=== PATIENT | male | born 1950 | race Caucasian/White ===

== ENCOUNTER 2016-07-02 15:16 | Inpatient (IN) ==
[2016-07-02] MEDS ORDERED: 0.9 % SODIUM CHLORIDE 1,000 ML IV ONE (15:37)
--- NOTE | 2016-07-02 15:37 | Emergency Department Note ---
Wound/Laceration HPI - General Chief Complaint: Wound/Laceration Stated Complaint: Wound infection to ble Time Seen by Provider: 07/02/16 15:18 Source: patient Mode of arrival: ambulatory Limitations: no limitations - History of Present Illness HPI Narrative: This patient was sent over from wound care for infected leg wounds and concern for sepsis with hypotension. The only other complaint patient has some sores on his sacral area. - Related Data Home Medications Medication Instructions Recorded Confirmed Aspirin/Calcium Carbonate/Mag 162.5 mg PO DAILY 04/15/15 07/02/16 [Aspirin Buffered 325 mg Tab] Timolol 0.5% Ophth Drops [Timoptic 1 gtt OU DAILY 04/18/15 07/02/16 0.5% Ophth Drops] amiodarone 200 mg tablet 200 mg PO QDAY 04/23/15 07/02/16 furosemide 40 mg tablet 40 mg PO QDAY 04/23/15 07/02/16 metoprolol tartrate 25 mg tablet 75 mg PO BID tab 04/23/15 07/02/16 atorvastatin 10 mg tablet 10 mg PO QHS tab 06/11/15 07/02/16 lisinopril 5 mg tablet 2.5 mg PO BID 09/03/15 07/02/16 Previous Rx's Medication Instructions Recorded Accu-Chek 1 each FS ACHS #100 strip 04/18/15 allopurinol 100 mg tablet 200 mg PO QDAY #180 tab 06/11/15 levothyroxine 25 mcg tablet 25 mcg PO QDAY #90 tab 06/12/15 budesonide-formoterol HFA 160 2 inh INHALATION Q12H #10.2 g 09/03/15 mcg-4.5 mcg/actuation aerosol inhaler glipizide 5 mg tablet 5 mg PO BID #90 tab 09/03/15 Allergies Allergy/AdvReac Type Severity Reaction Status Date / Time Sulfa (Sulfonamide Allergy Intermediate UNKNOWN Verified 09/03/15 13:47 Antibiotics) [SULFA(SULFONAMIDE ANTIBIOTICS)] Review of Systems Constitutional: Denies: fever Eyes: Denies: eye pain ENT ED: Denies: ear pain Cardiovascular: Denies: chest pain Respiratory: Denies: cough Gastrointestinal: Denies: abdominal pain, nausea Genitourinary: Denies: urgency Musculoskeletal: Reports: back pain Integumentary: Reports: rash, lesions Neurological: Denies: headache Psychiatric: Denies: anxiety Past Medical History - Past Medical History Medical history: Reports: arthritis, atrial fibrillation, CHF, COPD, coronary artery disease, diabetes, glaucoma, hyperlipidemia, hypertension, renal disease , thyroid disease Surgical history ED: Reports: tonsillectomy Psychiatric history: Reports: PTSD - Social History Alcohol use: Reports: None Drug use: Reports: none Physical Exam - General Limitations: no limitations General appearance: alert - Head Head exam: atraumatic - Eye Eye exam: Present: normal appearance - ENT ENT exam: normal exam - Neck Neck exam: Present: normal inspection - Chest Chest inspection: Present: normal inspection - Respiratory Respiratory exam: Present: normal lung sounds bilaterally - Cardiovascular Cardiovascular exam: Present: regular rate, normal rhythm, normal heart sounds - Abdominal Exam Abdominal exam: Present: soft. Absent: distention, tenderness - Rectal Exam Rectal exam: Present: deferred - Neurological Exam Neurological exam: Present: alert - Psychiatric Psychiatric exam: Present: normal affect - Skin Skin exam: Present: warm, dry Course Vital Signs Temperature 96.2 F L 07/02/16 15:17 Pulse Rate 62 07/02/16 15:17 Respiratory Rate 20 07/02/16 15:17 Blood Pressure 87/24 07/02/16 15:17 Pulse Oximetry (%) 98 07/02/16 15:17 Temperature 96.2 F L 07/02/16 15:17 Pulse Rate 131 H 07/02/16 18:43 Respiratory Rate 20 07/02/16 15:17 Blood Pressure 104/67 07/02/16 18:43 Pulse Oximetry (%) 100 07/02/16 18:43 Wound/Laceration - Lab Data Result diagrams: 07/02/16 15:40 07/02/16 15:40 Lab Results 07/02/16 07/02/16 07/02/16 Range/Units 15:40 15:40 15:40 WBC 10.3 (4.5-11.0) K/mcL RBC 4.06 L (4.50-5.90) M/mcL Hgb 11.8 L (13.5-16.5) g/dL Hct 36.8 L (41.0-55.0) % MCV 90.7 (80.0-100.0) fL MCH 29.1 (26.0-34.0) pg MCHC 32.1 (31.0-36.0) g/dL RDW 18.7 H (11.5-14.5) % Plt Count 247 (140-440) K/mcL MPV 9.9 (7.4-10.4) fL Gran % 73.1 (38.0-78.0) % Lymph % (Auto) 13.8 L (15.5-49.0) % [place] % (Auto) 6.7 (1.0-9.0) % Eos % (Auto) 5.9 (0.0-7.0) % Baso % (Auto) 0.5 (0.0-2.0) % Gran # 7.5 (1.8-8.0) K/mcL Lymph # 1.4 L (1.5-4.8) K/mcL [place] # 0.7 (0.1-0.9) K/mcL Eos # 0.6 (0.0-0.7) K/mcL Baso # 0.1 (0.0-0.3) K/mcL VBG Lactic Acid 1.6 (0.5-2.2) mmol/L Sodium 134 (133-145) mmol/L Potassium 4.5 (3.3-5.1) mmol/L Chloride 95 L (96-108) mmol/L Carbon Dioxide 22 (22-30) mmol/L Anion Gap 17.0 H (8-16) BUN 71 H (8-23) mg/dl Creatinine 2.7 H (0.7-1.2) mg/dl GFR Calculation 24 Glucose 141 H (70-105) mg/dL Calcium 8.7 (8.6-10.4) mg/dl Total Bilirubin 0.3 (0.0-1.0) mg/dL AST 13 (0-37) U/l ALT 12 (0-40) U/l Alkaline Phosphatase 87 (39-117) U/L Total Protein 7.3 (5.9-8.4) gm/dL Albumin 3.4 (3.2-5.2) gm/dL Globulin 3.9 H (2.2-3.7) gm/dL Albumin/Globulin Ratio 0.9 L (1.0-2.3) Disposition Clinical Impression: Cellulitis Disposition: Xfer As Outpt/Obs ([facility]) Condition: Good Referrals: Bienvenido,Bandar L [Primary Care Provider] - Time of Disposition: 19:00
[2016-07-02] MEDS ORDERED: VANCOMYCIN 1,000 MG in 0.9 % SODIUM CHLORIDE 250 ML IV ONE (15:51)
[2016-07-02] MEDS ORDERED: PIPERACILLIN SODIUM/TAZOBACTAM 3.375 GM in DEXTROSE 5% IN WATER 50 ML IV SCH (16:00)
[2016-07-02] MEDS ORDERED: HYDROmorphone 2 MG/ML SYRINGE IV PRN ×2 (16:00→20:24)
[2016-07-02] MEDS ORDERED: ONDANSETRON 4 MG/2 ML VIAL IV ONE (16:01)
[2016-07-02 16:32] LABS: Basophils # (Auto) 0.1 K/mcL (0.0-0.3); Basophils % (Auto) 0.5 % (0.0-2.0); Eosinophils # (Auto) 0.6 K/mcL (0.0-0.7); Eosinophils % (Auto) 5.9 % (0.0-7.0); Granulocytes % (Auto) 73.1 % (38.0-78.0); Lymphocytes # (Auto) 1.4 K/mcL (1.5-4.8); Lymphocytes % (Auto) 13.8 % (15.5-49.0); Mean Cell Volume 90.7 fL (80.0-100.0); Mean Corpuscular HGB Conc 32.1 g/dL (31.0-36.0); Mean Corpuscular Hemoglobin 29.1 pg (26.0-34.0); Monocytes # (Auto) 0.7 K/mcL (0.1-0.9); Monocytes % (Auto) 6.7 % (1.0-9.0); Platelet Count 247 K/mcL (140-440); RBC 4.06 M/mcL (4.50-5.90); Red Cell Distribution Width 18.7 % (11.5-14.5)
[2016-07-02 17:00] LABS: ALT/SGPT 12 U/l (0-40); Albumin 3.4 gm/dL (3.2-5.2); Albumin/Globulin Ratio 0.9 (1.0-2.3); Alkaline Phosphatase 87 U/L (39-117); Blood Urea Nitrogen 71 mg/dl (8-23)
[2016-07-02] MEDS: 0.9 % SODIUM CHLORIDE 1,000 ML IV SCH ×2 (20:02→20:05)
[2016-07-02] MEDS ORDERED: 0.9 % SODIUM CHLORIDE 1,000 ML IV SCH (20:24)
[2016-07-02] MEDS ORDERED: traZODone HCL 50 MG TABLET PO PRN ×2 (20:24→22:03)
[2016-07-02] MEDS ORDERED: ACETAMINOPHEN 1,000 MG/100 ML BOTTLE IV PRN ×2 (20:24→22:03)
[2016-07-02] MEDS ORDERED: MAGNESIUM SULFATE 2 GM/50 ML BAG IV PRN ×2 (20:24→22:03)
[2016-07-02] MEDS ORDERED: DEXTROSE 50% 50 ML VIAL IV PRN (20:24)
[2016-07-02] MEDS ORDERED: ONDANSETRON 4 MG/2 ML VIAL IV PRN ×2 (20:24→22:03)
[2016-07-02] MEDS ORDERED: ACETAMINOPHEN 325 MG TABLET PO PRN ×2 (20:24→22:03)
[2016-07-02] MEDS ORDERED: guaiFENesin/CODEINE 10 ML UDC PO PRN ×2 (20:24→22:03)
[2016-07-02] MEDS ORDERED: VANCOMYCIN PER PHARMACY IV ONE ×2 (20:24→22:03)
[2016-07-02] MEDS ORDERED: METOPROLOL TARTRATE 25 MG TABLET PO SCH (21:00)
[2016-07-02] MEDS ORDERED: SENNOSIDES/DOCUSATE SODIUM 1 TAB TABLET PO SCH (21:00)
[2016-07-02] MEDS ORDERED: LISINOPRIL 5 MG TABLET PO SCH (21:00)
[2016-07-02] MEDS ORDERED: DOCUSATE SODIUM 100 MG CAPSULE PO SCH (21:00)
[2016-07-02] MEDS ORDERED: Budesonide/Formoterol Fumarate [Symbicort] 160/4.5 mcg Inhaler INH SCH (21:00)
[2016-07-02] MEDS ORDERED: INSULIN LISPRO 1 UNIT/0.01 ML UNIT SQ SCH (21:00)
[2016-07-02] MEDS ORDERED: ATORVASTATIN 20 MG TABLET PO SCH (21:00)
[2016-07-02] MEDS ORDERED: HEPARIN 5,000 UNIT/ML VIAL SQ SCH (21:00)
[2016-07-02] MEDS ORDERED: METOPROLOL TARTRATE 5 MG/5 ML VIAL IV ONE ×5 (21:20→23:38)
[2016-07-02] MEDS ORDERED: 0.9 % SODIUM CHLORIDE 10 ML SYRINGE IV SCH (22:00)
[2016-07-02 22:05] LABS: Basophils # (Auto) 0 K/mcL (0.0-0.3); Basophils % (Auto) 0.1 % (0.0-2.0); Eosinophils # (Auto) 0.6 K/mcL (0.0-0.7); Eosinophils % (Auto) 4.6 % (0.0-7.0); Granulocytes % (Auto) 77.5 % (38.0-78.0); Lymphocytes # (Auto) 1.1 K/mcL (1.5-4.8); Lymphocytes % (Auto) 9.2 % (15.5-49.0); Mean Cell Volume 90.8 fL (80.0-100.0); Mean Corpuscular HGB Conc 32.2 g/dL (31.0-36.0); Mean Corpuscular Hemoglobin 29.2 pg (26.0-34.0); Monocytes # (Auto) 1.1 K/mcL (0.1-0.9); Monocytes % (Auto) 8.6 % (1.0-9.0); Platelet Count 224 K/mcL (140-440); RBC 3.93 M/mcL (4.50-5.90); Red Cell Distribution Width 18.5 % (11.5-14.5)
[2016-07-02 22:13] LABS: Creatine Kinase MB 1.9 ng/ml (0-4.9)
[2016-07-02 22:17] LABS: Blood Urea Nitrogen 66 mg/dl (8-23); Creatine Kinase 35 IU/L (24-195)
[2016-07-02] MEDS ORDERED: METOPROLOL TARTRATE 25 MG TABLET PO ONE (23:20)
[2016-07-02] MEDS ORDERED: AMIODARONE HCL 200 MG TABLET ONE (23:48)
[2016-07-02] MEDS ORDERED: METOPROLOL TARTRATE 25 MG TABLET ONE (23:49)
[2016-07-03] MEDS ORDERED: PIPERACILLIN SODIUM/TAZOBACTAM 2.25 GM in DEXTROSE 5% IN WATER 50 ML IV SCH
--- NOTE | 2016-07-03 00:46 | History and Physical Report ---
DATE OF ADMISSION: 07/02/2016 DATE OF ADMISSION: 07/02/2016 REASON FOR ADMISSION: Weakness, hypotension, bilateral lower extremity cellulitis, redness, and referred to [facility] ER due to concerns from the wound care clinic. HISTORY OF CHIEF COMPLAINT: The patient is a 65-year-old with a known history of diabetes and extensive peripheral vascular disease, coronary artery disease status post CABG along with diabetic neuropathy and lower extremity wounds. The patient has been seen at the wound care clinic, and due to low blood pressures, fever and weakness, was referred to [facility] ER to rule out sepsis. Initial workup was significant for atrial fibrillation with intermittent rapid ventricular rate along with evidence of bilateral lower extremity cellulitis. The patient was started on antibiotic coverage after blood cultures were drawn. Hospitalist Service was consulted. At the time of examination, the patient is alert and able to provide most of the history. He is accompanied with daughter and son. Son endorses the patient being intermittently confused and gibberish over the last couple of weeks and has significant decline in overall status. The patient had a recent 4 vessel CABG and sees Dr. Flores for chronic kidney disease. The patient has been having difficulty urinating with poor urine output. He also has lack of appetite and has not eaten much and has not anything to drink over the last 36 hours. He feels significantly weak and dehydrated. Other than that, he denies diarrhea or dysuria. He endorses to bilateral lower extremity swelling, oozing and redness along with pain. He endorses intermittent shaking chills. REVIEW OF SYSTEMS: Ten-point review of system was performed and negative except for the ones discussed above. PAST MEDICAL HISTORY: 1. History of coronary artery disease with ischemic cardiomyopathy, EF 25 percent, status post 4-vessel CABG. 2. Diabetes mellitus type 2. 3. History of COPD. 4. Chronic kidney disease with a baseline creatinine of 1.9. Follows up with Dr. Flores. Current creatinine 2.7. 5. Atrial fibrillation, flutter. 6. Hypertension. 7. Hypothyroidism. 8. Hyperuricemia. PAST SURGICAL HISTORY: Recent CABG, 2016. SOCIAL HISTORY: The patient is a former smoker but quit in 2014, history of alcoholism, but quit, uses marijuana. His son and daughter are accompanying. His daughter Milly Durbin is the POA who can be reached at [phone]. PHYSICAL EXAMINATION: GENERAL: The patient is alert but in moderate distress, minimally short of breath. VITAL SIGNS: BMI 27. Height 6 feet 2 inches. Blood pressure 101/61, respiration rate 20, temperature 96.2, pulse 132, sats 95 percent on 3 liters of oxygen. HEENT: Pupils are sluggish and miotic, left pupillary asymmetry. No scleral icterus. Head is normocephalic. NECK: No lymphadenopathy. CHEST: S1 and S2. Tachycardia, irregular rhythm. Midline sternotomy incision. Diminished breath sounds at bases. ABDOMEN: Soft, nontender, sluggish bowel sounds. LOWER EXTREMITIES: Bilateral lower extremity excoriation along with redness, induration, erythema and oozing around the moreira; redness extends up to below the knee from mid foot, minimal lymphedema, with no cyanosis or clubbing. SKIN: Otherwise, no suspicious lesions. PSYCHIATRIC: Anxious. NEURO: Moving all 4 extremities. Occasional confusion. LABS AND IMAGING: White count 10.3, hemoglobin 11.8, platelets 247. Lactic acid 1.6. INR 1.6. Sodium 130, potassium 4.5, creatinine 2.7, and BUN 71. CRP 5.8, total protein 7.3. X-ray chest: Cardiomegaly, increased vascular prominence, left basilar infiltrate. ASSESSMENT AND PLAN: A 65-year-old admitted with sepsis along with mental status change and possible left lower lobe pneumonia along with atrial fibrillation with rapid ventricular response. 1. Sepsis by criteria. Start patient on crystalloids, antibiotic coverage. Evidence of end organ dysfunction including acute kidney injury/atrial fibrillation with rapid ventricular response. Cultures pending, broad antibiotic coverage and aggressive source evaluation. 2. Likely left lower lobe pneumonia. Start antibiotic coverage with Zosyn, vancomycin. Sputum cultures along with blood cultures, pulmonary toilet. 3. Atrial fibrillation with rapid ventricular response. Continue rate control with beta eugene/amiodarone. 4. Mental status change, rule out cerebrovascular accident with head CT. INR subtherapeutic. High risk of cardioembolic cerebrovascular accident. Continue aspirin. 5. Acute kidney injury, likely secondary to sepsis end organ effect. Continue monitoring renal function and consult nephrology. 6. Hypoxia secondary to likely pneumonia. Continue supplemental oxygen. ABGs. 7. Bilateral lower extremity cellulitis. Wound care consult. Continue antibiotic coverage along with aggressive wound care. 8. History of coronary artery disease. Continue prior home medications. 9. Hypothyroidism. Continue thyroxine. 10. History of gout, continue allopurinol. 11. Diabetes mellitus type 2. Continue prandial insulin/glipizide. 12. Hypertension/coronary artery disease. Continue LATONYA inhibitor/beta eugene. PLAN FOR TODAY: 1. Admit as inpatient. 2. Nephrology and Wound Care consult. 3. Sepsis management per guidelines. 4. Broad antibiotic coverage. 5. Rate control measures. If inadequate response to beta eugene use calcium channel eugene. 6. Consider transfer to tertiary center in light of high complexity admit and need for speciality backup if patient fails to improve. Overall, a high-complexity admit with [place] score 17, mandating high risk mortality in light of multiple comorbidities. The patient will be admitted to intensive care unit. TIME SPENT: Over 95 minutes, including 55 minutes history and physical and 40 minutes critical care time spent on rate control measures, CVA workup, discussions with care provider and care coordination. AA:shelley Job ID: [id number] Doc ID: [id number] Ariel HAIDER
[2016-07-03] MEDS: HYDROmorphone 2 MG/ML SYRINGE IV PRN ×5 (00:50→20:51)
[2016-07-03] MEDS ORDERED: PIPERACILLIN SODIUM/TAZOBACTAM 2.25 GM VIAL IV ONE ×2 (01:40→05:59)
[2016-07-03] MEDS: PIPERACILLIN SODIUM/TAZOBACTAM 2.25 GM in DEXTROSE 5% IN WATER 50 ML IV SCH ×4 (01:40→18:06)
[2016-07-03] MEDS: 0.9 % SODIUM CHLORIDE 1,000 ML IV SCH ×2 (01:45→18:10)
[2016-07-03] MEDS ORDERED: fentaNYL 100 MCG/2 ML VIAL IV ONE ×2 (02:13→02:32)
[2016-07-03 05:58] LABS: Mean Cell Volume 89.8 fL (80.0-100.0); Mean Corpuscular HGB Conc 32.4 g/dL (31.0-36.0); Mean Corpuscular Hemoglobin 29.1 pg (26.0-34.0); Platelet Count 192 K/mcL (140-440); RBC 3.41 M/mcL (4.50-5.90); Red Cell Distribution Width 18.4 % (11.5-14.5)
[2016-07-03] MEDS: 0.9 % SODIUM CHLORIDE 10 ML SYRINGE IV SCH ×3 (06:01→21:02)
--- NOTE | 2016-07-03 06:11 | XRay Report ---
CLINICAL INFORMATION: Tachycardia. Code stroke. TECHNIQUE: AP portable semiupright chest x-ray COMPARISON: Previous examination dated 04/14/2015, 07/11/2008 FINDINGS: Previous median sternotomy. No focal pulmonary parenchymal infiltrate or mass. Heart size and vascularity are within normal limits. No pulmonary edema. No acute or focal abnormality. IMPRESSION: No acute abnormality. Interpreted and Authenticated by: Pramod Lucio 07/03/16
--- NOTE | 2016-07-03 06:13 | Cat Scan Report ---
CLINICAL INFORMATION: Stroke symptoms COMPARISON: None. TECHNIQUE: Axial noncontrast-enhanced images through the brain. FINDINGS: No acute intracranial hemorrhage. No intra-axial hematoma. No focal intra-axial attenuation abnormality. No localized mass effect. There is cerebral atrophy with enlarged ventricles and superficial subarachnoid spaces for age. Brainstem and cerebellum are negative. No extra-axial, intracranial abnormality. No subdural hematoma. No subarachnoid hemorrhage. Basilar cisterns are normal. No calvarial lesions. Skull base is negative. There are findings consistent with acute right maxillary sinusitis. Examination was initially interpreted by [facility] IMPRESSION: 1. Cerebral atrophy. 2. No acute intracranial hemorrhage. No acute abnormality. 3. Air-fluid level in right maxillary sinus. Interpreted and Authenticated by: Pramod Lucio 07/03/16
[2016-07-03 06:19] LABS: Vancomycin,Random 9.1 ug/ml
[2016-07-03 06:35] LABS: ALT/SGPT 8 U/l (0-40); Albumin 2.6 gm/dL (3.2-5.2); Albumin/Globulin Ratio 0.8 (1.0-2.3); Alkaline Phosphatase 63 U/L (39-117); Bilirubin,Direct < 0.2 mg/dL (0.0-0.3); Blood Urea Nitrogen 67 mg/dl (8-23); Gamma Glutamyl Transpeptidase 15 U/L (8-61); Magnesium 2.1 mg/dL (1.6-2.5); Phosphorous 4.8 mg/dL (2.7-4.5); Uric Acid 9.7 mg/dL (2.5-8.0)
[2016-07-03] MEDS: glipiZIDE 5 MG TABLET PO SCH ×2 (07:23→18:06)
[2016-07-03] MEDS: PANTOPRAZOLE 40 MG TABLET PO SCH (07:24)
[2016-07-03] MEDS: LEVOTHYROXINE 25 MCG TABLET PO SCH (07:24)
[2016-07-03] MEDS ORDERED: LEVOTHYROXINE 25 MCG TABLET PO SCH (07:30)
[2016-07-03] MEDS ORDERED: glipiZIDE 5 MG TABLET PO SCH (07:30)
[2016-07-03] MEDS ORDERED: PANTOPRAZOLE 40 MG TABLET PO SCH (07:30)
[2016-07-03] MEDS: INSULIN LISPRO 1 UNIT/0.01 ML UNIT SQ SCH ×3 (07:53→20:43)
[2016-07-03] MEDS: FUROSEMIDE 40 MG TABLET PO SCH (07:55)
[2016-07-03] MEDS: ALLOPURINOL 100 MG TABLET PO SCH (07:55)
[2016-07-03] MEDS: ASPIRIN 81 MG TAB.CHEW PO SCH (07:55)
[2016-07-03] MEDS: METOPROLOL TARTRATE 25 MG TABLET PO SCH ×2 (07:56→21:01)
[2016-07-03] MEDS: FOLIC ACID 1 MG TABLET PO SCH (07:56)
[2016-07-03] MEDS: DOCUSATE SODIUM 100 MG CAPSULE PO SCH ×2 (07:57→20:46)
[2016-07-03] MEDS: AMIODARONE HCL 200 MG TABLET PO SCH (07:57)
[2016-07-03] MEDS: HEPARIN 5,000 UNIT/ML VIAL SQ SCH ×2 (07:57→20:46)
[2016-07-03] MEDS ORDERED: AMIODARONE HCL 200 MG TABLET PO SCH (08:00)
[2016-07-03] MEDS: MULTIVIT,THER IRON,CA,FA & MIN 1 TABLET PO SCH (08:01)
[2016-07-03 08:31] LABS: Anisocytosis 1+ (NONE SEEN); Band Neutrophils % 3 % (0-10); Eosinophils % (Manual) 3 % (0-7); Lymphocytes % 2 % (15-49); Monocytes % (Manual) 7 % (1-9); Platelet Estimate NORMAL (NORMAL); RBC Morphology ABNORM (NORMAL); Segmented Neutrophils % 85 % (38-78)
[2016-07-03] MEDS ORDERED: THIAMINE 100 MG in 0.9 % SODIUM CHLORIDE 50 ML IV SCH (09:00)
[2016-07-03] MEDS ORDERED: ALLOPURINOL 100 MG TABLET PO SCH (09:00)
[2016-07-03] MEDS ORDERED: LISINOPRIL 5 MG TABLET PO SCH (09:00)
[2016-07-03] MEDS ORDERED: TIMOLOL 0.5% OPHTH DROPS BOTTLE 5ML OU SCH (09:00)
[2016-07-03] MEDS ORDERED: FOLIC ACID 1 MG TABLET PO SCH (09:00)
[2016-07-03] MEDS ORDERED: ASPIRIN 81 MG TAB.CHEW PO SCH (09:00)
[2016-07-03] MEDS ORDERED: MULTIVIT,THER IRON,CA,FA & MIN 1 TABLET PO SCH (09:00)
[2016-07-03] MEDS ORDERED: FUROSEMIDE 40 MG TABLET PO SCH (09:00)
[2016-07-03] MEDS ORDERED: NOREPINEPHRINE BITARTRATE 16 MG in 0.9 % SODIUM CHLORIDE 234 ML IV SCH (09:15)
[2016-07-03] MEDS ORDERED: VASOPRESSIN 20 UNIT in DEXTROSE 5% IN WATER 99 ML IV SCH (09:15)
[2016-07-03] MEDS: 0.9 % SODIUM CHLORIDE 250 ML IV SCH ×4 (10:07→21:45)
[2016-07-03] MEDS: Budesonide/Formoterol Fumarate [Symbicort] 160/4.5 mcg Inhaler INH SCH ×2 (10:08→21:22)
[2016-07-03] MEDS: THIAMINE 100 MG in 0.9 % SODIUM CHLORIDE 50 ML IV SCH (10:08)
[2016-07-03] MEDS: TIMOLOL 0.5% OPHTH DROPS BOTTLE 5ML OU SCH (10:09)
--- NOTE | 2016-07-03 10:40 | Internal Med Progress Note ---
Medical - PN: Subj Patient information: Note initiated : 07/03/16 at 10:28 am Patient: Guy Hernandez a 65 y/o M admitted on 07/02/16 for Wound Infection/ Sepsis, Cellulitis. Chief Complaint: [] Interval history: 07/02- patient admitted with A. fib RVR, severe sepsis acute organ dysfunction and hypotension from lower extremity cellulitis. patient carries a history of diabetic hypertensive/nephrosclerosis with stage III kidney disease and creatinine of 2.7 on presentation. he was referred from wound care clinic for possible wound debridement. Patient carries a history of ischemic cardiomyopathy with EF 25% and recent 4 vessel CABG. patient admitted to ICU after he had a brief episode of neurological changes with increasing confusion and dysarthric speech on medical floor. Negative stat head CT. 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 Patient carries a history of atrial fib flutter. INR was subtherapeutic at 1.6. High risk cardioembolic CVA. Family made aware of the entire situation including possibility of stroke. attempts to transfer to tertiary Center failed due to lack of available beds at [facility]. Patient not a candidate for TPA in light of Coumadin/aspirin and unclear time of onset of symptoms as per son patient has had similar symptoms within intermittent confusion over the last couple of weeks. Wound care, nephrology consult ordered. patient admitted to ICU for close neuro checks/A. fib RVR and severe sepsis management. ABG pH 7.35/41/163 on 8 L oxygen. x-ray chest /stat head CTno acute abnormality. Over 75 minutes critical care time spent in stabilization and care coordination during discussions with physicians. 2/2- patient alert and responding to verbal commands. continues to be critically ill. ventricular rate controlled on amiodarone/metoprolol, blood pressures around 80s. Hypoxic requiring 4 L oxygen however negative chest imaging for infectious process. V/Q mismatch based on ABGs. Given tachycardia hypoxia PE high in differential. full dose anticoagulation on hold due to risk of hemorrhagic conversion and resume if no evidence of acute stroke. worsening leukocytosis at 14,000. potassium at 5.7. Creatinine 2.6. - Constitutional Vitals: Vital Signs Temp Pulse Resp BP Pulse Ox 98.6 F 108 H 20 88/56 92 07/03/16 08:00 07/03/16 08:00 07/03/16 08:00 07/03/16 08:00 07/03/16 08:00 Period Temp Pulse Resp BP Sys/Zee Pulse Ox Last 24 Hr 98.6 F-102.5 F 93-146 15-24 76-145/50-92 89-100 Intake and Output 07/02/16 07/03/16 07/03/16 21:59 05:59 13:59 Intake Total 520 / 520 Output Total 381 / 381 450 / 450 Balance 139 / 139 -450 / -450 Weight 214 lb 214 lb Intake & Output: Intake & Output 07/02/16 07/03/16 07/03/16 21:59 05:59 13:59 Intake Total 520 / 520 Output Total 381 / 381 450 / 450 Balance 139 / 139 -450 / -450 Weight 214 lb 214 lb Intake: IV 100 / 100 Oral 420 / 420 Output: Urine Catheter Amount 380 / 380 450 / 450 # of times incontinent of 1 / 1 urine Other: # Voids 1 General appearance: cooperative, no acute distress Exam: no unilateral deficits A. fib with intermittent RVR Hypotensive Poor urine output anxious Nondistended abdomen Medical - PN: Obj Da - Labs CBC & Chem 7: 07/03/16 04:00 07/03/16 04:00 Labs: Abnormal Lab Results 07/03/16 07/03/16 07/02/16 04:00 04:00 21:10 WBC 14.0 H RBC 3.41 L Hgb 9.9 L Hct 30.6 L RDW 18.4 H Lymph % (Auto) Gran # Lymph # [place] # Seg Neutrophils % 85 H Lymphocytes % 2 L RBC Morphology Abnorm A Anisocytosis 1+ A PT INR Potassium 5.7 H 5.5 H Carbon Dioxide 20 L 21 L BUN 67 H 66 H Creatinine 2.6 H 2.5 H Glucose 183 H 115 H Uric Acid 9.7 H Calcium 7.7 L 8.5 L Phosphorus 4.8 H Total Protein 5.7 L Albumin 2.6 L Albumin/Globulin Ratio 0.8 L 07/02/16 07/02/16 21:10 21:10 WBC 12.5 H RBC 3.93 L Hgb 11.5 L Hct 35.7 L RDW 18.5 H Lymph % (Auto) 9.2 L Gran # 9.7 H Lymph # 1.1 L [place] # 1.1 H Seg Neutrophils % Lymphocytes % RBC Morphology Anisocytosis PT 19.1 H INR 1.6 H Potassium Carbon Dioxide BUN Creatinine Glucose Uric Acid Calcium Phosphorus Total Protein Albumin Albumin/Globulin Ratio Meds: Medications Acetaminophen (Tylenol) 650 mg PO Q4-6HP PRN PRN Reason: PAIN/FEVER > 101 Allopurinol (Zyloprim) 200 mg PO QDAY [facility] Last Admin: 07/03/16 07:55 Dose: 200 mg Amiodarone HCl (Cordarone) 200 mg PO QAMCC [facility] Last Admin: 07/03/16 07:57 Dose: 200 mg Aspirin (Aspirin) 162 mg PO DAILY [facility] Last Admin: 07/03/16 07:55 Dose: 162 mg Atorvastatin Calcium (Lipitor) 10 mg PO HS [facility] Dextrose (Dextrose 50%) 0 ml IV UD PRN PRN Reason: Hypoglycemia Diagnostic Test (Pha) (Accu-Chek) 1 each FS ACHS [facility] Last Admin: 07/03/16 07:53 Dose: 1 each Docusate Sodium (Colace) 100 mg PO BID [facility] Last Admin: 07/03/16 07:57 Dose: 100 mg Folic Acid (Folic Acid) 1 mg PO DAILY [facility] Last Admin: 07/03/16 07:56 Dose: 1 mg Furosemide (Lasix) 40 mg PO QDAY [facility] Last Admin: 07/03/16 07:55 Dose: 40 mg Glipizide (Glucotrol) 5 mg PO BIDAC [facility] Last Admin: 07/03/16 07:23 Dose: 5 mg Guaifenesin/Codeine Phosphate (Robitussin Ac) 10 ml PO Q4HP PRN PRN Reason: Cough Heparin Sodium (Porcine) (Heparin) 5,000 unit SQ Q12 [facility] Last Admin: 07/03/16 07:57 Dose: 5,000 unit Hydromorphone HCl (Dilaudid) 0 mg IV Q4HP PRN PRN Reason: Pain Last Admin: 07/03/16 07:27 Dose: 0.5 mg Magnesium Sulfate (Magnesium Sulfate) 2 gm in 50 mls @ 50 mls/hr IV UD PRN PRN Reason: MG = or < 1.7 Sodium Chloride (Sodium Chloride 0.9%) 1,000 mls @ 50 mls/hr IV .Q20H [facility] Stop: 07/05/16 08:23 Last Admin: 02/01/17 20:05 Dose: 50 mls/hr Acetaminophen (Ofirmev) 1,000 mg in 100 mls @ 200 mls/hr IV Q6HP PRN PRN Reason: PAIN/FEVER > 101 Last Infusion: 07/03/16 01:16 Dose: Infused Piperacillin Sod/Tazobactam (Sod 2.25 gm/ Dextrose) 50 mls @ 100 mls/hr IV Q6H [facility] Last Admin: 07/03/16 06:00 Dose: Not Given Thiamine HCl 100 mg/ Sodium (Chloride) 51 mls @ 50 mls/hr IV DAILY [facility] Stop: 07/05/16 10:02 Last Admin: 07/03/16 10:08 Dose: 50 mls/hr Sodium Chloride (Sodium Chloride 0.9%) 250 mls @ 20 mls/hr IV .[id number] [facility] Last Admin: 07/03/16 10:07 Dose: 20 mls/hr Norepinephrine Bitartrate 16 (mg/ Sodium Chloride) 250 mls @ 9.37 mls/hr IV Q24H ALISSA; 10 MCG/MIN PRN Reason: Protocol Last Admin: 07/03/16 10:07 Dose: 4 mcg/min, 3.75 mls/hr Sodium Chloride (Sodium Chloride 0.9%) 250 mls @ 20 mls/hr IV .[id number] [facility] Last Admin: 07/03/16 10:09 Dose: 20 mls/hr Vancomycin HCl 1,000 mg/ (Sodium Chloride) 250 mls @ 250 mls/hr IV ONCE ONE Stop: 07/03/16 11:59 Insulin Human Lispro (Humalog) 0 unit SQ ACHS [facility] PRN Reason: Protocol Last Admin: 07/03/16 07:53 Dose: 3 unit Iron Carb/Multivit/Railroad Wheels And Axle Inspector/Folic Acid (Multivitamin W/Minerals) 1 tab PO DAILY [facility] Last Admin: 07/03/16 08:01 Dose: 1 tab Levothyroxine Sodium (Synthroid) 25 mcg PO QAMAC [facility] Last Admin: 07/03/16 07:24 Dose: 25 mcg Lisinopril (Zestril) 2.5 mg PO BID [facility] Last Admin: 07/03/16 07:54 Dose: 2.5 mg Metoprolol Tartrate (Lopressor) 75 mg PO BID [facility] Last Admin: 07/03/16 07:56 Dose: Not Given Ondansetron HCl (Zofran) 4 mg IV Q4-6HP PRN PRN Reason: Nausea And Vomiting Pantoprazole Sodium (Protonix) 40 mg PO QAMAC [facility] Last Admin: 07/03/16 07:24 Dose: 40 mg Budesonide/Formoterol Fumarate [Symbicort] 160/4.5 Mcg Inhaler 2 dose INH Q12H [facility] Last Admin: 07/03/16 10:08 Dose: Not Given Senna/Docusate Sodium (Senna Plus Tablet) 1 tab PO HS [facility] Sodium Chloride (Saline Flush) 10 ml IV Q8 [facility] Last Admin: 07/03/16 06:01 Dose: Not Given Timolol Maleate (Timoptic 0.5% Ophth Drops) 1 gtt OU DAILY [facility] Last Admin: 07/03/16 10:09 Dose: Not Given Trazodone HCl (Desyrel) 50 mg PO HSP PRN PRN Reason: Insomnia Last Admin: 07/02/16 23:39 Dose: 50 mg Medical - PN: A/P - Time Spent With Patient Total time spent is greater than 50% in coordination of care (as documented) at patient's floor/unit and/or counseling patient: Greater than 35 minutes (critical care time 75 minutes) (1) Septic shock Status: Acute Assessment and plan: * Septic shock with multiorgan dysfunction. A. fib RVR/ONUR- likely source [place] cellulitis. Broad antibiotic coverage. Cultures pending. Crystalloids and vasopressors to keep map at goal. Critically ill. [place] score over 2084 high-risk mortality. * A. fib RVR on amiodarone/metoprolol-continue rate control measures * lower extremity cellulitis-on Zosyn/vancomycin. Wound care consulted * New onset mental status changes rule out CVA in light of sub-therapeutic INR and high risk cardiac embolic CVA secondary to A. fib flutter. Avoid full dose and decortication until MRI negative * Hypoxia with tachycardia -very high risk PE based on [place] score. we'll start full dose and accommodation if MRI negative to avoid hemorrhagic conversion with early anticoagulation. * acute and chronic kidney disease-nephrology consulted * Hyperkalemia-nephrology on board * History of DM type II-prandial insulin/glipizide * ischemia ischemic cardiomyopathy EF 25% status post 4 vessel CABG continue metoprolol/lisinopril/amiodarone/ * history of gout on allopurinol * hypothyroidism on thyroxine * Full CODE STATUS Plan * Await MRI brain * septic shock management per guidelines * Nephrology/wound consult * start full dose anticoagulation if no evidence of acute CVA * Pre-existing medical condition management as above * High risk mortality based on [place] II score critical care time over 75 minutes spent on review of blood gas/drips pressure management/discussion with are providers and on care coordination Current Visit: Yes Medical - PN: Qual - VTE Deep Vein Thrombosis/Pulmonary Embolism Present on Admission: No
[2016-07-03] MEDS ORDERED: VANCOMYCIN 1,000 MG in 0.9 % SODIUM CHLORIDE 250 ML IV ONE (11:00)
[2016-07-03 12:30] LABS: Appearance,Urine CLEAR; Bilirubin,Urine NEG (NEG); Color,Urine YELLOW; Glucose,Urine (UA) 50 mg/dL (NEG); Leukocyte Esterase,Urine NEG /uL (NEG); Nitrate,Urine NEG (NEG); Protein,Urine NEG (NEG); Specific Gravity,Urine 1.012 (1.000-1.035); Urine Blood NEG mg/dL (<0.03); Urobilinogen,Urine NEG (NEG)
[2016-07-03 12:43] LABS: Strep Pneumoniae Antigen - UR NEGATIVE (NEGATIVE)
[2016-07-03] MEDS: MUPIROCIN CRM 2% 15 GM TUBE TOPICAL SCH ×2 (13:57→20:44)
[2016-07-03] MEDS ORDERED: WARFARIN 2.5 MG TABLET PO ONE (14:00)
[2016-07-03 14:05] LABS: Blood Urea Nitrogen 66 mg/dl (8-23)
--- NOTE | 2016-07-03 15:01 | Nephrology Consult Note ---
[id number] Service Date, if different from initiated Date: [] Patient: Guy Hernandez 65 y/o M admitted on 07/02/16 for Wound Infection/ Sepsis, Cellulitis. Chief Complaint: [] Consult date: 07/03/16 acute renal failure, hyperkalemia Requesting physician: Ariel Frias - Chief Complaint hypotension - History of Present Illness Patient is a 65 y/o white male with PMH of HTN, DM type 2, CAD, CHF, CKD and other multiple medical issues who was sent to the ED yesterday for evaluation of hypotension Patient could not provide clear history He states that he was discharged from [facility] a few weeks ago, he has been struggling with edema and LE wounds and was following with wound care for the same, he was seen by Dr Rojo yesterday and was found ot be hypotensive, Afib with RVR and was sent to the ED, patient later was found to have confusion and dysarthria and transferred to ICU overnight Head CT was negative for CVA, MRI brain is pending The patient was alert and able to provide some information He admits to non compliance with diet since discharge, also has been taking NSAIDS every day for pain c/o worsening edema denies SOB, CP c/o poor urinary output while at home, this has improved today denies fever denies GI symptoms Review of Systems All systems PM: reviewed and no additional remarkable complaints except as stated (as in HPI) Past History Past medical history: HTN, DM type 2 CAD CHF CKD COPD Afib hypothyroidism h/o hyperkalemia Past surgical history: h/o colonoscopy states had CABG done last year Past family history: not pertinent Past social history: states recently discharged from has h/o alcohol abuse Medications and Allergies Home Medications Medication Instructions Recorded Confirmed Type Aspirin/Calcium Carbonate/Mag 162.5 mg PO DAILY 04/15/15 07/02/16 History [Aspirin Buffered 325 mg Tab] Timolol 0.5% Ophth Drops [Timoptic 1 gtt OU DAILY 04/18/15 07/02/16 History 0.5% Ophth Drops] amiodarone 200 mg tablet 200 mg PO QDAY 04/23/15 07/02/16 History furosemide 40 mg tablet 40 mg PO QDAY 04/23/15 07/02/16 History metoprolol tartrate 25 mg tablet 75 mg PO BID tab 04/23/15 07/02/16 History atorvastatin 10 mg tablet 10 mg PO QHS tab 06/11/15 07/02/16 History lisinopril 5 mg tablet 2.5 mg PO BID 09/03/15 07/02/16 History Allergies Allergy/AdvReac Type Severity Reaction Status Date / Time Sulfa (Sulfonamide Allergy Intermediate UNKNOWN Verified 09/03/15 13:47 Antibiotics) [SULFA(SULFONAMIDE ANTIBIOTICS)] Exam - Vital Signs Vital signs: Temp Pulse Resp BP Pulse Ox 99.2 F 118 H 16 95/64 94 07/03/16 14:00 07/03/16 14:00 07/03/16 14:00 07/03/16 14:00 07/03/16 14:00 - General Appearance General appearance: appears started age, chronically ill EENT: mucous membranes moist Neck: JVD Respiratory: clear Cardiology: no rub, edema, irregular rhythm Gastrointestinal: no tenderness, no guarding Integumentary: warm and dry Neurologic: no asterixis, alert and oriented x3 Musculoskeletal: no erythema, no cyanosis Psychiatric: mood/affect appropriate Results - Lab Results 07/03/16 04:00 07/03/16 10:59 Most recent lab results Calcium 8.0 mg/dl (8.6-10.4) L 07/03/16 10:59 Phosphorus 4.8 mg/dL (2.7-4.5) H 07/03/16 04:00 Magnesium 2.1 mg/dL (1.6-2.5) 07/03/16 04:00 Assessment and Plan (1) Acute on chronic renal failure S.Creatinine 2.7-2.5, bun in 60's s.creatinine last august was 1.7-1.8, no labs since so unclear if renal function had declined in the interim period recent hypotension, sepsis, NSAID use likely contributing will obtain urinary studies will hold ACEI given persistent hyperkalemia please keep MAP to more than 65 please dose meds to egfr avoid nephrotoxic medications keep I/O, monitor vitals Hyperkalemia: from renal failure, use of ACEI lisinopril held will give a dose of kayexalate today on lasix and improved urine output so this will help diet changed to renal diet will ct to monitor Edema from CHF: on lasix 40 oral, would continue the same dose at present given sepsis would no increase the dose no pul edema Anemia: etiology multifactorial with infection, CKD contributing Will follow along Thank you for giving me an opportunity to participate in Mr Hernandez's medical care, appreciate it Status: Acute
--- NOTE | 2016-07-03 17:46 | General Surgery Consult Note ---
History of Present Illness Patient information: Note initiated : 07/03/16 at 5:36 pm Service Date, if different from initiated Date: [] Patient: Guy Hernandez 65 y/o M admitted on 07/02/16 for Wound Infection/ Sepsis, Cellulitis. Chief Complaint: [] Reason for consult: wound care Requesting physician: Ariel Frias History of present illness: 07/03/2016 I saw this patient in the morning along with the nursing staff and subsequently a along with Dr. Doan hospitalist physician. Patient is a 65-year-old male. He was sent from the wound care to the emergency room to be evaluated and managed for his acute change in mental status and deterioration of wounds all of both lower extremities. This was a significant development and interval change from his last evaluation. Patient is a middle-aged with long-standing history of posttraumatic stress disorder, to some extent self-neglect of his wounds. It has become progressively difficult to take care of him at home for further management. reportedly, patient was feeling extremely cold for the last 2 days. He was in bathtub for few hours yesterday. When he presented to the wound care center he had cold cyanotic feet and toes with grossly infected wounds of both legs with foul greenish yellow drainage. This was sepsis syndrome with underlying systemic involvement of other organs as well. Since admission, he has been appropriately treated under the dilation of hospitalist physician Dr. Doan . Evaluated by Dr. Flores director employee communications. Appreciate help and consultation of these physicians. Yesterday, I discussed his situation with the nurse practitioner Bandar Zarate at the [facility] in [facility]. reportedly, patient had declined care at the [facility] in the past. But at this time patient has reconsidered his situation and is agreeable to be admitted to the [facility] for further management and supportive care, physical therapy and wound management. Review of Systems ROS unobtainable: other (As per HPI) Past History Past medical history: hypertension type 2 diabetes coronary artery disease congestive heart failure and posttraumatic stress disorder.. Additionally he had cardiac arrhythmias when he was admitted yesterday. Past surgical history: open heart surgery in past. Past family history: patient lives by himself. He has his children living nearby him. Medications and Allergies Home Medications Medication Instructions Recorded Confirmed Type Aspirin/Calcium Carbonate/Mag 162.5 mg PO DAILY 04/15/15 07/02/16 History [Aspirin Buffered 325 mg Tab] Timolol 0.5% Ophth Drops [Timoptic 1 gtt OU DAILY 04/18/15 07/02/16 History 0.5% Ophth Drops] amiodarone 200 mg tablet 200 mg PO QDAY 04/23/15 07/02/16 History furosemide 40 mg tablet 40 mg PO QDAY 04/23/15 07/02/16 History metoprolol tartrate 25 mg tablet 75 mg PO BID tab 04/23/15 07/02/16 History atorvastatin 10 mg tablet 10 mg PO QHS tab 06/11/15 07/02/16 History lisinopril 5 mg tablet 2.5 mg PO BID 09/03/15 07/02/16 History Allergies Allergy/AdvReac Type Severity Reaction Status Date / Time Sulfa (Sulfonamide Allergy Intermediate UNKNOWN Verified 09/03/15 13:47 Antibiotics) [SULFA(SULFONAMIDE ANTIBIOTICS)] Exam Temp Pulse Resp BP Pulse Ox 99.5 F 112 H 14 105/69 100 07/03/16 16:00 07/03/16 16:00 07/03/16 16:00 07/03/16 16:00 07/03/16 16:00 - General physical appearance well developed, well nourished, moderate distress, moderate pain, chronically ill - Eyes PERRL, normal ocular movement - ENT normal pinna, normal nares, normal mucosa, no congestion, poor long term - Head Head exam IM: Present: atraumatic, normal inspection, normocephalic - Neck no masses, no bruits, trachea midline, no lymphadectomy, no venous distension - Cardiovascular Cardiovascular exam IM: Present: irregular rhythm - Respiratory normal expansion, normal respiratory effort absent breath sounds: bilateral (decreased breath sounds at bases) - Abdomen Abdomen: Present: soft, non tender, bowel sounds - Genitourinary Present: normal penis with no external lesions, other (Antony catheter draining clear urine) - Integumentary Present: other (grossly infected skin and subcutaneous region involving anterior aspect of both legs over the moreira area and dorsal aspect ) - Neurologic Present: normal coordination, other (stiffness of bolower extremis and signifiant deconditig from lack of physical therapy and activity) - Musculoskeletal Present: other (eessentially bedridden patient with stiffness of both lower extremities.) - Psychiatric Present: oriented to time, oriented to person, oriented to place, speech is normal, memory intact, other (depressed posttraumatic stress disorder. He is a [place] .) Results - Labs 07/03/16 04:00 07/03/16 10:59 Abnormal lab results 07/02/16 07/02/16 07/02/16 Range/Units 21:10 21:10 21:10 WBC 12.5 H (4.5-11.0) K/mcL RBC 3.93 L (4.50-5.90) M/mcL Hgb 11.5 L (13.5-16.5) g/dL Hct 35.7 L (41.0-55.0) % RDW 18.5 H (11.5-14.5) % Lymph % (Auto) 9.2 L (15.5-49.0) % Gran # 9.7 H (1.8-8.0) K/mcL Lymph # 1.1 L (1.5-4.8) K/mcL [place] # 1.1 H (0.1-0.9) K/mcL Seg Neutrophils % (38-78) % Lymphocytes % (15-49) % RBC Morphology (NORMAL) Anisocytosis (NONE SEEN) PT 19.1 H (11.9-14.5) sec INR 1.6 H (0.9-1.1) Potassium 5.5 H (3.3-5.1) mmol/L Carbon Dioxide 21 L (22-30) mmol/L Anion Gap (8-16) BUN 66 H (8-23) mg/dl Creatinine 2.5 H (0.7-1.2) mg/dl Glucose 115 H (70-105) mg/dL Uric Acid (2.5-8.0) mg/dL Calcium 8.5 L (8.6-10.4) mg/dl Phosphorus (2.7-4.5) mg/dL Total Protein (5.9-8.4) gm/dL Albumin (3.2-5.2) gm/dL Albumin/Globulin Ratio (1.0-2.3) Urine Glucose (UA) (NEG) mg/dL U [place] Prot/Creat Ratio mg:mg 07/03/16 07/03/16 07/03/16 Range/Units 04:00 04:00 10:59 WBC 14.0 H (4.5-11.0) K/mcL RBC 3.41 L (4.50-5.90) M/mcL Hgb 9.9 L (13.5-16.5) g/dL Hct 30.6 L (41.0-55.0) % RDW 18.4 H (11.5-14.5) % Lymph % (Auto) (15.5-49.0) % Gran # (1.8-8.0) K/mcL Lymph # (1.5-4.8) K/mcL [place] # (0.1-0.9) K/mcL Seg Neutrophils % 85 H (38-78) % Lymphocytes % 2 L (15-49) % RBC Morphology Abnorm A (NORMAL) Anisocytosis 1+ A (NONE SEEN) PT 21.2 H (11.9-14.5) sec INR 1.8 H (0.9-1.1) Potassium 5.7 H (3.3-5.1) mmol/L Carbon Dioxide 20 L (22-30) mmol/L Anion Gap (8-16) BUN 67 H (8-23) mg/dl Creatinine 2.6 H (0.7-1.2) mg/dl Glucose 183 H (70-105) mg/dL Uric Acid 9.7 H (2.5-8.0) mg/dL Calcium 7.7 L (8.6-10.4) mg/dl Phosphorus 4.8 H (2.7-4.5) mg/dL Total Protein 5.7 L (5.9-8.4) gm/dL Albumin 2.6 L (3.2-5.2) gm/dL Albumin/Globulin Ratio 0.8 L (1.0-2.3) Urine Glucose (UA) (NEG) mg/dL U [place] Prot/Creat Ratio mg:mg 07/03/16 07/03/16 07/03/16 Range/Units 10:59 11:37 11:37 WBC (4.5-11.0) K/mcL RBC (4.50-5.90) M/mcL Hgb (13.5-16.5) g/dL Hct (41.0-55.0) % RDW (11.5-14.5) % Lymph % (Auto) (15.5-49.0) % Gran # (1.8-8.0) K/mcL Lymph # (1.5-4.8) K/mcL [place] # (0.1-0.9) K/mcL Seg Neutrophils % (38-78) % Lymphocytes % (15-49) % RBC Morphology (NORMAL) Anisocytosis (NONE SEEN) PT (11.9-14.5) sec INR (0.9-1.1) Potassium 5.7 H (3.3-5.1) mmol/L Carbon Dioxide 18 L (22-30) mmol/L Anion Gap 18.0 H (8-16) BUN 66 H (8-23) mg/dl Creatinine 2.5 H (0.7-1.2) mg/dl Glucose 138 H (70-105) mg/dL Uric Acid (2.5-8.0) mg/dL Calcium 8.0 L (8.6-10.4) mg/dl Phosphorus (2.7-4.5) mg/dL Total Protein (5.9-8.4) gm/dL Albumin (3.2-5.2) gm/dL Albumin/Globulin Ratio (1.0-2.3) Urine Glucose (UA) 50 A (NEG) mg/dL U [place] Prot/Creat Ratio 0.27 H mg:mg Diabetes panel 07/02/16 07/03/16 07/03/16 Range/Units 21:10 04:00 10:59 Sodium 135 136 138 (133-145) mmol/L Potassium 5.5 H 5.7 H 5.7 H (3.3-5.1) mmol/L Chloride 98 101 102 (96-108) mmol/L Carbon Dioxide 21 L 20 L 18 L (22-30) mmol/L BUN 66 H 67 H 66 H (8-23) mg/dl Creatinine 2.5 H 2.6 H 2.5 H (0.7-1.2) mg/dl Glucose 115 H 183 H 138 H (70-105) mg/dL Calcium 8.5 L 7.7 L 8.0 L (8.6-10.4) mg/dl AST 11 (0-37) U/l ALT 8 (0-40) U/l Alkaline Phosphatase 63 (39-117) U/L Total Protein 5.7 L (5.9-8.4) gm/dL Albumin 2.6 L (3.2-5.2) gm/dL Triglycerides 59 (<150) mg/dl Calcium panel 07/02/16 07/03/16 07/03/16 Range/Units 21:10 04:00 10:59 Calcium 8.5 L 7.7 L 8.0 L (8.6-10.4) mg/dl Phosphorus 4.8 H (2.7-4.5) mg/dL Albumin 2.6 L (3.2-5.2) gm/dL Pituitary panel 07/02/16 07/03/16 07/03/16 Range/Units 21:10 04:00 10:59 Sodium 135 136 138 (133-145) mmol/L Potassium 5.5 H 5.7 H 5.7 H (3.3-5.1) mmol/L Chloride 98 101 102 (96-108) mmol/L Carbon Dioxide 21 L 20 L 18 L (22-30) mmol/L BUN 66 H 67 H 66 H (8-23) mg/dl Creatinine 2.5 H 2.6 H 2.5 H (0.7-1.2) mg/dl Glucose 115 H 183 H 138 H (70-105) mg/dL Calcium 8.5 L 7.7 L 8.0 L (8.6-10.4) mg/dl Adrenal panel 07/02/16 07/03/16 07/03/16 Range/Units 21:10 04:00 10:59 Sodium 135 136 138 (133-145) mmol/L Potassium 5.5 H 5.7 H 5.7 H (3.3-5.1) mmol/L Chloride 98 101 102 (96-108) mmol/L Carbon Dioxide 21 L 20 L 18 L (22-30) mmol/L BUN 66 H 67 H 66 H (8-23) mg/dl Creatinine 2.5 H 2.6 H 2.5 H (0.7-1.2) mg/dl Glucose 115 H 183 H 138 H (70-105) mg/dL Calcium 8.5 L 7.7 L 8.0 L (8.6-10.4) mg/dl Total Bilirubin 0.4 (0.0-1.0) mg/dL AST 11 (0-37) U/l ALT 8 (0-40) U/l Alkaline Phosphatase 63 (39-117) U/L Total Protein 5.7 L (5.9-8.4) gm/dL Albumin 2.6 L (3.2-5.2) gm/dL All other labs normal. Assessment and Plan (1) Cellulitis I agree with current ongoing medical management and broad-spectrum intravenous antibiotics. see detailed wound care instructions as an current orders. We will be following this patient in the hospital. recommend that casework specialist and case management social [facility] Bridger Zarate RN for transfer after stabilization of his condition. Status: Acute Priority: High Comment: complicated skin and skin structure infection of both legs anterior surface from the knee up to the ankles and dorsal surface Ankle brachial indices were done in the past 0.6 and 0.7 respectively right and left lower extremities. At this time, patient has a low flow syndrome and hypotension. He is on vasopressors and gradually improving. Qualifiers: Site of cellulitis: extremity Site of cellulitis of extremity: lower extremity Laterality: unspecified laterality Qualified Code(s): L03.119 - Cellulitis of unspecified part of limb
[2016-07-03] MEDS: ATORVASTATIN 20 MG TABLET PO SCH (20:47)
[2016-07-03] MEDS: SENNOSIDES/DOCUSATE SODIUM 1 TAB TABLET PO SCH (20:47)
[2016-07-04] MEDS: PIPERACILLIN SODIUM/TAZOBACTAM 2.25 GM in DEXTROSE 5% IN WATER 50 ML IV SCH ×5 (00:03→22:58)
[2016-07-04] MEDS: HYDROmorphone 2 MG/ML SYRINGE IV PRN ×5 (00:04→20:35)
[2016-07-04] MEDS: METOPROLOL TARTRATE 25 MG TABLET PO SCH ×3 (06:37→20:33)
[2016-07-04] MEDS: AMIODARONE HCL 200 MG TABLET PO SCH (06:37)
[2016-07-04 06:40] LABS: Mean Cell Volume 90.1 fL (80.0-100.0); Mean Corpuscular HGB Conc 31.6 g/dL (31.0-36.0); Mean Corpuscular Hemoglobin 28.5 pg (26.0-34.0); Platelet Count 189 K/mcL (140-440); RBC 3.83 M/mcL (4.50-5.90); Red Cell Distribution Width 17.9 % (11.5-14.5)
[2016-07-04 07:13] LABS: ALT/SGPT 9 U/l (0-40); Albumin 2.9 gm/dL (3.2-5.2); Albumin/Globulin Ratio 0.8 (1.0-2.3); Alkaline Phosphatase 65 U/L (39-117); Bilirubin,Direct < 0.2 mg/dL (0.0-0.3); Blood Urea Nitrogen 52 mg/dl (8-23); Gamma Glutamyl Transpeptidase 14 U/L (8-61); Magnesium 2.2 mg/dL (1.6-2.5); Phosphorous 4.1 mg/dL (2.7-4.5); Uric Acid 8.8 mg/dL (2.5-8.0)
[2016-07-04] MEDS: 0.9 % SODIUM CHLORIDE 10 ML SYRINGE IV SCH ×3 (07:33→22:55)
[2016-07-04] MEDS: INSULIN LISPRO 1 UNIT/0.01 ML UNIT SQ SCH ×4 (07:33→20:35)
[2016-07-04 07:34] LABS: Anisocytosis 1+ (NONE SEEN); Eosinophils % (Manual) 1 % (0-7); Lymphocytes % 12 % (15-49); Monocytes % (Manual) 9 % (1-9); Platelet Estimate NORMAL (NORMAL); RBC Morphology ABNORM (NORMAL); Segmented Neutrophils % 78 % (38-78)
[2016-07-04] MEDS: LEVOTHYROXINE 25 MCG TABLET PO SCH (07:42)
[2016-07-04] MEDS: glipiZIDE 5 MG TABLET PO SCH ×2 (07:43→17:41)
[2016-07-04] MEDS: PANTOPRAZOLE 40 MG TABLET PO SCH (07:43)
[2016-07-04] MEDS ORDERED: NOREPINEPHRINE BITARTRATE 16 MG in 0.9 % SODIUM CHLORIDE 234 ML IV PRN (08:04)
[2016-07-04] MEDS ORDERED: DIGOXIN 500 MCG/2 ML AMPUL IV ONE (09:08)
--- NOTE | 2016-07-04 10:44 | Internal Med Progress Note ---
Medical - PN: Subj Patient information: Note initiated : 07/04/16 at 10:38 am Service Date, if different from initiated Date: [] Patient: Guy Hernandez 65 y/o M admitted on 07/02/16 for Wound Infection/ Sepsis, Cellulitis. Chief Complaint: [] Interval history: 07/02- patient admitted with A. fib RVR, severe sepsis acute organ dysfunction and hypotension from lower extremity cellulitis. patient carries a history of diabetic hypertensive/nephrosclerosis with stage III kidney disease and creatinine of 2.7 on presentation. he was referred from wound care clinic for possible wound debridement. Patient carries a history of ischemic cardiomyopathy with EF 25% and recent 4 vessel CABG. patient admitted to ICU after he had a brief episode of neurological changes with increasing confusion and dysarthric speech on medical floor. Negative stat head CT. 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 Patient carries a history of atrial fib flutter. INR was subtherapeutic at 1.6. High risk cardioembolic CVA. Family made aware of the entire situation including possibility of stroke. attempts to transfer to tertiary Center failed due to lack of available beds at [facility]. Patient not a candidate for TPA in light of Coumadin/aspirin and unclear time of onset of symptoms as per son patient has had similar symptoms within intermittent confusion over the last couple of weeks. Wound care, nephrology consult ordered. patient admitted to ICU for close neuro checks/A. fib RVR and severe sepsis management. ABG pH 7.35/41/163 on 8 L oxygen. x-ray chest /stat head CTno acute abnormality. Over 75 minutes critical care time spent in stabilization and care coordination during discussions with physicians. 2/2- patient alert and responding to verbal commands. continues to be critically ill. ventricular rate controlled on amiodarone/metoprolol, blood pressures around 80s. Hypoxic requiring 4 L oxygen however negative chest imaging for infectious process. V/Q mismatch based on ABGs. Given tachycardia hypoxia PE high in differential. full dose anticoagulation on hold due to risk of hemorrhagic conversion and resume if no evidence of acute stroke. worsening leukocytosis at 14,000. potassium at 5.7. Creatinine 2.6. 2/3- continues to be intermittently confused. A. fib with RVR. patient on amiodarone/metoprolol with inadequate response. Digoxin load. continue vasopressors to keep map at goal. Improving renal function. Improving sepsis with downtrending leukocytosis from 14,000-11. Febrile at 101. Family at bedside. Improving urine output. Wound care ongoing-managed by Dr. Rojo. cultures negative so far. INR subtherapeutic at 1.7. MRI could not be done due to sternal wires and stents. repeat head CT in 24 hours. If no evidence of acute CVA Start full dose anticoagulation until INR therapeutic. At this time heparin drip would not be initiated in light of high risk hemorrhagic conversion if there is acute CVA. - Constitutional Vitals: Vital Signs Temp Pulse Resp BP Pulse Ox 100.6 F H 130 H 20 97/67 100 07/04/16 08:00 07/04/16 08:00 07/04/16 08:00 07/04/16 08:00 07/04/16 08:00 Period Temp Pulse Resp BP Sys/Zee Pulse Ox Last 24 Hr 98.9 F-100.7 F 97-136 12-25 82-115/57-83 90-100 Intake and Output 07/03/16 07/04/16 07/04/16 21:59 05:59 13:59 Intake Total 1505 / 1505 109 / 109 Output Total 2800 / 2800 800 / 800 385 / 385 Balance -1295 / -1295 -691 / -691 -385 / -385 Weight 213 lb 11.2 oz Intake & Output: Intake & Output 07/03/16 07/04/16 07/04/16 21:59 05:59 13:59 Intake Total 1505 / 1505 109 / 109 Output Total 2800 / 2800 800 / 800 385 / 385 Balance -1295 / -1295 -691 / -691 -385 / -385 Weight 213 lb 11.2 oz Intake: IV 1145 / 1145 109 / 109 Sodium Chloride 0.9% 1, 1000 / 1000 000 ml @ 50 mls/hr IV . Q20H ALISSA Rx#:[id number] Sodium Chloride 0.9% 250 95 / 95 ml @ 20 mls/hr IV . [id number] ALISSA Rx#:[id number] Levophed 16 mg In Sodium 59 / 59 Chloride 0.9% 234 ml @ 10 MCG/MIN 9.37 mls/hr IV Q24H ALISSA Rx#:[id number] Dextrose 5% in Water 50 50 / 50 50 / 50 ml @ 100 mls/hr IV Q6H ALISSA with Zosyn 2.25 gm Rx #:[id number] Oral 360 / 360 Output: Urine Catheter Amount 2800 / 2800 800 / 800 385 / 385 Exam: patient is restless and jittery Intermittently confused A. fib with RVR rate around 140s Good urine output Hypoxic on 5 L oxygen nxious Medical - PN: Obj Da - Labs CBC & Chem 7: 07/04/16 05:15 07/04/16 05:15 Labs: Abnormal Lab Results 07/04/16 07/04/16 07/04/16 05:15 05:15 04:00 WBC 11.3 H RBC 3.83 L Hgb 10.9 L Hct 34.5 L RDW 17.9 H Lymph % (Auto) Gran # Lymph # [place] # Seg Neutrophils % Lymphocytes % 12 L RBC Morphology Abnorm A Anisocytosis 1+ A PT 20.1 H INR 1.7 H Potassium 5.4 H Carbon Dioxide Anion Gap BUN 52 H Creatinine 2.2 H Glucose Uric Acid 8.8 H Calcium Phosphorus Total Protein Albumin 2.9 L Albumin/Globulin Ratio 0.8 L Urine Glucose (UA) U [place] Prot/Creat Ratio 07/03/16 07/03/16 07/03/16 11:37 11:37 10:59 WBC RBC Hgb Hct RDW Lymph % (Auto) Gran # Lymph # [place] # Seg Neutrophils % Lymphocytes % RBC Morphology Anisocytosis PT INR Potassium 5.7 H Carbon Dioxide 18 L Anion Gap 18.0 H BUN 66 H Creatinine 2.5 H Glucose 138 H Uric Acid Calcium 8.0 L Phosphorus Total Protein Albumin Albumin/Globulin Ratio Urine Glucose (UA) 50 A U [place] Prot/Creat Ratio 0.27 H 07/03/16 07/03/16 07/03/16 10:59 04:00 04:00 WBC 14.0 H RBC 3.41 L Hgb 9.9 L Hct 30.6 L RDW 18.4 H Lymph % (Auto) Gran # Lymph # [place] # Seg Neutrophils % 85 H Lymphocytes % 2 L RBC Morphology Abnorm A Anisocytosis 1+ A PT 21.2 H INR 1.8 H Potassium 5.7 H Carbon Dioxide 20 L Anion Gap BUN 67 H Creatinine 2.6 H Glucose 183 H Uric Acid 9.7 H Calcium 7.7 L Phosphorus 4.8 H Total Protein 5.7 L Albumin 2.6 L Albumin/Globulin Ratio 0.8 L Urine Glucose (UA) U [place] Prot/Creat Ratio 07/02/16 07/02/16 07/02/16 21:10 21:10 21:10 WBC 12.5 H RBC 3.93 L Hgb 11.5 L Hct 35.7 L RDW 18.5 H Lymph % (Auto) 9.2 L Gran # 9.7 H Lymph # 1.1 L [place] # 1.1 H Seg Neutrophils % Lymphocytes % RBC Morphology Anisocytosis PT 19.1 H INR 1.6 H Potassium 5.5 H Carbon Dioxide 21 L Anion Gap BUN 66 H Creatinine 2.5 H Glucose 115 H Uric Acid Calcium 8.5 L Phosphorus Total Protein Albumin Albumin/Globulin Ratio Urine Glucose (UA) U [place] Prot/Creat Ratio Meds: Medications Acetaminophen (Tylenol) 650 mg PO Q4-6HP PRN PRN Reason: PAIN/FEVER > 101 Allopurinol (Zyloprim) 200 mg PO QDAY [facility] Last Admin: 07/03/16 07:55 Dose: 200 mg [facility]) [facility] Last Admin: 07/04/16 06:37 Dose: 200 mg Aspirin (Aspirin) 162 mg PO DAILY [facility] Last Admin: 07/03/16 07:55 Dose: 162 mg Atorvastatin Calcium (Lipitor) 10 mg PO HS [facility] Last Admin: 07/03/16 20:47 Dose: 10 mg Dextrose (Dextrose 50%) 0 ml IV UD PRN PRN Reason: Hypoglycemia Diagnostic Test (Pha) (Accu-Chek) 1 each FS ACHS [facility] Last Admin: 07/04/16 07:32 Dose: 1 each Docusate Sodium (Colace) 100 mg PO BID [facility] Last Admin: 07/03/16 20:46 Dose: 100 mg Folic Acid (Folic Acid) 1 mg PO DAILY [facility] Last Admin: 07/03/16 07:56 Dose: 1 mg Furosemide (Lasix) 40 mg PO QDAY [facility] Last Admin: 07/03/16 07:55 Dose: 40 mg Glipizide (Glucotrol) 5 mg PO BIDAC [facility] Last Admin: 07/04/16 07:43 Dose: 5 mg Guaifenesin/Codeine Phosphate (Robitussin Ac) 10 ml PO Q4HP PRN PRN Reason: Cough Heparin Sodium (Porcine) (Heparin) 5,000 unit SQ Q12 [facility] Last Admin: 07/03/16 20:46 Dose: 5,000 unit Hydromorphone HCl (Dilaudid) 0 mg IV Q4HP PRN PRN Reason: Pain Last Admin: 07/04/16 07:23 Dose: 0.5 mg Magnesium Sulfate (Magnesium Sulfate) 2 gm in 50 mls @ 50 mls/hr IV UD PRN PRN Reason: MG = or < 1.7 Sodium Chloride (Sodium Chloride 0.9%) 1,000 mls @ 50 mls/hr IV .Q20H [facility] Stop: 07/05/16 08:23 Last Admin: 07/03/16 18:10 Dose: 50 mls/hr Acetaminophen (Ofirmev) 1,000 mg in 100 mls @ 200 mls/hr IV Q6HP PRN PRN Reason: PAIN/FEVER > 101 Last Infusion: 07/03/16 01:16 Dose: Infused Piperacillin Sod/Tazobactam (Sod 2.25 gm/ Dextrose) 50 mls @ 100 mls/hr IV Q6H [facility] Last Admin: 07/04/16 07:46 Dose: 100 mls/hr Thiamine HCl 100 mg/ Sodium (Chloride) 51 mls @ 50 mls/hr IV DAILY [facility] Stop: 07/05/16 10:02 Last Admin: 07/03/16 10:08 Dose: 50 mls/hr Sodium Chloride (Sodium Chloride 0.9%) 250 mls @ 20 mls/hr IV .[id number] [facility] Last Admin: 07/03/16 21:45 Dose: Not Given Sodium Chloride (Sodium Chloride 0.9%) 250 mls @ 20 mls/hr IV .[id number] [facility] Last Admin: 07/03/16 21:45 Dose: Not Given Norepinephrine Bitartrate 16 (mg/ Sodium Chloride) 250 mls @ 9.37 mls/hr IV Q24HP PRN; Protocol; 10 MCG/MIN PRN Reason: TITRATE TO KEEP MAP > 60 Insulin Human Lispro (Humalog) 0 unit SQ ACHS [facility] PRN Reason: Protocol Last Admin: 07/04/16 07:33 Dose: Not Given Iron Carb/Multivit/Trail/Folic Acid (Multivitamin W/Minerals) 1 tab PO DAILY [facility] Last Admin: 07/03/16 08:01 Dose: 1 tab Levothyroxine Sodium (Synthroid) 25 mcg PO QAMAC [facility] Last Admin: 07/04/16 07:42 Dose: 25 mcg Metoprolol Tartrate (Lopressor) 75 mg PO BID [facility] Last Admin: 07/04/16 06:37 Dose: 75 mg Mupirocin (Bactroban Crm 2%) 1 gm TOPICAL BID [facility] Last Admin: 07/03/16 20:44 Dose: Not Given Ondansetron HCl (Zofran) 4 mg IV Q4-6HP PRN PRN Reason: Nausea And Vomiting Pantoprazole Sodium (Protonix) 40 mg PO QAMAC [facility] Last Admin: 07/04/16 07:43 Dose: 40 mg Budesonide/Formoterol Fumarate [Symbicort] 160/4.5 Mcg Inhaler 2 dose INH Q12H [facility] Last Admin: 07/03/16 21:22 Dose: Not Given Senna/Docusate Sodium (Senna Plus Tablet) 1 tab PO HS [facility] Last Admin: 07/03/16 20:47 Dose: 1 tab Sodium Chloride (Saline Flush) 10 ml IV Q8 [facility] Last Admin: 07/04/16 07:33 Dose: 10 ml Timolol Maleate (Timoptic 0.5% Ophth Drops) 1 gtt OU DAILY [facility] Last Admin: 07/03/16 10:09 Dose: Not Given Trazodone HCl (Desyrel) 50 mg PO HSP PRN PRN Reason: Insomnia Last Admin: 07/02/16 23:39 Dose: 50 mg Medical - PN: A/P - Time Spent With Patient Total time spent is greater than 50% in coordination of care (as documented) at patient's floor/unit and/or counseling patient: Greater than 35 minutes (critical care time) (1) Septic shock Status: Acute Assessment and plan: * Septic shock with multiorgan dysfunction. secondary lower extremity cellulitis. Cultures negative so far. On pressors. continue antibiotic coverage and de-escalate based on cultures. Critically ill managed in ICU. [place] score over 20 * A. fib RVR on amiodarone/metoprolol-digoxin load.. continue rate control measures * lower extremity cellulitis-on Zosyn/vancomycin. Wound care consulted * New onset mental status changes rule out CVA in light of sub-therapeutic INR and high risk cardiac embolic CVA secondary to A. fib flutter. Avoid full dose and decortication until MRI negative * Hypoxia with tachycardia -very high risk PE based on Wells score. we'll start full dose and accommodation if MRI negative to avoid hemorrhagic conversion with early anticoagulation. * acute and chronic kidney disease-nephrology consulted * Hyperkalemia-nephrology on board * History of DM type II-prandial insulin/glipizide * ischemia ischemic cardiomyopathy EF 25% status post 4 vessel CABG continue metoprolol/lisinopril/amiodarone/ * history of gout on allopurinol * hypothyroidism on thyroxine * Full CODE STATUS Plan * digoxin load * pressors and antibiotics/crystalloids * repeat head CT in 24 hours for CVA evaluation * V/Q scan today * Start full dose anticoagulation until INR therapeutic if no evidence of acute CVA on head CT in 24 hours(high-risk PE in light of negative chest imaging) * Pre-existing medical condition management as above * High risk mortality based on [place] II score critical care time over 45 minutes spent on above Current Visit: Yes Medical - PN: Qual - VTE Deep Vein Thrombosis/Pulmonary Embolism Present on Admission: No
[2016-07-04] MEDS: DEXTROSE 50% 50 ML VIAL IV PRN (11:01)
[2016-07-04] MEDS ORDERED: 0.9 % SODIUM CHLORIDE 10 ML SYRINGE IV PRN (11:50)
--- NOTE | 2016-07-04 12:09 | XRay Report ---
CLINICAL INFORMATION: PICC line placement TECHNIQUE: AP portable semiupright chest x-ray COMPARISON: 07/02/2016 FINDINGS: Right-sided PICC line with its tip in the superior vena cava. Lungs remain clear. Heart size and vascularity are normal. IMPRESSION: Right-sided PICC line in the superior vena cava. Interpreted and Authenticated by: Pramod Lucio 07/04/16
[2016-07-04] MEDS: ALLOPURINOL 100 MG TABLET PO SCH (12:22)
[2016-07-04] MEDS: ASPIRIN 81 MG TAB.CHEW PO SCH (12:22)
[2016-07-04] MEDS: DOCUSATE SODIUM 100 MG CAPSULE PO SCH ×2 (12:22→20:37)
[2016-07-04] MEDS: FUROSEMIDE 40 MG TABLET PO SCH (12:22)
[2016-07-04] MEDS: HEPARIN 5,000 UNIT/ML VIAL SQ SCH ×2 (12:22→20:34)
[2016-07-04] MEDS: THIAMINE 100 MG in 0.9 % SODIUM CHLORIDE 50 ML IV SCH (12:23)
[2016-07-04] MEDS: MULTIVIT,THER IRON,CA,FA & MIN 1 TABLET PO SCH (12:23)
[2016-07-04] MEDS: MUPIROCIN CRM 2% 15 GM TUBE TOPICAL SCH ×2 (12:24→20:36)
[2016-07-04] MEDS: FOLIC ACID 1 MG TABLET PO SCH (12:24)
[2016-07-04] MEDS: Budesonide/Formoterol Fumarate [Symbicort] 160/4.5 mcg Inhaler INH SCH ×2 (12:25→20:37)
[2016-07-04] MEDS: TIMOLOL 0.5% OPHTH DROPS BOTTLE 5ML OU SCH (12:25)
[2016-07-04] MEDS: 0.9 % SODIUM CHLORIDE 250 ML IV SCH ×4 (12:53→21:43)
[2016-07-04] MEDS ORDERED: WARFARIN 3 MG TABLET PO ONE (14:00)
--- NOTE | 2016-07-04 14:22 | Nephrology Progress Note ---
Subjective Patient information: Note initiated : 07/04/16 at 2:20 pm Service Date, if different from initiated Date: [] Patient: Guy Hernandez 65 y/o M admitted on 07/02/16 for Wound Infection/ Sepsis, Cellulitis. Chief Complaint: [Pt confused when seen this am Principal diagnosis: Sepsis Interval history: confused intermittently still has fever, still HR Is not controlled off levophed this am good urinary output, renal function is improving Pertinent ROS: unable as pt was confused this am Objective - Vital Signs Vital signs: Vital Signs Temp Pulse Resp BP Pulse Ox 07/04/16 12:00 99.4 F 86 17 90/57 100 07/04/16 08:00 100.6 F H 130 H 20 97/67 100 07/04/16 07:00 100.7 F H 136 H 20 102/68 98 07/04/16 06:00 120 H 92/77 98 07/04/16 05:00 100.4 F H 132 H 25 H 108/83 07/04/16 04:00 100.2 F H 132 H 24 105/70 95 07/04/16 03:00 100.2 F H 132 H 25 H 104/73 96 07/04/16 02:00 100.3 F H 136 H 15 82/58 100 07/04/16 01:00 100.3 F H 136 H 14 95/63 98 07/04/16 00:00 100.1 F H 130 H 12 115/74 07/03/16 23:00 99.7 F H 122 H 15 104/61 98 07/03/16 22:00 133 H 17 85/59 98 07/03/16 21:00 118 H 16 96/66 97 07/03/16 20:58 98 07/03/16 20:00 100.1 F H 123 H 14 96/64 90 07/03/16 18:00 106 H 07/03/16 17:00 99.2 F 110 H 18 94/57 100 07/03/16 16:00 99.5 F 112 H 14 105/69 100 07/03/16 15:00 108 H 16 112/67 92 Intake and Output 07/04/16 07/04/16 07/04/16 05:59 13:59 21:59 Intake Total 109 / 109 290 / 290 Output Total 800 / 800 385 / 385 Balance -691 / -691 - Intake: IV 109 / 109 50 / 50 Levophed 16 mg In Sodium 59 / 59 Chloride 0.9% 234 ml @ 10 MCG/MIN 9.37 mls/hr IV Q24H ALISSA Rx#:[id number] Dextrose 5% in Water 50 50 / 50 50 / 50 ml @ 100 mls/hr IV Q6H ALISSA with Zosyn 2.25 gm Rx #:[id number] Oral 240 / 240 Output: Urine Catheter Amount 800 / 800 385 / 385 Intake & Output: Intake & Output 07/04/16 07/04/16 07/04/16 05:59 13:59 21:59 Intake Total 109 / 109 290 / 290 Output Total 800 / 800 385 / 385 Balance -691 / -691 - Intake: IV 109 / 109 50 / 50 Levophed 16 mg In Sodium 59 / 59 Chloride 0.9% 234 ml @ 10 MCG/MIN 9.37 mls/hr IV Q24H ALISSA Rx#:[id number] Dextrose 5% in Water 50 50 / 50 50 / 50 ml @ 100 mls/hr IV Q6H ALISSA with Zosyn 2.25 gm Rx #:[id number] Oral 240 / 240 Output: Urine Catheter Amount 800 / 800 385 / 385 - General Appearance General appearance: appears started age, chronically ill EENT: mucous membranes moist Neck: no JVD Respiratory: clear Cardiology: no rub, edema (LE wrapped in dressing, has bilateral LE wounds ), irregular rhythm Gastrointestinal: no tenderness, no guarding Neurologic: confused Musculoskeletal: no erythema, no cyanosis - Lab 07/04/16 05:15 07/04/16 05:15 Most recent lab results Calcium 8.6 mg/dl (8.6-10.4) 07/04/16 05:15 Phosphorus 4.1 mg/dL (2.7-4.5) 07/04/16 05:15 Magnesium 2.2 mg/dL (1.6-2.5) 07/04/16 05:15 Assessment and Plan (1) Acute on chronic renal failure s.creat is 2.2, from 2.7-2.5, improving K is down to 5.4 UA with proteinuria but no other abnormalities would continue to hold lisinopril would continue lasix at 40mg po daily please keep MAP of more than 65mmHg avoid nephrotoxic medications monitor renal function, I/O Will follow along Status: Acute
[2016-07-04] MEDS ORDERED: VANCOMYCIN 1,000 MG in 0.9 % SODIUM CHLORIDE 250 ML IV ONE (15:00)
--- NOTE | 2016-07-04 16:05 | General Surgery Progress Note ---
Subjective Patient reports: other (I saw this patient with nursing staff. His wounds were examined. Local wound care is ongoing. Continues to be confused intermittently. Off vasopressors. Renal functions and urine output is improving.) Narrative: Note initiated : 07/04/16 at 4:03 pm Service Date, if different from initiated Date: [] Patient: Guy Hernandez 65 y/o M admitted on 07/02/16 for Wound Infection/ Sepsis, Cellulitis. Chief Complaint: [] Objective Temp Pulse Resp BP Pulse Ox 99.1 F 87 20 107/75 100 07/04/16 15:00 07/04/16 15:00 07/04/16 15:00 07/04/16 15:00 07/04/16 15:00 see detailed notes of internal medicine and nephrology. No acute changes in wounds of both legs and left foot. - Additional Data Intake & Output - Last 24 hours: Intake & Output 07/02/16 07/03/16 07/04/16 07/05/16 05:59 05:59 05:59 05:59 Intake Total 520 / 1820 2635 / 2635 290 / 290 Output Total 381 / 381 4050 / 4050 385 / 385 Balance 139 / 1439 -1415 / -1415 -95 / -95 Weight 214 lb 213 lb 11.2 oz - Labs 07/04/16 05:15 07/04/16 05:15 Diabetes panel 07/04/16 Range/Units 05:15 Sodium 137 (133-145) mmol/L Potassium 5.4 H (3.3-5.1) mmol/L Chloride 99 (96-108) mmol/L Carbon Dioxide 24 (22-30) mmol/L BUN 52 H (8-23) mg/dl Creatinine 2.2 H (0.7-1.2) mg/dl Glucose 96 (70-105) mg/dL Calcium 8.6 (8.6-10.4) mg/dl AST 11 (0-37) U/l ALT 9 (0-40) U/l Alkaline Phosphatase 65 (39-117) U/L Total Protein 6.6 (5.9-8.4) gm/dL Albumin 2.9 L (3.2-5.2) gm/dL Triglycerides 71 (<150) mg/dl Calcium panel 07/04/16 Range/Units 05:15 Calcium 8.6 (8.6-10.4) mg/dl Phosphorus 4.1 (2.7-4.5) mg/dL Albumin 2.9 L (3.2-5.2) gm/dL Pituitary panel 07/04/16 Range/Units 05:15 Sodium 137 (133-145) mmol/L Potassium 5.4 H (3.3-5.1) mmol/L Chloride 99 (96-108) mmol/L Carbon Dioxide 24 (22-30) mmol/L BUN 52 H (8-23) mg/dl Creatinine 2.2 H (0.7-1.2) mg/dl Glucose 96 (70-105) mg/dL Calcium 8.6 (8.6-10.4) mg/dl Adrenal panel 07/04/16 Range/Units 05:15 Sodium 137 (133-145) mmol/L Potassium 5.4 H (3.3-5.1) mmol/L Chloride 99 (96-108) mmol/L Carbon Dioxide 24 (22-30) mmol/L BUN 52 H (8-23) mg/dl Creatinine 2.2 H (0.7-1.2) mg/dl Glucose 96 (70-105) mg/dL Calcium 8.6 (8.6-10.4) mg/dl Total Bilirubin 0.3 (0.0-1.0) mg/dL AST 11 (0-37) U/l ALT 9 (0-40) U/l Alkaline Phosphatase 65 (39-117) U/L Total Protein 6.6 (5.9-8.4) gm/dL Albumin 2.9 L (3.2-5.2) gm/dL Medical - PN: A/P - Time Spent With Patient Total time spent is greater than 50% in coordination of care (as documented) at patient's floor/unit and/or counseling patient: patient is undergoing appropriate medical management and stabilization off his overall condition. Wound care is ongoing. Nothing more to add at this time. following patient. 15 - 24 minutes (1) Cellulitis Problem details: complicated skin and skin structure infection of both legs anterior surface from the knee up to the ankles and dorsal surface Ankle brachial indices were done in the past 0.6 and 0.7 respectively right and left lower extremities. At this time, patient has a low flow syndrome and hypotension. He is on vasopressors and gradually improving. Status: Acute Current Visit: Yes
[2016-07-04] MEDS: 0.9 % SODIUM CHLORIDE 1,000 ML IV SCH ×2 (16:32→20:47)
[2016-07-04] MEDS: ATORVASTATIN 20 MG TABLET PO SCH (20:33)
[2016-07-04] MEDS: SENNOSIDES/DOCUSATE SODIUM 1 TAB TABLET PO SCH (20:38)
[2016-07-05] MEDS: HYDROmorphone 2 MG/ML SYRINGE IV PRN ×5 (00:13→23:09)
[2016-07-05] MEDS: PIPERACILLIN SODIUM/TAZOBACTAM 2.25 GM in DEXTROSE 5% IN WATER 50 ML IV SCH ×4 (04:53→23:07)
[2016-07-05 08:07] LABS: Mean Cell Volume 88.7 fL (80.0-100.0); Mean Corpuscular HGB Conc 32.6 g/dL (31.0-36.0); Mean Corpuscular Hemoglobin 28.9 pg (26.0-34.0); Platelet Count 195 K/mcL (140-440); RBC 3.56 M/mcL (4.50-5.90); Red Cell Distribution Width 17.2 % (11.5-14.5)
[2016-07-05] MEDS: DEXTROSE 50% 50 ML VIAL IV PRN (08:07)
[2016-07-05 08:08] LABS: Basophils # (Auto) 0.1 K/mcL (0.0-0.3); Basophils % (Auto) 0.6 % (0.0-2.0); Eosinophils # (Auto) 0.3 K/mcL (0.0-0.7); Eosinophils % (Auto) 2.3 % (0.0-7.0); Granulocytes % (Auto) 78.9 % (38.0-78.0); Lymphocytes # (Auto) 1.1 K/mcL (1.5-4.8); Monocytes # (Auto) 1.2 K/mcL (0.1-0.9); Monocytes % (Auto) 9.2 % (1.0-9.0)
[2016-07-05] MEDS: 0.9 % SODIUM CHLORIDE 10 ML SYRINGE IV SCH ×2 (08:10→14:05)
[2016-07-05] MEDS: PANTOPRAZOLE 40 MG TABLET PO SCH (08:10)
[2016-07-05] MEDS: AMIODARONE HCL 200 MG TABLET PO SCH (08:10)
[2016-07-05] MEDS: LEVOTHYROXINE 25 MCG TABLET PO SCH (08:10)
[2016-07-05] MEDS: glipiZIDE 5 MG TABLET PO SCH (08:10)
[2016-07-05 08:23] LABS: ALT/SGPT 9 U/l (0-40); Albumin 2.2 gm/dL (3.2-5.2); Albumin/Globulin Ratio 0.6 (1.0-2.3); Alkaline Phosphatase 55 U/L (39-117); Bilirubin,Direct < 0.2 mg/dL (0.0-0.3); Blood Urea Nitrogen 48 mg/dl (8-23); Gamma Glutamyl Transpeptidase 13 U/L (8-61); Phosphorous 4.2 mg/dL (2.7-4.5); Uric Acid 8.6 mg/dL (2.5-8.0)
--- NOTE | 2016-07-05 10:02 | Cat Scan Report ---
CLINICAL INFORMATION: Possible stroke. Assess interval change. COMPARISON: Previous examination dated 07/02/2016 TECHNIQUE: Axial noncontrast-enhanced images through the brain. FINDINGS: No acute intracranial hemorrhage. No intra-axial hematoma. No focal intra-axial attenuation abnormality or localized mass effect. No midline shift. There is cerebral atrophy with ventriculomegaly. This is unchanged. Brainstem and cerebellum are negative. No extra-axial, intracranial abnormality. No subdural or subarachnoid hemorrhage. Basilar cisterns are normal. Air-fluid level in the right maxillary sinus is unchanged IMPRESSION: 1. Ventriculomegaly and cerebral atrophy. 2. No acute abnormality. No interval change since 07/02/2016 Interpreted and Authenticated by: Pramod Lucio 07/05/16
[2016-07-05] MEDS ORDERED: 0.9 % SODIUM CHLORIDE 500 ML IV ONE (11:24)
[2016-07-05] MEDS ORDERED: VANCOMYCIN PER PHARMACY IV SCH (11:30)
--- NOTE | 2016-07-05 11:39 | General Surgery Progress Note ---
Subjective Narrative: Note initiated : 07/05/16 at 11:36 am Service Date, if different from initiated Date: [] Patient: Guy Hernandez 65 y/o M admitted on 07/02/16 for Wound Infection/ Sepsis, Cellulitis. Chief Complaint: []Wound care progress note. patient seen and progress reviewed with the nursing staff. He had low blood sugars this morning requiring supplemental replacement and fluid bolus. Leg wounds are stable and being dressed twice a day. Upon stabilization of his condition, he will likely be transferred to a rehabilitation facility Objective Temp Pulse Resp BP Pulse Ox 99.6 F 90 18 105/55 97 07/05/16 11:00 07/05/16 11:00 07/05/16 11:00 07/05/16 11:00 07/05/16 11:00 MAXIMUM [id number] no tachycardia. Hemodynamically stable. Lower extremity physical therapy ongoing and wound care dressings are being done on schedule. - Additional Data Intake & Output - Last 24 hours: Intake & Output 07/03/16 07/04/16 07/05/16 07/06/16 05:59 05:59 05:59 05:59 Intake Total 520 / 1820 2635 / 2635 2120 / 2120 100 / 100 Output Total 381 / 381 4050 / 4050 3830 / 3830 565 / 565 Balance 139 / 1439 -1415 / -1415 -1710 / -1710 -465 / -465 Weight 214 lb 213 lb 11.2 oz 204 lb 4.8 oz - Labs 07/05/16 07:05 07/05/16 07:05 Diabetes panel 07/05/16 07/05/16 Range/Units 03:40 07:05 Sodium Not Reportable 138 Potassium Not Reportable 4.4 Chloride Not Reportable 101 Carbon Dioxide Not Reportable 23 BUN Not Reportable 48 H Creatinine Not Reportable 2.0 H Glucose TNP 46 L Calcium Not Reportable 8.5 L AST Not Reportable 21 ALT Not Reportable 9 Alkaline Phosphatase Not Reportable 55 Total Protein Not Reportable 6.0 Albumin Not Reportable 2.2 L Triglycerides Not Reportable 69 Calcium panel 07/05/16 07/05/16 Range/Units 03:40 07:05 Calcium Not Reportable 8.5 L Phosphorus Not Reportable 4.2 Albumin Not Reportable 2.2 L Pituitary panel 07/05/16 07/05/16 Range/Units 03:40 07:05 Sodium Not Reportable 138 Potassium Not Reportable 4.4 Chloride Not Reportable 101 Carbon Dioxide Not Reportable 23 BUN Not Reportable 48 H Creatinine Not Reportable 2.0 H Glucose TNP 46 L Calcium Not Reportable 8.5 L Adrenal panel 07/05/16 07/05/16 Range/Units 03:40 07:05 Sodium Not Reportable 138 Potassium Not Reportable 4.4 Chloride Not Reportable 101 Carbon Dioxide Not Reportable 23 BUN Not Reportable 48 H Creatinine Not Reportable 2.0 H Glucose TNP 46 L Calcium Not Reportable 8.5 L Total Bilirubin Not Reportable 0.3 AST Not Reportable 21 ALT Not Reportable 9 Alkaline Phosphatase Not Reportable 55 Total Protein Not Reportable 6.0 Albumin Not Reportable 2.2 L Medical - PN: A/P - Time Spent With Patient Total time spent is greater than 50% in coordination of care (as documented) at patient's floor/unit and/or counseling patient: No acute changes from wound care point. Continue current wound care management. less than 15 minutes (1) Cellulitis Problem details: complicated skin and skin structure infection of both legs anterior surface from the knee up to the ankles and dorsal surface Ankle brachial indices were done in the past 0.6 and 0.7 respectively right and left lower extremities. At this time, patient has a low flow syndrome and hypotension. He is on vasopressors and gradually improving. Status: Acute Current Visit: Yes
[2016-07-05] MEDS: INSULIN LISPRO 1 UNIT/0.01 ML UNIT SQ SCH ×4 (12:43→20:37)
[2016-07-05] MEDS: ASPIRIN 81 MG TAB.CHEW PO SCH (12:47)
[2016-07-05] MEDS: MUPIROCIN CRM 2% 15 GM TUBE TOPICAL SCH ×2 (12:48→22:13)
[2016-07-05] MEDS: DOCUSATE SODIUM 100 MG CAPSULE PO SCH ×2 (12:48→20:40)
[2016-07-05] MEDS: FOLIC ACID 1 MG TABLET PO SCH (12:51)
[2016-07-05] MEDS: METOPROLOL TARTRATE 25 MG TABLET PO SCH ×2 (12:52→20:39)
[2016-07-05] MEDS: HEPARIN 5,000 UNIT/ML VIAL SQ SCH (12:52)
[2016-07-05] MEDS: THIAMINE 100 MG in 0.9 % SODIUM CHLORIDE 50 ML IV SCH (12:53)
[2016-07-05] MEDS: MULTIVIT,THER IRON,CA,FA & MIN 1 TABLET PO SCH (12:53)
[2016-07-05] MEDS: Budesonide/Formoterol Fumarate [Symbicort] 160/4.5 mcg Inhaler INH SCH ×2 (12:53→22:14)
[2016-07-05] MEDS: TIMOLOL 0.5% OPHTH DROPS BOTTLE 5ML OU SCH (12:54)
[2016-07-05] MEDS: ALLOPURINOL 100 MG TABLET PO SCH (12:54)
[2016-07-05] MEDS: 0.9 % SODIUM CHLORIDE 250 ML IV SCH ×2 (13:07→13:10)
--- NOTE | 2016-07-05 13:25 | Internal Med Progress Note ---
Medical - PN: Subj Patient information: Note initiated : 07/05/16 at 1:22 pm Service Date, if different from initiated Date: [] Patient: Guy Hernandez 65 y/o M admitted on 07/02/16 for Wound Infection/ Sepsis, Cellulitis. Chief Complaint: [] Interval history: Patient seen examined, overnight events noted. The patient has been admitted for sepsis due to lower extremity cellutlitis, So far cultures have been negative. the patient was hypoxic on presentation, with high AA Gradient, and plan was to get a VQ scan. The patient unfortunately did not get a VQ scan, he is saturating 96-99 percent on room air, with HR in 90's. He is on coumadin with INR of 2.0 today. At this time, I do not see much utility of getting a VQ scan , given that the patient needs to be on anticoagulation for life, is not hypoxic any more. The treatment plan would not change. Will consider repeat imaging if indicated. The patient wbc count is going up again, he remains febrile. he continues to be on vancomycin and zosyn, which is concerning He is being followed by wound care who advised antibiotic ointment and bid dressing changes. I reviewed his lower extremity wounds ad the patient has significant cellultis of both legs, soem swelling in both feet, no skip lesions. There was some concern for AMS/ and CVA, CT head this AM was negative. Pertinent ROS: Denies headache, dizziness Denies chest pain, palpitations Denies cough or shortness of breath Denies abdominal pain, nausea or vomiting. Significant pain in the lower extremities. - Constitutional Vitals: Vital Signs Temp Pulse Resp BP Pulse Ox 100.0 F H 90 12 113/64 95 07/05/16 12:00 07/05/16 11:00 07/05/16 12:00 07/05/16 12:00 07/05/16 12:00 Period Temp Pulse Resp BP Sys/Zee Pulse Ox Last 24 Hr 98.2 F-100.4 F 78-111 10-20 84-125/46-89 90-100 Intake and Output 07/04/16 07/05/16 07/05/16 21:59 05:59 13:59 Intake Total 1730 / 1730 50 / 50 100 / 100 Output Total 2185 / 2185 760 / 760 565 / 565 Balance -455 / -455 -710 / -710 -465 / -465 Weight 204 lb 4.8 oz Intake & Output: Intake & Output 07/04/16 07/05/16 07/05/16 21:59 05:59 13:59 Intake Total 1730 / 1730 50 / 50 100 / 100 Output Total 2185 / 2185 760 / 760 565 / 565 Balance -455 / -455 -710 / -710 -465 / -465 Weight 204 lb 4.8 oz Intake: IV 1050 / 1050 50 / 50 50 / 50 Sodium Chloride 0.9% 1, 1000 / 1000 000 ml @ 50 mls/hr IV . Q20H ALISSA Rx#:[id number] Dextrose 5% in Water 50 50 / 50 50 / 50 50 / 50 ml @ 100 mls/hr IV Q6H ALISSA with Zosyn 2.25 gm Rx #:[id number] Oral 680 / 680 50 / 50 Output: Urine Catheter Amount 2185 / 2185 760 / 760 565 / 565 Other: Meal Dinner Breakfast Percent of Meal Consumed 50% 25% Feeding Ability Assist with Tray Set Up # Bowel Movements 1 Exam: Constitutional; Afebrile, cooperative, alert, not in distress. Eyes- No icterus, Pupils equal, reactive, No periorbital swelling Ears- Ext ear normal, hearing normal to conversation. Neck- Midline trachea, supple Respiratory system: Air Entry equal on both sides, No crackles or wheezing, no rhonchi. CVS- Rate regular, rhythm irregularily irregular, S1,S2 heard, no gallop, no rub. Abdomen- Soft nontender abdomen, no organomegaly, no tenderness, no guarding or rigidity, [employer]- AOO, moving all extremities, no focal deficit noted. Extremities, greta lower extremity cellutlitis, left worse than right, skin on the left leg has been denuded. Medical - PN: Obj Da - Labs CBC & Chem 7: 07/05/16 07:05 07/05/16 07:05 Labs: Abnormal Lab Results 07/05/16 07/05/16 07/05/16 07:05 07:05 07:05 WBC 12.7 H RBC 3.56 L Hgb 10.3 L Hct 31.6 L RDW 17.2 H Gran % 78.9 H Lymph % (Auto) 9.0 L [place] % (Auto) 9.2 H Gran # 10.0 H Lymph # 1.1 L [place] # 1.2 H Seg Neutrophils % Lymphocytes % RBC Morphology Anisocytosis PT 23.3 H INR 2.0 H Potassium Carbon Dioxide Anion Gap BUN 48 H Creatinine 2.0 H Glucose 46 L Uric Acid 8.6 H Calcium 8.5 L Phosphorus Total Protein Albumin 2.2 L Globulin 3.8 H Albumin/Globulin Ratio 0.6 L Urine Glucose (UA) U [place] Prot/Creat Ratio 07/04/16 07/04/16 07/04/16 05:15 05:15 04:00 WBC 11.3 H RBC 3.83 L Hgb 10.9 L Hct 34.5 L RDW 17.9 H Gran % Lymph % (Auto) [place] % (Auto) Gran # Lymph # [place] # Seg Neutrophils % Lymphocytes % 12 L RBC Morphology Abnorm A Anisocytosis 1+ A PT 20.1 H INR 1.7 H Potassium 5.4 H Carbon Dioxide Anion Gap BUN 52 H Creatinine 2.2 H Glucose Uric Acid 8.8 H Calcium Phosphorus Total Protein Albumin 2.9 L Globulin Albumin/Globulin Ratio 0.8 L Urine Glucose (UA) U [place] Prot/Creat Ratio 07/03/16 07/03/16 07/03/16 11:37 11:37 10:59 WBC RBC Hgb Hct RDW Gran % Lymph % (Auto) [place] % (Auto) Gran # Lymph # [place] # Seg Neutrophils % Lymphocytes % RBC Morphology Anisocytosis PT INR Potassium 5.7 H Carbon Dioxide 18 L Anion Gap 18.0 H BUN 66 H Creatinine 2.5 H Glucose 138 H Uric Acid Calcium 8.0 L Phosphorus Total Protein Albumin Globulin Albumin/Globulin Ratio Urine Glucose (UA) 50 A U [place] Prot/Creat Ratio 0.27 H 07/03/16 07/03/16 07/03/16 10:59 04:00 04:00 WBC 14.0 H RBC 3.41 L Hgb 9.9 L Hct 30.6 L RDW 18.4 H Gran % Lymph % (Auto) [place] % (Auto) Gran # Lymph # [place] # Seg Neutrophils % 85 H Lymphocytes % 2 L RBC Morphology Abnorm A Anisocytosis 1+ A PT 21.2 H INR 1.8 H Potassium 5.7 H Carbon Dioxide 20 L Anion Gap BUN 67 H Creatinine 2.6 H Glucose 183 H Uric Acid 9.7 H Calcium 7.7 L Phosphorus 4.8 H Total Protein 5.7 L Albumin 2.6 L Globulin Albumin/Globulin Ratio 0.8 L Urine Glucose (UA) U [place] Prot/Creat Ratio 07/02/16 07/02/16 07/02/16 21:10 21:10 21:10 WBC 12.5 H RBC 3.93 L Hgb 11.5 L Hct 35.7 L RDW 18.5 H Gran % Lymph % (Auto) 9.2 L [place] % (Auto) Gran # 9.7 H Lymph # 1.1 L [place] # 1.1 H Seg Neutrophils % Lymphocytes % RBC Morphology Anisocytosis PT 19.1 H INR 1.6 H Potassium 5.5 H Carbon Dioxide 21 L Anion Gap BUN 66 H Creatinine 2.5 H Glucose 115 H Uric Acid Calcium 8.5 L Phosphorus Total Protein Albumin Globulin Albumin/Globulin Ratio Urine Glucose (UA) U [place] Prot/Creat Ratio Meds: Medications Acetaminophen (Tylenol) 650 mg PO Q4-6HP PRN PRN Reason: PAIN/FEVER > 101 Allopurinol (Zyloprim) 200 mg PO QDAY [facility] Last Admin: 07/05/16 12:54 Dose: 200 mg [facility] Admin: 07/05/16 08:10 Dose: 200 mg Aspirin (Aspirin) 162 mg PO DAILY [facility] Last Admin: 07/05/16 12:47 Dose: 162 mg Atorvastatin Calcium (Lipitor) 10 mg PO HS [facility] Last Admin: 07/04/16 20:33 Dose: 10 mg Dextrose (Dextrose 50%) 0 ml IV UD PRN PRN Reason: Hypoglycemia Last Admin: 07/05/16 08:07 Dose: 50 ml Diagnostic Test (Pha) (Accu-Chek) 1 each FS ACHS [facility] Last Admin: 07/05/16 08:09 Dose: 1 each Docusate Sodium (Colace) 100 mg PO BID [facility] Last Admin: 07/05/16 12:48 Dose: 100 mg Folic Acid (Folic Acid) 1 mg PO DAILY [facility] Last Admin: 07/05/16 12:51 Dose: 1 mg Guaifenesin/Codeine Phosphate (Robitussin Ac) 10 ml PO Q4HP PRN PRN Reason: Cough Heparin Sodium (Porcine) (Heparin) 5,000 unit SQ Q12 [facility] Last Admin: 07/05/16 12:52 Dose: 5,000 unit Heparin Sodium (Porcine) (Heparin Flush) 2 ml IV Q12 [facility] Last Admin: 07/05/16 12:53 Dose: 2 ml Hydromorphone HCl (Dilaudid) 0 mg IV Q4HP PRN PRN Reason: Pain Last Admin: 07/05/16 09:25 Dose: 0.5 mg Magnesium Sulfate (Magnesium Sulfate) 2 gm in 50 mls @ 50 mls/hr IV UD PRN PRN Reason: MG = or < 1.7 Acetaminophen (Ofirmev) 1,000 mg in 100 mls @ 200 mls/hr IV Q6HP PRN PRN Reason: PAIN/FEVER > 101 Last Infusion: 07/03/16 01:16 Dose: Infused Piperacillin Sod/Tazobactam (Sod 2.25 gm/ Dextrose) 50 mls @ 100 mls/hr IV Q6H [facility] Last Admin: 07/05/16 12:30 Dose: 100 mls/hr Sodium Chloride (Sodium Chloride 0.9%) 250 mls @ 20 mls/hr IV .[id number] [facility] Last Admin: 07/05/16 13:07 Dose: 20 mls/hr Sodium Chloride (Sodium Chloride 0.9%) 250 mls @ 20 mls/hr IV .[id number] [facility] Last Admin: 07/05/16 13:10 Dose: Not Given Norepinephrine Bitartrate 16 (mg/ Sodium Chloride) 250 mls @ 9.37 mls/hr IV Q24HP PRN; Protocol; 10 MCG/MIN PRN Reason: TITRATE TO KEEP MAP > 60 Clindamycin Phosphate 600 mg/ (Dextrose) 54 mls @ 100 mls/hr IV Q8H [facility] Insulin Human Lispro (Humalog) 0 unit SQ ACHS ALISSA PRN Reason: Protocol Last Admin: 07/05/16 12:47 Dose: Not Given Iron Carb/Multivit/Accountant Tax/Folic Acid (Multivitamin W/Minerals) 1 tab PO DAILY [facility] Last Admin: 07/05/16 12:53 Dose: 1 tab Levothyroxine Sodium (Synthroid) 25 mcg PO QAMAC [facility] Last Admin: 07/05/16 08:10 Dose: 25 mcg Metoprolol Tartrate (Lopressor) 75 mg PO BID [facility] Last Admin: 07/05/16 12:52 Dose: 75 mg Mupirocin (Bactroban Crm 2%) 1 gm TOPICAL BID [facility] Last Admin: 07/05/16 12:48 Dose: 1 gm Ondansetron HCl (Zofran) 4 mg IV Q4-6HP PRN PRN Reason: Nausea And Vomiting Pantoprazole Sodium (Protonix) 40 mg PO QAMAC [facility] Last Admin: 07/05/16 08:10 Dose: 40 mg Budesonide/Formoterol Fumarate [Symbicort] 160/4.5 Mcg Inhaler 2 dose INH Q12H [facility] Last Admin: 07/05/16 12:53 Dose: Not Given Senna/Docusate Sodium (Senna Plus Tablet) 1 tab PO HS [facility] Last Admin: 07/04/16 20:38 Dose: Not Given Sodium Chloride (Saline Flush) 10 ml IV Q8 [facility] Last Admin: 07/05/16 08:10 Dose: 10 ml Sodium Chloride (Saline Flush) 10 ml IV UD PRN PRN Reason: FLUSH Timolol Maleate (Timoptic 0.5% Ophth Drops) 1 gtt OU DAILY [facility] Last Admin: 07/05/16 12:54 Dose: Not Given Trazodone HCl (Desyrel) 50 mg PO HSP PRN PRN Reason: Insomnia Last Admin: 07/02/16 23:39 Dose: 50 mg Vancomycin HCl (Vancomycin Per Pharmacy) 1 order IV UD [facility] Warfarin Sodium (Coumadin) 2.5 mg PO ONCE@1400 ONE Stop: 07/05/16 14:01 Medical - PN: A/P - Time Spent With Patient Total time spent is greater than 50% in coordination of care (as documented) at patient's floor/unit and/or counseling patient: (1) Acute on chronic renal failure Status: Acute Current Visit: Yes (2) Cellulitis Problem details: complicated skin and skin structure infection of both legs anterior surface from the knee up to the ankles and dorsal surface Ankle brachial indices were done in the past 0.6 and 0.7 respectively right and left lower extremities. At this time, patient has a low flow syndrome and hypotension. He is on vasopressors and gradually improving. Status: Acute Current Visit: Yes (3) Congestive heart failure Problem details: acute on chr heart failure, improved now, to be evaluated by Dr Chavez, LVEF 25, etiology? EToh, fpc Afib, vs ischemic, await stress terra results done at [facility]. Status: Acute Current Visit: No (4) Systolic CHF with reduced left ventricular function, NYHA class 3 Status: Acute Current Visit: No (5) Atrial fibrillation and flutter Problem details: on metoprolol and amiodarone, HR stable today. patient has high CHADSvasc score, but has declined use of anticoagulation medications. He fully understands the risk of this decisions. Status: Chronic Current Visit: No (6) CKD (chronic kidney disease), stage III Problem details: most recent s.creat is 1.7 which equals to egfr of 41ml/min per MDRD s.creat during the hospital stay was 1.7-1.9 UA shows overt proteinuria DM type 2, cardiomyopathy, CHF are risk factor for renal disease labs discussed with the pt and her daughter explained CKD, progressive nature of the disease advised to avoid NSAIDS, volume depletion Advised to try and keep DM under optimal control will follow with work up as listed below in 4 weeks Status: Chronic Current Visit: No (7) Diabetes mellitus Status: Chronic Current Visit: No (8) Hypothyroidism Status: Chronic Current Visit: No - Narrative A/P Narrative: The patient has sepsis from lower extremity cellutlitis The cellutlitis does not seem to be responding well to vancomycin and zosy, rising wbc counts and fever. Will get X ray of the lower extremitites to r/o any gas in the sub cutaneous tissue, does not appear to be so clinically. I will also repeat blood cultures in light of fever as well as add IV clindamycin to his regime. Will continue with vancomycin and zosyn. CHF/ AFib on amiodrrone, coumadin with therapeutic INR. continue seame. HR stable at this time. cva? I am not sure about CVA as the cause of ams, CT head is negative, none the less pt is anticoagulated at this time. pt creat is improving with creat of 2.0. continue to monitor follow wound care reccs for management of severe cellutitis/ as well as decub ulcers on the lower extermities. Medical - PN: Qual - VTE Deep Vein Thrombosis/Pulmonary Embolism Present on Admission: No
--- NOTE | 2016-07-05 13:58 | XRay Report ---
CLINICAL INFORMATION: Cellulitis TECHNIQUE: AP and lateral right foot COMPARISON: None. FINDINGS: Heterogeneous appearance consistent with osteopenia. No soft tissue gas both. No radiopaque foreign body. No right foot fracture. No definite cortical destruction or periosteal new bone formation. No evidence for osteomyelitis. IMPRESSION: 1. Probable osteopenia. 2. No acute or focal abnormality. Interpreted and Authenticated by: Pramod Lucio 07/05/16
[2016-07-05] MEDS ORDERED: WARFARIN 2.5 MG TABLET PO ONE (14:00)
--- NOTE | 2016-07-05 14:01 | XRay Report ---
CLINICAL INFORMATION: Cellulitis TECHNIQUE: AP and lateral left foot COMPARISON: 11/15/2012 FINDINGS: Changes consistent with osteopenia. No acute fracture. There is a probable small erosion involving the proximal and medial aspects of left 1st proximal phalanx. This may be secondary to gout. No soft tissue calcification. No soft tissue gas bubbles. No radiopaque foreign body. No fracture. No acute cortical destruction or periosteal new bone formation. No evidence for osteomyelitis IMPRESSION: 1. Heterogeneous bone density consistent with osteopenia 2. No acute or focal abnormality. Interpreted and Authenticated by: Pramod Lucio 07/05/16
--- NOTE | 2016-07-05 14:02 | XRay Report ---
CLINICAL INFORMATION: Cellulitis TECHNIQUE: AP and lateral right tibia and fibula COMPARISON: None. FINDINGS: Heterogeneous appearance is consistent with osteopenia. No fracture. No lytic lesion. No evidence for osteomyelitis. No soft tissue gas or radiopaque foreign body IMPRESSION: No focal abnormality Interpreted and Authenticated by: Pramod Lucio 07/05/16
--- NOTE | 2016-07-05 14:04 | XRay Report ---
CLINICAL INFORMATION: Cellulitis TECHNIQUE: AP and lateral left tibia and fibula COMPARISON: None. FINDINGS: Heterogeneous appearance consistent with osteopenia. No fracture. No cortical destruction. No evidence for osteomyelitis. No soft tissue gas or radiopaque foreign body. There are vascular clips in the left lower extremity IMPRESSION: 1. Probable osteopenia 2. No acute abnormality. Interpreted and Authenticated by: Pramod Lucio 07/05/16
[2016-07-05] MEDS: CLINDAMYCIN 600 MG in DEXTROSE 5% IN WATER 50 ML IV SCH ×2 (14:05→20:40)
[2016-07-05] MEDS: FUROSEMIDE 40 MG TABLET PO SCH (15:20)
[2016-07-05 15:30] LABS: Vancomycin,Random 14.3 ug/ml
[2016-07-05] MEDS ORDERED: 0.9 % SODIUM CHLORIDE 1,000 ML IV SCH (15:45)
[2016-07-05] MEDS: ATORVASTATIN 20 MG TABLET PO SCH (20:39)
[2016-07-05] MEDS: SENNOSIDES/DOCUSATE SODIUM 1 TAB TABLET PO SCH (20:40)
[2016-07-06] MEDS ORDERED: DEXTROSE 5%-1/2NS 1,000 ML IV SCH (00:15)
[2016-07-06] MEDS: 0.9 % SODIUM CHLORIDE 10 ML SYRINGE IV SCH ×4 (04:16→22:39)
[2016-07-06] MEDS: CLINDAMYCIN 600 MG in DEXTROSE 5% IN WATER 50 ML IV SCH ×3 (05:04→22:34)
[2016-07-06] MEDS: PIPERACILLIN SODIUM/TAZOBACTAM 2.25 GM in DEXTROSE 5% IN WATER 50 ML IV SCH ×3 (05:04→18:04)
[2016-07-06 06:44] LABS: Mean Cell Volume 90.3 fL (80.0-100.0); Mean Corpuscular HGB Conc 32.6 g/dL (31.0-36.0); Mean Corpuscular Hemoglobin 29.5 pg (26.0-34.0); Platelet Count 188 K/mcL (140-440); RBC 3.15 M/mcL (4.50-5.90); Red Cell Distribution Width 17.2 % (11.5-14.5)
[2016-07-06] MEDS: INSULIN LISPRO 1 UNIT/0.01 ML UNIT SQ SCH ×5 (07:22→22:33)
[2016-07-06 07:24] LABS: ALT/SGPT 10 U/l (0-40); Albumin 2.3 gm/dL (3.2-5.2); Albumin/Globulin Ratio 0.6 (1.0-2.3); Alkaline Phosphatase 57 U/L (39-117); Bilirubin,Direct < 0.2 mg/dL (0.0-0.3); Blood Urea Nitrogen 38 mg/dl (8-23); Gamma Glutamyl Transpeptidase 13 U/L (8-61); Magnesium 2.1 mg/dL (1.6-2.5); Phosphorous 3.8 mg/dL (2.7-4.5); Uric Acid 8.2 mg/dL (2.5-8.0)
[2016-07-06] MEDS: PANTOPRAZOLE 40 MG TABLET PO SCH (07:25)
[2016-07-06] MEDS: LEVOTHYROXINE 25 MCG TABLET PO SCH (07:25)
[2016-07-06] MEDS: AMIODARONE HCL 200 MG TABLET PO SCH (07:25)
[2016-07-06 07:57] LABS: Anisocytosis 1+ (NONE SEEN); Band Neutrophils % 1 % (0-10); Eosinophils % (Manual) 7 % (0-7); Lymphocytes % 8 % (15-49); Monocytes % (Manual) 3 % (1-9); Platelet Estimate NORMAL (NORMAL); RBC Morphology ABNORM (NORMAL); Segmented Neutrophils % 81 % (38-78)
[2016-07-06] MEDS: HYDROmorphone 2 MG/ML SYRINGE IV PRN ×4 (08:55→20:30)
[2016-07-06] MEDS: ASPIRIN 81 MG TAB.CHEW PO SCH (08:57)
[2016-07-06] MEDS: ALLOPURINOL 100 MG TABLET PO SCH (08:57)
[2016-07-06] MEDS: DOCUSATE SODIUM 100 MG CAPSULE PO SCH ×2 (08:57→22:32)
[2016-07-06] MEDS: METOPROLOL TARTRATE 25 MG TABLET PO SCH ×2 (08:57→22:32)
[2016-07-06] MEDS: MULTIVIT,THER IRON,CA,FA & MIN 1 TABLET PO SCH (08:57)
[2016-07-06] MEDS: FOLIC ACID 1 MG TABLET PO SCH (08:57)
[2016-07-06] MEDS: TIMOLOL 0.5% OPHTH DROPS BOTTLE 5ML OU SCH (08:58)
[2016-07-06] MEDS: Budesonide/Formoterol Fumarate [Symbicort] 160/4.5 mcg Inhaler INH SCH ×2 (08:58→22:22)
[2016-07-06] MEDS ORDERED: VANCOMYCIN 1,000 MG in 0.9 % SODIUM CHLORIDE 250 ML IV ONE (09:00)
--- NOTE | 2016-07-06 12:41 | General Surgery Progress Note ---
Subjective Patient reports: feels better, pain is less, tolerating a regular diet, bowel movement, other (Alert and coversational BUT admits to being confused. I saw him today with his daughter and RN in ICU.) Narrative: Note initiated : 07/06/16 at 12:37 pm Service Date, if different from initiated Date: [] Patient: Guy Hernandez 65 y/o M admitted on 07/02/16 for Wound Infection/ Sepsis, Cellulitis. Chief Complaint: [] Objective Temp Pulse Resp BP Pulse Ox 99.3 F 99 H 20 124/72 95 07/06/16 12:00 07/06/16 11:00 07/06/16 12:00 07/06/16 12:00 07/06/16 12:00 Low grade temperature. tachycardia improved NSR. O2 Sats 94 On O2 NC. Chest CTA , Soft abdomen. Om going wound care , dressings BID. Will check wounds tomorrow. Labs WBC now normal; K 4.2 / Cr 1.6 Alb 2.3 - Additional Data Intake & Output - Last 24 hours: Intake & Output 07/04/16 07/05/16 07/06/16 07/07/16 05:59 05:59 05:59 05:59 Intake Total 2885 / 2885 2122 / 2122 2928 / 2928 644 / 644 Output Total 4050 / 4050 3830 / 3830 1730 / 1730 445 / 445 Balance -1165 / -1165 -1708 / -1708 1198 / 1198 199 / 199 Weight 213 lb 11.2 oz 204 lb 4.8 oz 198 lb 3.2 oz - Labs 07/06/16 04:00 07/06/16 04:00 Diabetes panel 07/06/16 Range/Units 04:00 Sodium 144 (133-145) mmol/L Potassium 4.2 (3.3-5.1) mmol/L Chloride 107 (96-108) mmol/L Carbon Dioxide 25 (22-30) mmol/L BUN 38 H (8-23) mg/dl Creatinine 1.6 H (0.7-1.2) mg/dl Glucose 76 (70-105) mg/dL Calcium 8.3 L (8.6-10.4) mg/dl AST 21 (0-37) U/l ALT 10 (0-40) U/l Alkaline Phosphatase 57 (39-117) U/L Total Protein 6.0 (5.9-8.4) gm/dL Albumin 2.3 L (3.2-5.2) gm/dL Triglycerides 62 (<150) mg/dl Calcium panel 07/06/16 Range/Units 04:00 Calcium 8.3 L (8.6-10.4) mg/dl Phosphorus 3.8 (2.7-4.5) mg/dL Albumin 2.3 L (3.2-5.2) gm/dL Pituitary panel 07/06/16 Range/Units 04:00 Sodium 144 (133-145) mmol/L Potassium 4.2 (3.3-5.1) mmol/L Chloride 107 (96-108) mmol/L Carbon Dioxide 25 (22-30) mmol/L BUN 38 H (8-23) mg/dl Creatinine 1.6 H (0.7-1.2) mg/dl Glucose 76 (70-105) mg/dL Calcium 8.3 L (8.6-10.4) mg/dl Adrenal panel 07/06/16 Range/Units 04:00 Sodium 144 (133-145) mmol/L Potassium 4.2 (3.3-5.1) mmol/L Chloride 107 (96-108) mmol/L Carbon Dioxide 25 (22-30) mmol/L BUN 38 H (8-23) mg/dl Creatinine 1.6 H (0.7-1.2) mg/dl Glucose 76 (70-105) mg/dL Calcium 8.3 L (8.6-10.4) mg/dl Total Bilirubin 0.2 (0.0-1.0) mg/dL AST 21 (0-37) U/l ALT 10 (0-40) U/l Alkaline Phosphatase 57 (39-117) U/L Total Protein 6.0 (5.9-8.4) gm/dL Albumin 2.3 L (3.2-5.2) gm/dL Medical - PN: A/P - Time Spent With Patient Total time spent is greater than 50% in coordination of care (as documented) at patient's floor/unit and/or counseling patient: (1) Cellulitis Problem details: complicated skin and skin structure infection of both legs anterior surface from the knee up to the ankles and dorsal surface Ankle brachial indices were done in the past 0.6 and 0.7 respectively right and left lower extremities. At this time, patient has a low flow syndrome and hypotension. He is on vasopressors and gradually improving. Status: Acute Current Visit: Yes
[2016-07-06] MEDS: MUPIROCIN CRM 2% 15 GM TUBE TOPICAL SCH ×2 (13:12→21:27)
--- NOTE | 2016-07-06 18:24 | Internal Med Progress Note ---
Medical - PN: Subj Patient information: Note initiated : 07/06/16 at 6:23 pm Service Date, if different from initiated Date: [] Patient: Guy Hernandez 65 y/o M admitted on 07/02/16 for Wound Infection/ Sepsis, Cellulitis. Chief Complaint: [] Interval history: The patient seen examined this AM, no acute overnight issues, Still has some pain in the legs, but over all doing ok no fever labs reviewed wbc trending down, INR is stable at 3.0, [facility]6 Pertinent ROS: Denies headache, dizziness Denies chest pain, palpitations Denies cough or shortness of breath Denies abdominal pain, nausea or vomiting. - Constitutional Vitals: Vital Signs Temp Pulse Resp BP Pulse Ox 99.3 F 93 H 18 136/71 100 07/06/16 16:00 07/06/16 18:00 07/06/16 18:00 07/06/16 18:00 07/06/16 17:00 Period Temp Pulse Resp BP Sys/Zee Pulse Ox Last 24 Hr 98.8 F-99.7 F 81-109 10-20 89-154/54-95 91-100 Intake and Output 07/06/16 07/06/16 07/06/16 05:59 13:59 21:59 Intake Total 391 / 391 934 / 934 294 / 294 Output Total 335 / 335 545 / 545 170 / 170 Balance 56 / 56 389 / 389 124 / 124 Intake & Output: Intake & Output 07/06/16 07/06/16 07/06/16 05:59 13:59 21:59 Intake Total 391 / 391 934 / 934 294 / 294 Output Total 335 / 335 545 / 545 170 / 170 Balance 56 / 56 389 / 389 124 / 124 Intake: IV 391 / 391 154 / 154 54 / 54 Sodium Chloride 0.9% 1, 341 / 341 000 ml @ 50 mls/hr IV . Q20H ALISSA Rx#:[id number] Dextrose 5% in Water 50 54 / 54 54 / 54 ml @ 100 mls/hr IV Q8H ALISSA with Cleocin 600 mg Rx#:[id number] Dextrose 5% in Water 50 50 / 50 100 / 100 ml @ 100 mls/hr IV Q6H ALISSA with Zosyn 2.25 gm Rx #:[id number] Oral 780 / 780 240 / 240 Output: Urine Catheter Amount 335 / 335 495 / 495 170 / 170 Void Amount 50 / 50 Other: Meal Nourishment/Supplement Percent of Meal Consumed 25% Exam: Constitutional; Afebrile, cooperative, alert, not in distress. Eyes- No icterus, Pupils equal, reactive, No periorbital swelling Ears- Ext ear normal, hearing normal to conversation. Neck- Midline trachea, supple Respiratory system: Air Entry equal on both sides, No crackles or wheezing, no rhonchi. CVS- Rate rhythm irregular, S1,S2 heard, no gallop, no rub. 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 Medical - PN: Obj Da - Labs CBC & Chem 7: 07/06/16 04:00 07/06/16 04:00 Labs: Abnormal Lab Results 07/06/16 07/06/16 07/06/16 04:00 04:00 04:00 WBC RBC 3.15 L Hgb 9.3 L Hct 28.5 L RDW 17.2 H Gran % Lymph % (Auto) [place] % (Auto) Gran # Lymph # [place] # Seg Neutrophils % 81 H Lymphocytes % 8 L RBC Morphology Abnorm A Polychromasia 1+ A Anisocytosis 1+ A PT 32.6 H INR 3.0 H Potassium BUN 38 H Creatinine 1.6 H Glucose Uric Acid 8.2 H Calcium 8.3 L Albumin 2.3 L Globulin Albumin/Globulin Ratio 0.6 L 07/05/16 07/05/16 07/05/16 07:05 07:05 07:05 WBC 12.7 H RBC 3.56 L Hgb 10.3 L Hct 31.6 L RDW 17.2 H Gran % 78.9 H Lymph % (Auto) 9.0 L [place] % (Auto) 9.2 H Gran # 10.0 H Lymph # 1.1 L [place] # 1.2 H Seg Neutrophils % Lymphocytes % RBC Morphology Polychromasia Anisocytosis PT 23.3 H INR 2.0 H Potassium BUN 48 H Creatinine 2.0 H Glucose 46 L Uric Acid 8.6 H Calcium 8.5 L Albumin 2.2 L Globulin 3.8 H Albumin/Globulin Ratio 0.6 L 07/04/16 07/04/16 07/04/16 05:15 05:15 04:00 WBC 11.3 H RBC 3.83 L Hgb 10.9 L Hct 34.5 L RDW 17.9 H Gran % Lymph % (Auto) [place] % (Auto) Gran # Lymph # [place] # Seg Neutrophils % Lymphocytes % 12 L RBC Morphology Abnorm A Polychromasia Anisocytosis 1+ A PT 20.1 H INR 1.7 H Potassium 5.4 H BUN 52 H Creatinine 2.2 H Glucose Uric Acid 8.8 H Calcium Albumin 2.9 L Globulin Albumin/Globulin Ratio 0.8 L Meds: Medications Acetaminophen (Tylenol) 650 mg PO Q4-6HP PRN PRN Reason: PAIN/FEVER > 101 Allopurinol (Zyloprim) 200 mg PO QDAY [facility] Last Admin: 07/06/16 08:57 Dose: 200 mg Amiodarone HCl (Cordarone) 200 mg PO [facility] Last Admin: 07/06/16 07:25 Dose: 200 mg Aspirin (Aspirin) 162 mg PO DAILY [facility] Last Admin: 07/06/16 08:57 Dose: 162 mg Atorvastatin Calcium (Lipitor) 10 mg PO HS [facility] Last Admin: 07/05/16 20:39 Dose: 10 mg Dextrose (Dextrose 50%) 0 ml IV UD PRN PRN Reason: Hypoglycemia Last Admin: 07/05/16 08:07 Dose: 50 ml Diagnostic Test (Pha) (Accu-Chek) 1 each FS ACHS [facility] Last Admin: 07/06/16 17:17 Dose: 1 each Docusate Sodium (Colace) 100 mg PO BID [facility] Last Admin: 07/06/16 08:57 Dose: 100 mg Folic Acid (Folic Acid) 1 mg PO DAILY [facility] Last Admin: 07/06/16 08:57 Dose: 1 mg Guaifenesin/Codeine Phosphate (Robitussin Ac) 10 ml PO Q4HP PRN PRN Reason: Cough Heparin Sodium (Porcine) (Heparin Flush) 2 ml IV Q12 [facility] Last Admin: 07/06/16 08:58 Dose: 2 ml Hydromorphone HCl (Dilaudid) 0 mg IV Q4HP PRN PRN Reason: Pain Last Admin: 07/06/16 14:54 Dose: 0.5 mg Magnesium Sulfate (Magnesium Sulfate) 2 gm in 50 mls @ 50 mls/hr IV UD PRN PRN Reason: MG = or < 1.7 Acetaminophen (Ofirmev) 1,000 mg in 100 mls @ 200 mls/hr IV Q6HP PRN PRN Reason: PAIN/FEVER > 101 Last Infusion: 07/03/16 01:16 Dose: Infused Piperacillin Sod/Tazobactam (Sod 2.25 gm/ Dextrose) 50 mls @ 100 mls/hr IV Q6H [facility] Last Admin: 07/06/16 18:04 Dose: 100 mls/hr Clindamycin Phosphate 600 mg/ (Dextrose) 54 mls @ 100 mls/hr IV Q8H [facility] Last Infusion: 07/06/16 18:05 Dose: Infused Dextrose/Sodium Chloride (Dextrose 5%-1/2ns Iv Solution) 1,000 mls @ 50 mls/hr IV .Q20H [facility] Last Admin: 07/06/16 00:20 Dose: 50 mls/hr Insulin Human Lispro (Humalog) 0 unit SQ ACHS [facility] PRN Reason: Protocol Last Admin: 07/06/16 17:21 Dose: 4 unit Iron Carb/Multivit/[place]/Folic Acid (Multivitamin W/Minerals) 1 tab PO DAILY [facility] Last Admin: 07/06/16 08:57 Dose: 1 tab [facility]othy[facility]ine [facility] ([facility]throid) [facility] Last Admin: 07/06/16 07:25 Dose: 25 mcg Metoprolol Tartrate (Lopressor) 75 mg PO BID [facility] Last Admin: 07/06/16 08:57 Dose: 75 mg Mupirocin (Bactroban Crm 2%) 1 gm TOPICAL BID [facility] Last Admin: 07/06/16 13:12 Dose: Not Given Ondansetron HCl (Zofran) 4 mg IV Q4-6HP PRN PRN Reason: Nausea And Vomiting Pantoprazole Sodium (Protonix) 40 mg PO QAMAC [facility] Last Admin: 07/06/16 07:25 Dose: 40 mg Budesonide/Formoterol Fumarate [Symbicort] 160/4.5 Mcg Inhaler 2 dose INH Q12H [facility] Last Admin: 07/06/16 08:58 Dose: Not Given Senna/Docusate Sodium (Senna Plus Tablet) 1 tab PO HS [facility] Last Admin: 07/05/16 20:40 Dose: 1 tab Sodium Chloride (Saline Flush) 10 ml IV Q8 [facility] Last Admin: 07/06/16 14:13 Dose: 10 ml Sodium Chloride (Saline Flush) 10 ml IV UD PRN PRN Reason: FLUSH Timolol Maleate (Timoptic 0.5% Ophth Drops) 1 gtt OU DAILY [facility] Last Admin: 07/06/16 08:58 Dose: Not Given Trazodone HCl (Desyrel) 50 mg PO HSP PRN PRN Reason: Insomnia Last Admin: 07/02/16 23:39 Dose: 50 mg Vancomycin HCl (Vancomycin Per Pharmacy) 1 order IV UD [facility] Medical - PN: A/P - Time Spent With Patient Total time spent is greater than 50% in coordination of care (as documented) at patient's floor/unit and/or counseling patient: (1) Acute on chronic renal failure Status: Acute Current Visit: Yes (2) Cellulitis Problem details: complicated skin and skin structure infection of both legs anterior surface from the knee up to the ankles and dorsal surface Ankle brachial indices were done in the past 0.6 and 0.7 respectively right and left lower extremities. At this time, patient has a low flow syndrome and hypotension. He is on vasopressors and gradually improving. Status: Acute Current Visit: Yes (3) Congestive heart failure Problem details: acute on chr heart failure, improved now, to be evaluated by Dr Chavez, LVEF 25, etiology? EToh, senior care Afib, vs ischemic, await stress terra results done at [facility]. Status: Acute Current Visit: No (4) Systolic CHF with reduced left ventricular function, NYHA class 3 Status: Acute Current Visit: No (5) Atrial fibrillation and flutter Problem details: on metoprolol and amiodarone, HR stable today. patient has high CHADSvasc score, but has declined use of anticoagulation medications. He fully understands the risk of this decisions. Status: Chronic Current Visit: No (6) CKD (chronic kidney disease), stage III Problem details: most recent s.creat is 1.7 which equals to egfr of 41ml/min per MDRD s.creat during the hospital stay was 1.7-1.9 UA shows overt proteinuria DM type 2, cardiomyopathy, CHF are risk factor for renal disease labs discussed with the pt and her daughter explained CKD, progressive nature of the disease advised to avoid NSAIDS, volume depletion Advised to try and keep DM under optimal control will follow with work up as listed below in 4 weeks Status: Chronic Current Visit: No (7) Diabetes mellitus Status: Chronic Current Visit: No (8) Hypothyroidism Status: Chronic Current Visit: No - Narrative A/P Narrative: Cellutitis/ -continue IV antibiotics, IV vanco, zosyn and clindamycin, sepsis resilved, Wound care as per Dr Nobles, needs twice daily dressings Kidney function improving, patient at baseline renal function. Cardiomyopathy/ CHF stable, not in fluid overload, no increased oxygen needs DVT hep sq diet Cardiac, DM patient had some low glucose values and poor oral intake, therefore was started on D5, will reassess his intakei n AM and adjust fluids Dispo- consider discharge to [facility] facility if remains stable. for wound care and IV antibiotics. afib HR stable. Medical - PN: Qual - VTE Deep Vein Thrombosis/Pulmonary Embolism Present on Admission: No
[2016-07-06] MEDS: SENNOSIDES/DOCUSATE SODIUM 1 TAB TABLET PO SCH (22:32)
[2016-07-06] MEDS: ATORVASTATIN 20 MG TABLET PO SCH (22:32)
[2016-07-07] MEDS: PIPERACILLIN SODIUM/TAZOBACTAM 2.25 GM in DEXTROSE 5% IN WATER 50 ML IV SCH ×5 (00:52→23:56)
[2016-07-07] MEDS: HYDROmorphone 2 MG/ML SYRINGE IV PRN ×6 (00:53→21:21)
[2016-07-07] MEDS: CLINDAMYCIN 600 MG in DEXTROSE 5% IN WATER 50 ML IV SCH ×3 (04:48→21:36)
[2016-07-07] MEDS: 0.9 % SODIUM CHLORIDE 10 ML SYRINGE IV SCH ×3 (04:48→21:41)
[2016-07-07 05:52] LABS: Mean Cell Volume 88.5 fL (80.0-100.0); Mean Corpuscular HGB Conc 33.5 g/dL (31.0-36.0); Mean Corpuscular Hemoglobin 29.6 pg (26.0-34.0); Platelet Count 195 K/mcL (140-440); RBC 3.28 M/mcL (4.50-5.90); Red Cell Distribution Width 16.8 % (11.5-14.5)
[2016-07-07 06:31] LABS: ALT/SGPT 10 U/l (0-40); Albumin 2.2 gm/dL (3.2-5.2); Albumin/Globulin Ratio 0.6 (1.0-2.3); Alkaline Phosphatase 63 U/L (39-117); Bilirubin,Direct < 0.2 mg/dL (0.0-0.3); Blood Urea Nitrogen 33 mg/dl (8-23); Gamma Glutamyl Transpeptidase 15 U/L (8-61); Magnesium 2.2 mg/dL (1.6-2.5); Phosphorous 3.4 mg/dL (2.7-4.5); Uric Acid 6.7 mg/dL (2.5-8.0)
[2016-07-07] MEDS: PANTOPRAZOLE 40 MG TABLET PO SCH (07:12)
[2016-07-07] MEDS: LEVOTHYROXINE 25 MCG TABLET PO SCH (07:12)
[2016-07-07] MEDS: INSULIN LISPRO 1 UNIT/0.01 ML UNIT SQ SCH ×4 (07:12→22:10)
[2016-07-07 08:32] LABS: Anisocytosis 1+ (NONE SEEN); Band Neutrophils % 4 % (0-10); Eosinophils % (Manual) 4 % (0-7); Lymphocytes % 8 % (15-49); Monocytes % (Manual) 6 % (1-9); Ovalocytes FEW (NONE SEEN); Platelet Estimate NORMAL (NORMAL); RBC Morphology ABNORMAL (NORMAL); Segmented Neutrophils % 78 % (38-78)
[2016-07-07] MEDS ORDERED: FUROSEMIDE 40 MG TABLET PO SCH (09:00)
[2016-07-07] MEDS: AMIODARONE HCL 200 MG TABLET PO SCH (09:48)
[2016-07-07] MEDS: ASPIRIN 81 MG TAB.CHEW PO SCH (09:49)
[2016-07-07] MEDS: MUPIROCIN CRM 2% 15 GM TUBE TOPICAL SCH (09:51)
[2016-07-07] MEDS: DOCUSATE SODIUM 100 MG CAPSULE PO SCH ×2 (09:52→21:34)
[2016-07-07] MEDS: FOLIC ACID 1 MG TABLET PO SCH (09:52)
[2016-07-07] MEDS: METOPROLOL TARTRATE 25 MG TABLET PO SCH ×2 (09:52→21:35)
[2016-07-07] MEDS: Budesonide/Formoterol Fumarate [Symbicort] 160/4.5 mcg Inhaler INH SCH ×2 (09:53→21:42)
[2016-07-07] MEDS: MULTIVIT,THER IRON,CA,FA & MIN 1 TABLET PO SCH (09:53)
[2016-07-07] MEDS: TIMOLOL 0.5% OPHTH DROPS BOTTLE 5ML OU SCH (09:53)
[2016-07-07] MEDS: ALLOPURINOL 100 MG TABLET PO SCH (09:53)
[2016-07-07] MEDS ORDERED: VANCOMYCIN 1,000 MG in 0.9 % SODIUM CHLORIDE 250 ML IV SCH (10:00)
[2016-07-07] MEDS ORDERED: DEXTROSE 50% 50 ML VIAL IV PRN (10:57)
[2016-07-07] MEDS ORDERED: guaiFENesin/CODEINE 10 ML UDC PO PRN (10:57)
[2016-07-07] MEDS ORDERED: traZODone HCL 50 MG TABLET PO PRN (10:57)
[2016-07-07] MEDS ORDERED: MAGNESIUM SULFATE 2 GM/50 ML BAG IV PRN (10:57)
[2016-07-07] MEDS ORDERED: ACETAMINOPHEN 325 MG TABLET PO PRN (10:57)
[2016-07-07] MEDS ORDERED: ACETAMINOPHEN 1,000 MG/100 ML BOTTLE IV PRN (10:57)
[2016-07-07] MEDS ORDERED: VANCOMYCIN PER PHARMACY IV SCH (10:57)
[2016-07-07] MEDS ORDERED: 0.9 % SODIUM CHLORIDE 10 ML SYRINGE IV PRN (10:57)
[2016-07-07] MEDS ORDERED: ONDANSETRON 4 MG/2 ML VIAL IV PRN (10:57)
--- NOTE | 2016-07-07 16:40 | Internal Med Progress Note ---
Medical - PN: Subj Patient information: Note initiated : 07/07/16 at 4:38 pm Service Date, if different from initiated Date: [] Patient: Guy Hernandez 65 y/o M admitted on 07/02/16 for Wound Infection/ Sepsis, Cellulitis. Chief Complaint: [] Interval history: The patient seen examined today, daughter by bedside, eating breakfast and was in a good mood The patient denies any acute complaints, no acute overnight issues, tolerating po diet well, hence IV fluids discontinued. The patient labs reviewed, wbc normal, Creat is at 1.3, finger stick glucose ok Microbiology is negative discussed with the patient discharge plans, _[facility] him, needs bid dressing. Pertinent ROS: Denies headache, dizziness Denies chest pain, palpitations Denies cough or shortness of breath Denies abdominal pain, nausea or vomiting. - Constitutional Vitals: Vital Signs Temp Pulse Resp BP Pulse Ox 97.7 F 102 H 20 116/67 94 07/07/16 11:35 07/07/16 09:00 07/07/16 11:35 07/07/16 11:35 07/07/16 11:35 Period Temp Pulse Resp BP Sys/Zee Pulse Ox Last 24 Hr 97.7 F-99.8 F 75-102 10-20 115-153/58-83 91-100 Intake and Output 07/07/16 07/07/16 07/07/16 05:59 13:59 21:59 Intake Total 104 / 104 1754 / 1754 Output Total 525 / 525 410 / 410 Balance -421 / -421 1344 / 1344 Weight 208 lb 12.8 oz Patient Weight 07/08/16 05:59 Weight 208 lb 12.8 oz Intake & Output: Intake & Output 07/07/16 07/07/16 07/07/16 05:59 13:59 21:59 Intake Total 104 / 104 1754 / 1754 Output Total 525 / 525 410 / 410 Balance -421 / -421 1344 / 1344 Weight 208 lb 12.8 oz Intake: IV 104 / 104 1354 / 1354 Dextrose 5% in Water 50 54 / 54 54 / 54 ml @ 100 mls/hr IV Q8H ALISSA with Cleocin 600 mg Rx#:[id number] Dextrose 5% in Water 50 50 / 50 50 / 50 ml @ 100 mls/hr IV Q6H ALISSA with Zosyn 2.25 gm Rx #:[id number] Oral 400 / 400 Output: Urine Catheter Amount 525 / 525 260 / 260 Void Amount 150 / 150 Other: Meal Breakfast Percent of Meal Consumed 25% Exam: Constitutional; Afebrile, cooperative, alert, not in distress. Eyes- No icterus, Pupils equal, reactive, No periorbital swelling Ears- Ext ear normal, hearing normal to conversation. Neck- Midline trachea, supple Respiratory system: Air Entry equal on both sides, No crackles or wheezing, no rhonchi. CVS- Rate rhythm irregular, S1,S2 heard, no gallop, no rub. 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 Medical - PN: Obj Da - Labs CBC & Chem 7: 07/07/16 04:05 07/07/16 04:05 Labs: Abnormal Lab Results 07/07/16 07/07/16 07/07/16 04:05 04:05 04:05 WBC RBC 3.28 L Hgb 9.7 L Hct 29.0 L RDW 16.8 H Gran % Lymph % (Auto) [place] % (Auto) Gran # Lymph # [place] # Seg Neutrophils % Lymphocytes % 8 L RBC Morphology Polychromasia Anisocytosis 1+ A Ovalocytes Few A PT 35.3 H INR 3.4 H BUN 33 H Creatinine 1.3 H Glucose 151 H Uric Acid Calcium 8.3 L Albumin 2.2 L Globulin Albumin/Globulin Ratio 0.6 L 07/06/16 07/06/16 07/06/16 04:00 04:00 04:00 WBC RBC 3.15 L Hgb 9.3 L Hct 28.5 L RDW 17.2 H Gran % Lymph % (Auto) [place] % (Auto) Gran # Lymph # [place] # Seg Neutrophils % 81 H Lymphocytes % 8 L RBC Morphology Abnorm A Polychromasia 1+ A Anisocytosis 1+ A Ovalocytes PT 32.6 H INR 3.0 H BUN 38 H Creatinine 1.6 H Glucose Uric Acid 8.2 H Calcium 8.3 L Albumin 2.3 L Globulin Albumin/Globulin Ratio 0.6 L 07/05/16 07/05/16 07/05/16 07:05 07:05 07:05 WBC 12.7 H RBC 3.56 L Hgb 10.3 L Hct 31.6 L RDW 17.2 H Gran % 78.9 H Lymph % (Auto) 9.0 L [place] % (Auto) 9.2 H Gran # 10.0 H Lymph # 1.1 L [place] # 1.2 H Seg Neutrophils % Lymphocytes % RBC Morphology Polychromasia Anisocytosis Ovalocytes PT 23.3 H INR 2.0 H BUN 48 H Creatinine 2.0 H Glucose 46 L Uric Acid 8.6 H Calcium 8.5 L Albumin 2.2 L Globulin 3.8 H Albumin/Globulin Ratio 0.6 L Meds: Medications Acetaminophen (Tylenol) 650 mg PO Q4-6HP PRN PRN Reason: PAIN/FEVER > 101 Allopurinol (Zyloprim) 200 mg PO QDAY [facility] Amiodarone HCl (Cordarone) 200 mg PO QAC [facility] Aspirin (Aspirin) 162 mg PO DAILY [facility] Atorvastatin Calcium (Lipitor) 10 mg PO HS [facility] Dextrose (Dextrose 50%) 0 ml IV UD PRN PRN Reason: Hypoglycemia Diagnostic Test (Pha) (Accu-Chek) 1 each FS ACHS [facility] Last Admin: 07/07/16 11:38 Dose: 1 each Docusate Sodium (Colace) 100 mg PO BID [facility] Folic Acid (Folic Acid) 1 mg PO DAILY [facility] Furosemide (Lasix) 40 mg PO DAILY [facility] Guaifenesin/Codeine Phosphate (Robitussin Ac) 10 ml PO Q4HP PRN PRN Reason: Cough Heparin Sodium (Porcine) (Heparin Flush) 2 ml IV Q12 [facility] Hydromorphone HCl (Dilaudid) 0 mg IV Q4HP PRN PRN Reason: Pain Clindamycin Phosphate 600 mg/ (Dextrose) 54 mls @ 100 mls/hr IV Q8H [facility] Magnesium Sulfate (Magnesium Sulfate) 2 gm in 50 mls @ 50 mls/hr IV UD PRN PRN Reason: MG = or < 1.7 Acetaminophen (Ofirmev) 1,000 mg in 100 mls @ 200 mls/hr IV Q6HP PRN PRN Reason: PAIN/FEVER > 101 Piperacillin Sod/Tazobactam (Sod 2.25 gm/ Dextrose) 50 mls @ 100 mls/hr IV Q6H [facility] Last Admin: 07/07/16 11:39 Dose: 100 mls/hr Vancomycin HCl 1,000 mg/ (Sodium Chloride) 250 mls @ 250 mls/hr IV Q24H [facility] Last Admin: 07/07/16 11:38 Dose: 250 mls/hr Insulin Human Lispro (Humalog) 0 unit SQ ACHS [facility] PRN Reason: Protocol Last Admin: 07/07/16 11:39 Dose: 2 unit Iron Carb/Multivit/[place]/Folic Acid (Multivitamin W/Minerals) 1 tab PO DAILY [facility] Levothyroxine Sodium (Synthroid) 25 mcg PO QAMAC [facility] Metoprolol Tartrate (Lopressor) 75 mg PO BID [facility] Mupirocin (Bactroban Crm 2%) 1 gm TOPICAL BID [facility] Ondansetron HCl (Zofran) 4 mg IV Q4-6HP PRN PRN Reason: Nausea And Vomiting Pantoprazole Sodium (Protonix) 40 mg PO QAMAC [facility] Budesonide/Formoterol Fumarate [Symbicort] 160/4.5 Mcg Inhaler 2 dose INH Q12H [facility] Senna/Docusate Sodium (Senna Plus Tablet) 1 tab PO HS [facility] Sodium Chloride (Saline Flush) 10 ml IV UD PRN PRN Reason: FLUSH Sodium Chloride (Saline Flush) 10 ml IV Q8 [facility] Timolol Maleate (Timoptic 0.5% Ophth Drops) 1 gtt OU DAILY [facility] Trazodone HCl (Desyrel) 50 mg PO HSP PRN PRN Reason: Insomnia Vancomycin HCl (Vancomycin Per Pharmacy) 1 order IV UD [facility] Medical - PN: A/P - Time Spent With Patient Total time spent is greater than 50% in coordination of care (as documented) at patient's floor/unit and/or counseling patient: (1) Acute on chronic renal failure Status: Acute Current Visit: Yes (2) Cellulitis Status: Acute Current Visit: Yes (3) Systolic CHF with reduced left ventricular function, NYHA class 3 Status: Acute Current Visit: No (4) Atrial fibrillation and flutter Status: Chronic Current Visit: No (5) Diabetes mellitus Status: Chronic Current Visit: No - Narrative A/P Narrative: patient doing better Xfer to med surg status d/c rendon continue IV antibiotics vanco and zosy and clindamycin for cellulitis, will atleast treat for additional 12 days. Coumadin as per pharmacy, INR 3.4 today, for afib CHF stable, not in fluid overload DM glucose levels acceptable, continue to monitor Dispo- Await answers from [facility] vs [place] to see if he can be accepted, cannot go home due to safety concern. Creat is improving. Medical - PN: Qual - VTE Deep Vein Thrombosis/Pulmonary Embolism Present on Admission: No
--- NOTE | 2016-07-07 17:54 | General Surgery Progress Note ---
Subjective Patient reports: other (Patient seen this morning and reassesed again . Now out of ICU to Med Surg. Spoke with patient's daughter. ) Narrative: Note initiated : 07/07/16 at 5:51 pm Service Date, if different from initiated Date: [] Patient: Guy Hernandez 65 y/o M admitted on 07/02/16 for Wound Infection/ Sepsis, Cellulitis. Chief Complaint: [] Objective Temp Pulse Resp BP Pulse Ox 97.7 F 102 H 20 116/67 94 07/07/16 11:35 07/07/16 09:00 07/07/16 11:35 07/07/16 11:35 07/07/16 11:35 AVSS. No acute changes in MIAH. TOlerated Physical therapy today. Creatinine in trending down, Antony catheter wilmar discontinued. - Additional Data Intake & Output - Last 24 hours: Intake & Output 07/05/16 07/06/16 07/07/16 07/08/16 05:59 05:59 05:59 05:59 Intake Total 2122 / 2122 2928 / 2928 1382 / 1382 1804 / 1804 Output Total 3830 / 3830 1730 / 1730 1540 / 1540 410 / 410 Balance -1708 / -1708 1198 / 1198 -158 / -158 1394 / 1394 Weight 204 lb 4.8 oz 198 lb 3.2 oz 208 lb 12.8 oz 208 lb 12.8 oz - Labs 07/07/16 04:05 07/07/16 04:05 Diabetes panel 07/07/16 Range/Units 04:05 Sodium 138 (133-145) mmol/L Potassium 4.1 (3.3-5.1) mmol/L Chloride 103 (96-108) mmol/L Carbon Dioxide 22 (22-30) mmol/L BUN 33 H (8-23) mg/dl Creatinine 1.3 H (0.7-1.2) mg/dl Glucose 151 H (70-105) mg/dL Calcium 8.3 L (8.6-10.4) mg/dl AST 18 (0-37) U/l ALT 10 (0-40) U/l Alkaline Phosphatase 63 (39-117) U/L Total Protein 5.9 (5.9-8.4) gm/dL Albumin 2.2 L (3.2-5.2) gm/dL Triglycerides 53 (<150) mg/dl Calcium panel 07/07/16 Range/Units 04:05 Calcium 8.3 L (8.6-10.4) mg/dl Phosphorus 3.4 (2.7-4.5) mg/dL Albumin 2.2 L (3.2-5.2) gm/dL Pituitary panel 07/07/16 Range/Units 04:05 Sodium 138 (133-145) mmol/L Potassium 4.1 (3.3-5.1) mmol/L Chloride 103 (96-108) mmol/L Carbon Dioxide 22 (22-30) mmol/L BUN 33 H (8-23) mg/dl Creatinine 1.3 H (0.7-1.2) mg/dl Glucose 151 H (70-105) mg/dL Calcium 8.3 L (8.6-10.4) mg/dl Adrenal panel 07/07/16 Range/Units 04:05 Sodium 138 (133-145) mmol/L Potassium 4.1 (3.3-5.1) mmol/L Chloride 103 (96-108) mmol/L Carbon Dioxide 22 (22-30) mmol/L BUN 33 H (8-23) mg/dl Creatinine 1.3 H (0.7-1.2) mg/dl Glucose 151 H (70-105) mg/dL Calcium 8.3 L (8.6-10.4) mg/dl Total Bilirubin 0.2 (0.0-1.0) mg/dL AST 18 (0-37) U/l ALT 10 (0-40) U/l Alkaline Phosphatase 63 (39-117) U/L Total Protein 5.9 (5.9-8.4) gm/dL Albumin 2.2 L (3.2-5.2) gm/dL Medical - PN: A/P - Time Spent With Patient Total time spent is greater than 50% in coordination of care (as documented) at patient's floor/unit and/or counseling patient: 15 - 24 minutes (Stable and improving from wound care point of view. MAY use BACITRACIN insted of Bactroban, IF Bacroban is NOT available.) (1) Cellulitis Status: Acute Current Visit: Yes
[2016-07-07] MEDS ORDERED: ATORVASTATIN 20 MG TABLET PO SCH (21:00)
[2016-07-07] MEDS ORDERED: SENNOSIDES/DOCUSATE SODIUM 1 TAB TABLET PO SCH (21:00)
[2016-07-07] MEDS ORDERED: MUPIROCIN CRM 2% 15 GM TUBE TOPICAL SCH (21:00)
[2016-07-08] MEDS: HYDROmorphone 2 MG/ML SYRINGE IV PRN ×3 (01:43→12:16)
[2016-07-08] MEDS: PIPERACILLIN SODIUM/TAZOBACTAM 2.25 GM in DEXTROSE 5% IN WATER 50 ML IV SCH (05:43)
[2016-07-08] MEDS: CLINDAMYCIN 600 MG in DEXTROSE 5% IN WATER 50 ML IV SCH (07:02)
[2016-07-08 07:29] LABS: Basophils # (Auto) 0 K/mcL (0.0-0.3); Basophils % (Auto) 0.4 % (0.0-2.0); Eosinophils # (Auto) 0.4 K/mcL (0.0-0.7); Eosinophils % (Auto) 3.4 % (0.0-7.0); Granulocytes % (Auto) 78.5 % (38.0-78.0); Lymphocytes # (Auto) 1.2 K/mcL (1.5-4.8); Mean Cell Volume 90.4 fL (80.0-100.0); Mean Corpuscular HGB Conc 32.1 g/dL (31.0-36.0); Monocytes # (Auto) 0.8 K/mcL (0.1-0.9); Monocytes % (Auto) 6.7 % (1.0-9.0); Platelet Count 210 K/mcL (140-440); RBC 3.53 M/mcL (4.50-5.90); Red Cell Distribution Width 17.5 % (11.5-14.5)
[2016-07-08] MEDS ORDERED: LEVOTHYROXINE 25 MCG TABLET PO SCH (07:30)
[2016-07-08] MEDS ORDERED: PANTOPRAZOLE 40 MG TABLET PO SCH (07:30)
[2016-07-08] MEDS ORDERED: AMIODARONE HCL 200 MG TABLET PO SCH (08:00)
[2016-07-08 08:14] LABS: ALT/SGPT 13 U/l (0-40); Albumin 2.6 gm/dL (3.2-5.2); Albumin/Globulin Ratio 0.9 (1.0-2.3); Alkaline Phosphatase 67 U/L (39-117); Bilirubin,Direct < 0.2 mg/dL (0.0-0.3); Blood Urea Nitrogen 27 mg/dl (8-23); Gamma Glutamyl Transpeptidase 16 U/L (8-61); Magnesium 1.9 mg/dL (1.6-2.5); Phosphorous 3.6 mg/dL (2.7-4.5); Uric Acid 6.7 mg/dL (2.5-8.0)
[2016-07-08] MEDS: INSULIN LISPRO 1 UNIT/0.01 ML UNIT SQ SCH (08:18)
[2016-07-08] MEDS: DOCUSATE SODIUM 100 MG CAPSULE PO SCH (08:23)
[2016-07-08] MEDS: METOPROLOL TARTRATE 25 MG TABLET PO SCH (08:24)
[2016-07-08] MEDS: Budesonide/Formoterol Fumarate [Symbicort] 160/4.5 mcg Inhaler INH SCH (08:26)
[2016-07-08] MEDS ORDERED: ASPIRIN 81 MG TAB.CHEW PO SCH (09:00)
[2016-07-08] MEDS ORDERED: MULTIVIT,THER IRON,CA,FA & MIN 1 TABLET PO SCH (09:00)
[2016-07-08] MEDS ORDERED: TIMOLOL 0.5% OPHTH DROPS BOTTLE 5ML OU SCH (09:00)
[2016-07-08] MEDS ORDERED: FOLIC ACID 1 MG TABLET PO SCH (09:00)
[2016-07-08] MEDS ORDERED: ALLOPURINOL 100 MG TABLET PO SCH (09:00)
[2016-07-08] MEDS ORDERED: FUROSEMIDE 40 MG TABLET PO SCH (09:00)
--- NOTE | 2016-07-08 10:43 | Discharge Summary ---
Medical - DS: Prov Patient information: Note initiated : 07/08/16 at 10:36 am Service Date, if different from initiated Date: [] Patient: Guy Hernandez 65 y/o M admitted on 07/02/16 for Wound Infection/ Sepsis, Cellulitis. Chief Complaint: [] Date of admission: 07/02/16 20:05 Discharge date: 07/08/16 Primary care physician: [f_Reg Prim Care Provider] Admitting clinician: Ariel Frias Consults: 07/03/16 08:24 Consult to Physician [CONS] Routine Comment: Consulting Provider: Marilyn Flores Reason For Exam: Physician to Consult 07/03/16 12:03 Consult to Physician [CONS] Routine Comment: wound care Consulting Provider: Chong Rojo Reason For Exam: Physician to Consult Discharging clinician: Steve Fagan Medical - DS: Meds - Discharge Medications Prescriptions: Piperacillin Sodium/Tazobactam [Piperacil-Tazobact 2.25 gm Vl] 2.25 gm IV HS #1 vial Warfarin [Coumadin] 3 mg PO DAILY #1 tablet Active and Home Medications: Active Medications Acetaminophen (Tylenol) 650 mg PO Q4-6HP PRN PRN Reason: PAIN/FEVER > 101 Allopurinol (Zyloprim) 200 mg PO QDAY [facility] Last Admin: 07/08/16 08:24 Dose: 200 mg Amiodarone HCl (Cordarone) 200 mg PO [facility] Last Admin: 07/08/16 08:17 Dose: 200 mg Aspirin (Aspirin) 162 mg PO DAILY [facility] Last Admin: 07/08/16 08:23 Dose: 162 mg Atorvastatin Calcium (Lipitor) 10 mg PO [facility] Last Admin: 07/07/16 21:34 Dose: 10 mg Dextrose (Dextrose 50%) 0 ml IV UD PRN PRN Reason: Hypoglycemia Diagnostic Test (Pha) (Accu-Chek) 1 each FS ACHS [facility] Last Admin: 07/08/16 07:12 Dose: 1 each Docusate Sodium (Colace) 100 mg PO BID [facility] Last Admin: 07/08/16 08:23 Dose: 100 mg Folic Acid (Folic Acid) 1 mg PO DAILY [facility] Last Admin: 07/08/16 08:24 Dose: 1 mg Furosemide (Lasix) 40 mg PO DAILY [facility] Last Admin: 07/08/16 08:25 Dose: 40 mg Guaifenesin/Codeine Phosphate (Robitussin Ac) 10 ml PO Q4HP PRN PRN Reason: Cough Heparin Sodium (Porcine) (Heparin Flush) 2 ml IV Q12 [facility] Last Admin: 07/08/16 08:24 Dose: 2 ml Hydromorphone HCl (Dilaudid) 0 mg IV Q4HP PRN PRN Reason: Pain Last Admin: 07/08/16 09:43 Dose: 0.5 mg Clindamycin Phosphate 600 mg/ (Dextrose) 54 mls @ 100 mls/hr IV Q8H [facility] Last Admin: 07/08/16 07:02 Dose: 100 mls/hr Magnesium Sulfate (Magnesium Sulfate) 2 gm in 50 mls @ 50 mls/hr IV UD PRN PRN Reason: MG = or < 1.7 Acetaminophen (Ofirmev) 1,000 mg in 100 mls @ 200 mls/hr IV Q6HP PRN PRN Reason: PAIN/FEVER > 101 Piperacillin Sod/Tazobactam (Sod 2.25 gm/ Dextrose) 50 mls @ 100 mls/hr IV Q6H [facility] Last Admin: 07/08/16 05:43 Dose: 100 mls/hr Vancomycin HCl 1,000 mg/ (Sodium Chloride) 250 mls @ 250 mls/hr IV Q24H [facility] Last Admin: 07/07/16 11:38 Dose: 250 mls/hr Insulin Human Lispro (Humalog) 0 unit SQ ACHS [facility] PRN Reason: Protocol Last Admin: 07/08/16 08:18 Dose: 2 unit Iron Carb/Multivit/Coates/Folic Acid (Multivitamin W/Minerals) 1 tab PO DAILY [facility] Last Admin: 07/08/16 08:24 Dose: 1 tab Levothyroxine Sodium (Synthroid) 25 mcg PO QAMAC [facility] Last Admin: 07/08/16 08:17 Dose: 25 mcg Metoprolol Tartrate (Lopressor) 75 mg PO BID [facility] Last Admin: 07/08/16 08:24 Dose: 75 mg Mupirocin (Bactroban Crm 2%) 1 gm TOPICAL BID [facility] Last Admin: 07/07/16 21:41 Dose: Not Given Ondansetron HCl (Zofran) 4 mg IV Q4-6HP PRN PRN Reason: Nausea And Vomiting Pantoprazole Sodium (Protonix) 40 mg PO QAMAC [facility] Last Admin: 07/08/16 08:17 Dose: 40 mg Budesonide/Formoterol Fumarate [Symbicort] 160/4.5 Mcg Inhaler 2 dose INH Q12H [facility] Last Admin: 07/08/16 08:26 Dose: Not Given Senna/Docusate Sodium (Senna Plus Tablet) 1 tab PO HS [facility] Last Admin: 07/07/16 21:42 Dose: Not Given Sodium Chloride (Saline Flush) 10 ml IV UD PRN PRN Reason: FLUSH Sodium Chloride (Saline Flush) 10 ml IV Q8 [facility] Last Admin: 07/07/16 21:41 Dose: 10 ml Timolol Maleate (Timoptic 0.5% Ophth Drops) 1 gtt OU DAILY [facility] Last Admin: 07/08/16 08:26 Dose: Not Given Trazodone HCl (Desyrel) 50 mg PO HSP PRN PRN Reason: Insomnia Vancomycin HCl (Vancomycin Per Pharmacy) 1 order IV UD [facility] Warfarin Sodium (Coumadin) 1 mg PO ONCE@1400 ONE Stop: 07/08/16 14:01 Medical - DS: Hosp Hospital course: Mr. Hernandez is a 65 year old male who has a complext medical history presented to the hospital with sepsis, low bp, altered mental stauts, acute on chr renal failure. The patent was recently in [facility] facility and was discharged few weeks ago, after going home it seems that he developed lower extremity swelling and redness, fever, ams. Cellulitits/ Sepsis- Treated with IV fluids and broad spectrum antibiotics Vancomycin and zosyn The patient initially responded to treatment however on d3- 4 noticed some elevated temp, and wbc, Clindamycin was added in light of concern for sterp. Microbiology is negative for any growth. Patient was seen by wound care clinic in light of the significant cellulitis, which has denuded the skin on the left lower leg. Wound care advised bacityracin ointment and bid dressing. X ray of both the legs did not show any significant bony involvement. No gas under the tissues. The patient will likely need ongoing wound care and IV antibiotics. Given his complex needs he will be transferred to [facility] for LTAC care. Patient will need atleast 2 weeks of IV antibiotics, more if needed based on how the wound heals. ONUR on CKD- patient has ckd, due to dm, htn, his baseline creat is 1.3-1.7- on presentation his creat had jumped up to2.7, nephrology consulted, conservative management advised. Patient renal function improved during hospital stay, On discharge the patient creat is 1.2 AMS- Concern for CVA during presentation, CT neg, no e/o stroke, patient was not on anticoagulation intially but later agreed coumadin. On comadin at present with therapeutic INR. CHF/ CAD- Rossy has h/o CABG recently. Last echo shwos levf of 25% in july last year, I am not aware if there has been improvement after CABG, he is on candie , bb, asa, patient is clinically euvolumeic, will resume lasix 40g on discharge DM- On oral medications which can be resumed at the LTAC facility. afib/ Flutter- On amiodarone, Metoprolol for rate control, is intermittenlty in flutter. but rate controlled, anticoagulated with coumadin with therapeutic INR. The rest of the patients medical conditions are stable patient had his rendon removed yesterday, and is able to use urinal but finds it very difficult to use, will place a condom catheter to help patient urinate better. Discharge diagnosis: cellutlitis/ sepsis - Time Spent with Patient Total time spent providing and/or coordinating discharge services: Greater than 30 minutes Medical - DS: Exam - Constitutional Vitals: Vital Signs Temp Pulse Resp BP BP Pulse Ox 07/08/16 08:00 98.1 F 86 18 158/72 97 07/08/16 03:29 98.1 F 79 12 161/78 98 07/07/16 23:58 98.5 F 74 12 162/85 96 07/07/16 20:00 94 07/07/16 19:47 93 07/07/16 19:11 98.0 F 105 H 12 156/80 94 07/07/16 16:00 98.8 F 94 H 18 140/85 93 07/07/16 11:35 97.7 F 20 116/67 94 Intake and Output 07/07/16 07/08/16 07/08/16 21:59 05:59 13:59 Intake Total 804 / 804 704 / 704 Output Total 1401 / 1401 525 / 525 Balance -597 / -597 179 / 179 Intake: IV 104 / 104 104 / 104 Dextrose 5% in Water 50 54 / 54 54 / 54 ml @ 100 mls/hr IV Q8H ALISSA with Cleocin 600 mg Rx#:[id number] Dextrose 5% in Water 50 50 / 50 50 / 50 ml @ 100 mls/hr IV Q6H ALISSA with Zosyn 2.25 gm Rx #:[id number] Oral 700 / 700 600 / 600 Output: Void Amount 1400 / 1400 525 / 525 # of times incontinent of urine Other: Weight 213 lb 8 oz Additional comments: Constitutional; Afebrile, cooperative, alert, not in distress. Eyes- No icterus, No periorbital swelling Ears- Ext ear normal, hearing normal to conversation. Neck- Midline trachea, supple Respiratory system: Air Entry equal on both sides, No crackles or wheezing, no rhonchi. CVS- Rate rhythm irregular, S1,S2 heard, no gallop, no rub. 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 Medical - DS: Data Labs on day of discharge: Labs from last 24 hours 07/08/16 07/08/16 07/08/16 04:25 04:25 04:25 WBC 11.3 H RBC 3.53 L Hgb 10.2 L Hct 31.9 L MCV 90.4 MCH 29.0 MCHC 32.1 RDW 17.5 H Plt Count 210 MPV 9.1 Gran % 78.5 H Lymph % (Auto) 11.0 L [place] % (Auto) 6.7 Eos % (Auto) 3.4 Baso % (Auto) 0.4 Gran # 8.9 H Lymph # 1.2 L [place] # 0.8 Eos # 0.4 Baso # 0 PT 29.5 H INR 2.7 H Sodium 142 Potassium 3.8 Chloride 102 Carbon Dioxide 27 Anion Gap 13.0 BUN 27 H Creatinine 1.2 GFR Calculation 63 Glucose 144 H Uric Acid 6.7 Calcium 8.4 L Phosphorus 3.6 Magnesium 1.9 Total Bilirubin 0.3 Direct Bilirubin < 0.2 GGT 16 AST 20 ALT 13 Alkaline Phosphatase 67 Lactate Dehydrogenase 186 Total Protein 5.6 L Albumin 2.6 L Globulin 3.0 Albumin/Globulin Ratio 0.9 L Triglycerides 66 Preliminary micro results at discharge 07/05/16 11:50 Blood Culture - Preliminary Blood 07/05/16 11:55 Blood Culture - Preliminary Blood Medical - DS: A/P - Patient/Caregiver Discharge Instructions Activity: as per physical therapy, increase activity as tolerated Diet: Cardiac, Consistent Carbohydrate Additional Instructions: IV vancomycin/ Zosyn/ Clindamycin for another 12 days atleast, more if needed as per LTAC physician Manage INR/ Coumadin as per LTAC facility, presently INR is therapeutic. Wound care twice daily with bactroban. Prescriptions: Piperacillin Sodium/Tazobactam [Piperacil-Tazobact 2.25 gm Vl] 2.25 gm IV HS #1 vial Warfarin [Coumadin] 3 mg PO DAILY #1 tablet - Problem Maintenance (1) Acute on chronic renal failure Status: Acute (2) Cellulitis Status: Acute Qualifiers: Site of cellulitis: extremity Site of cellulitis of extremity: lower extremity Laterality: unspecified laterality Qualified Code(s): L03.119 - Cellulitis of unspecified part of limb (3) Systolic CHF with reduced left ventricular function, NYHA class 3 Status: Acute (4) Atrial fibrillation and flutter Status: Chronic (5) Diabetes mellitus Status: Chronic - Follow up Plan Disposition: [facility] Prognosis: Fair Rehab Potential: Fair I certify that the patient requires SNF services: Yes Overall status at discharge: patient is progressing back to baseline Medical - DS: Qual - VTE Deep Vein Thrombosis/Pulmonary Embolism Present on Admission: No
[2016-07-08] MEDS ORDERED: WARFARIN 1 MG TABLET PO ONE (14:00)
== END 2016-07-08 12:30 | DRG 871 ==
LOC: ED 15:16 → MEDSUR 20:00 → ICU 21:55
PROVIDERS: ADMIT Internal Medicine; ATTEND Internal Medicine

== ENCOUNTER 2016-10-10 15:22 | Inpatient (IN) ==
[2016-10-10] MEDS ORDERED: VANCOMYCIN 1,000 MG in 0.9 % SODIUM CHLORIDE 250 ML IV ONE (16:03)
[2016-10-10] MEDS ORDERED: PIPERACILLIN SODIUM/TAZOBACTAM 3.375 GM in DEXTROSE 5% IN WATER 50 ML IV SCH (16:15)
[2016-10-10 17:02] LABS: Basophils # (Auto) 0 K/mcL (0.0-0.3); Basophils % (Auto) 0.4 % (0.0-2.0); Eosinophils # (Auto) 0.1 K/mcL (0.0-0.7); Eosinophils % (Auto) 1.1 % (0.0-7.0); Granulocytes % (Auto) 76.6 % (38.0-78.0); Lymphocytes # (Auto) 1.6 K/mcL (1.5-4.8); Lymphocytes % (Auto) 13.7 % (15.5-49.0); Mean Cell Volume 86.8 fL (80.0-100.0); Mean Corpuscular HGB Conc 32.7 g/dL (31.0-36.0); Mean Corpuscular Hemoglobin 28.4 pg (26.0-34.0); Monocytes % (Auto) 8.2 % (1.0-12.0); Platelet Count 301 K/mcL (140-440); RBC 4.43 M/mcL (4.50-5.90); Red Cell Distribution Width 16.9 % (11.5-14.5)
[2016-10-10 17:21] LABS: ALT/SGPT 19 U/l (0-40); Albumin 2.9 gm/dL (3.2-5.2); Albumin/Globulin Ratio 0.7 (1.0-2.3); Alkaline Phosphatase 94 U/L (39-117); Blood Urea Nitrogen 62 mg/dl (8-23)
--- NOTE | 2016-10-10 17:40 | Emergency Department Note ---
Skin/Abscess/FB HPI - General Chief complaint: Skin/Abscess/Foreign Body Stated complaint: Wound care Time Seen by Provider: 10/10/16 15:27 Source: patient Mode of arrival: ambulatory - History of Present Illness HPI Narrative: Patient sent over from wound clinic. Known diabetic foot ulcers, no feared infected. Actively draining purulent material, left greater than right. No fevers, no Reiger's. General malaise. Recent left femoral artery stent placement, previous right. - Related Data Home Medications Medication Instructions Recorded Confirmed amiodarone 200 mg tablet 200 mg PO QDAY 04/23/15 10/10/16 atorvastatin 10 mg tablet 10 mg PO QHS tab 06/11/15 10/10/16 Allopurinol [Zyloprim] 200 mg PO DAILY 10/10/16 10/10/16 Ascorbic Acid [Vitamin C] 250 mg PO BID 10/10/16 10/10/16 Aspirin [Aspirin EC] 81 mg PO DAILY 10/10/16 10/10/16 Carvedilol [Coreg] 12.5 mg PO BIDCC 10/10/16 10/10/16 Cholecalciferol (Vitamin D3) 2,000 unit PO DAILY 10/10/16 10/10/16 [Vitamin D] Doxycycline Hyclate [Vibramycin] 100 mg PO BID 10/10/16 10/10/16 Finasteride [Proscar] 5 mg PO DAILY 10/10/16 10/10/16 Furosemide [Lasix] 20 mg PO BID 10/10/16 10/10/16 Gabapentin [Neurontin] 300 mg PO QID 10/10/16 10/10/16 HYDROmorphone HCL [Dilaudid] 2 mg PO Q6HP PRN 10/10/16 10/10/16 Insulin Glargine, Human [Lantus] 20 unit SQ DAILY 10/10/16 10/10/16 Magnesium Gluconate 30 mg PO DAILY 10/10/16 10/10/16 Melatonin 6 mg PO DAILY 10/10/16 10/10/16 Misoprostol 100 mcg PO TID 10/10/16 10/10/16 Polyethylene Glycol 3350 17 gm PO DAILY PRN 10/10/16 10/10/16 [Smoothlax] Ranitidine HCl [Acid Kraft [employer] Operator] 150 mg PO DAILY 10/10/16 10/10/16 Spironolactone [Aldactone] 25 mg PO DAILY 10/10/16 10/10/16 Tamsulosin [Flomax] 0.4 mg PO HS 10/10/16 10/10/16 Timolol 0.5% Ophth Drops [Timoptic 1 gtt OD DAILY 10/10/16 10/10/16 0.5% Ophth Drops] Previous Rx's Medication Instructions Recorded glipizide 5 mg tablet 5 mg PO BID #90 tab 09/03/15 Multivit,Ther Iron,Ca,FA & Min 1 tab PO DAILY tablet 07/08/16 [Multivitamin W/Minerals] Warfarin [Coumadin] 3 mg PO DAILY #1 tablet 07/08/16 traZODone HCL [Desyrel] 50 mg PO HSP PRN #0 tablet 07/08/16 Allergies Allergy/AdvReac Type Severity Reaction Status Date / Time Sulfa (Sulfonamide Allergy Intermediate UNKNOWN Verified 09/03/15 13:47 Antibiotics) [SULFA(SULFONAMIDE ANTIBIOTICS)] Review of Systems All systems ED: reviewed and negative except as stated. Past Medical History - Past Medical History Attestation: Yes: The following information was validated with the patient. Medical history: Reports: arthritis, atrial fibrillation, CHF, COPD, coronary artery disease, diabetes, glaucoma, hyperlipidemia, hypertension, renal disease , thyroid disease Surgical history ED: Reports: coronary bypass (CABG), tonsillectomy, other ( peripheral stents) Psychiatric history: Reports: PTSD Family history: Reports: non-contributory - Social History smoking status: Former smoker Alcohol use: Reports: None Drug use: Reports: none Physical Exam - General General appearance: in distress, other (appears older than stated age) - Head Head exam: atraumatic - Eye Eye exam: Present: normal appearance - ENT ENT exam: normal exam, mucous membranes moist - Neck Neck exam: Present: normal inspection. Absent: lymphadenopathy - Chest Chest inspection: Present: normal inspection - Respiratory Respiratory exam: Present: normal lung sounds bilaterally - Cardiovascular Cardiovascular exam: Present: regular rate, irregular rhythm. Absent: systolic murmur - Abdominal Exam Abdominal exam: Present: soft. Absent: tenderness - Extremities Exam Extremities exam: Present: other (pictures reviewed just taken, extensive circumferential active venous stasis dermatitis) - Back Exam Back exam: Present: normal inspection. Absent: CVA tenderness (R), CVA tenderness (L) - Neurological Exam Neurological exam: Present: alert, oriented X3 - Psychiatric Psychiatric exam: Present: normal affect - Skin Skin exam: Present: other (diabetic foot ulcers, left with a large area over the heel active purulent material and drainage, dressed; toes with thready Refill, no gangrene) Course Vital Signs Temperature 97.6 F 10/10/16 15:23 Pulse Rate 86 10/10/16 15:23 Respiratory Rate 22 10/10/16 15:23 Blood Pressure 135/72 10/10/16 15:23 Pulse Oximetry (%) 96 10/10/16 15:23 Temperature 97.6 F 10/10/16 15:23 Pulse Rate 108 H 10/10/16 17:28 Respiratory Rate 22 10/10/16 15:23 Blood Pressure 119/70 10/10/16 17:28 Pulse Oximetry (%) 97 10/10/16 17:28 Skin/Abscess/Foreign Body - Lab Data Lab results reviewed: Yes I reviewed the patient's lab results. Result diagrams: 10/10/16 16:10 10/10/16 16:10 Lab Results 10/10/16 10/10/16 10/10/16 Range/Units 16:10 16:10 16:10 WBC 12.1 H (4.5-11.0) K/mcL RBC 4.43 L (4.50-5.90) M/mcL Hgb 12.6 L (13.5-16.5) g/dL Hct 38.5 L (41.0-55.0) % MCV 86.8 (80.0-100.0) fL MCH 28.4 (26.0-34.0) pg MCHC 32.7 (31.0-36.0) g/dL RDW 16.9 H (11.5-14.5) % Plt Count 301 (140-440) K/mcL MPV 9.0 (7.4-10.4) fL Gran % 76.6 (38.0-78.0) % Lymph % (Auto) 13.7 L (15.5-49.0) % [place] % (Auto) 8.2 (1.0-12.0) % Eos % (Auto) 1.1 (0.0-7.0) % Baso % (Auto) 0.4 (0.0-2.0) % Gran # 9.2 H (1.8-8.0) K/mcL Lymph # 1.6 (1.5-4.8) K/mcL [place] # 1.0 H (0.1-0.9) K/mcL Eos # 0.1 (0.0-0.7) K/mcL Baso # 0 (0.0-0.3) K/mcL PT (11.9-14.5) sec INR (0.9-1.1) VBG Lactic Acid 2.3 H (0.5-2.2) mmol/L Sodium 134 (133-145) mmol/L Potassium 4.7 (3.3-5.1) mmol/L Chloride 90 L (96-108) mmol/L Carbon Dioxide 26 (22-30) mmol/L Anion Gap 18.0 H (8-16) BUN 62 H (8-23) mg/dl Creatinine 2.5 H (0.7-1.2) mg/dl GFR Calculation 26 Glucose 183 H (70-105) mg/dL Calcium 9.2 (8.6-10.4) mg/dl Total Bilirubin 0.5 (0.0-1.0) mg/dL AST 33 (0-37) U/l ALT 19 (0-40) U/l Alkaline Phosphatase 94 (39-117) U/L Total Protein 7.3 (5.9-8.4) gm/dL Albumin 2.9 L (3.2-5.2) gm/dL Globulin 4.4 H (2.2-3.7) gm/dL Albumin/Globulin Ratio 0.7 L (1.0-2.3) 10/10/ Range/Units 16:10 WBC (4.5-11.0) K/mcL RBC (4.50-5.90) M/mcL Hgb (13.5-16.5) g/dL Hct (41.0-55.0) % MCV (80.0-100.0) fL MCH (26.0-34.0) pg MCHC (31.0-36.0) g/dL RDW (11.5-14.5) % Plt Count (140-440) K/mcL MPV (7.4-10.4) fL Gran % (38.0-78.0) % Lymph % (Auto) (15.5-49.0) % [place] % (Auto) (1.0-12.0) % Eos % (Auto) (0.0-7.0) % Baso % (Auto) (0.0-2.0) % Gran # (1.8-8.0) K/mcL Lymph # (1.5-4.8) K/mcL [place] # (0.1-0.9) K/mcL Eos # (0.0-0.7) K/mcL Baso # (0.0-0.3) K/mcL PT 34.0 H (11.9-14.5) sec INR 3.2 H (0.9-1.1) VBG Lactic Acid (0.5-2.2) mmol/L Sodium (133-145) mmol/L Potassium (3.3-5.1) mmol/L Chloride (96-108) mmol/L Carbon Dioxide (22-30) mmol/L Anion Gap (8-16) BUN (8-23) mg/dl Creatinine (0.7-1.2) mg/dl GFR Calculation Glucose (70-105) mg/dL Calcium (8.6-10.4) mg/dl Total Bilirubin (0.0-1.0) mg/dL AST (0-37) U/l ALT (0-40) U/l Alkaline Phosphatase (39-117) U/L Total Protein (5.9-8.4) gm/dL Albumin (3.2-5.2) gm/dL Globulin (2.2-3.7) gm/dL Albumin/Globulin Ratio (1.0-2.3) Disposition Clinical Impression: Abscess of skin or subcutaneous tissue, Lactic acidosis Diabetic foot ulcer Qualifiers: Diabetic foot ulcer location: heel Diabetes mellitus type: type 2 Laterality: left Non-pressure ulcer stage: with fat layer exposed Qualified Code(s): E11.621 - Type 2 diabetes mellitus with foot ulcer; L97.422 - Non-pressure chronic ulcer of left heel and midfoot with fat layer exposed Summary: suspected Pseudomonas; wound cultures completed in wound clinic, blood cultures added Zosyn and vancomycin Admit to hospitalist service, wound care to consult Disposition: Home, Self-Care Referrals: Bandar Faria [Primary Care Provider] -
--- NOTE | 2016-10-10 18:47 | General Surgery Consult Note ---
History of Present Illness Patient information: Note initiated : 10/10/16 at 6:44 pm Service Date, if different from initiated Date: [] Patient: Guy Hernandez 65 y/o M admitted on for Wound care. Chief Complaint: [] Consult date: 10/10/16 Requesting physician: Ariel Frias History of present illness: Patient admitted from ER. Complicated skin and skin structure infection both feet and lower legs, LEFT > RIGHT Patient has FAILED out patient wound care treatment. [facility] will NOT admit patient due to acuity of his illness and need for comprehensive and coordinated medial and wound care for complicated skin and skin structure infection, renal insufficiency, complicated diabetes and back ground of PTSD with poor adherence to physical therapy, wound care and smoking cessation counseling. 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 Spoke at length with her. It is NOT possible for her and other children and grand children to care for patient in home setting. Patient in NEED of hospitalization to correct his underlying medical problems, optimize his care and possible surgical debridement. LATER will request management to WORK WITH and ASSIST patient and his family to find placement for him to recover and rehabilitate. Medications and Allergies Home Medications Medication Instructions Recorded Confirmed Type amiodarone 200 mg tablet 200 mg PO QDAY 04/23/15 10/10/16 History atorvastatin 10 mg tablet 10 mg PO QHS tab 06/11/15 10/10/16 History glipizide 5 mg tablet 5 mg PO BID #90 tab 09/03/15 10/10/16 Rx Multivit,Ther Iron,Ca,FA & Min 1 tab PO DAILY tablet 07/08/16 10/10/16 Rx [Multivitamin W/Minerals] Warfarin [Coumadin] 3 mg PO DAILY #1 tablet 07/08/16 10/10/16 Rx traZODone HCL [Desyrel] 50 mg PO HSP PRN #0 tablet 07/08/16 10/10/16 Rx Allopurinol [Zyloprim] 200 mg PO DAILY 10/10/16 10/10/16 History Ascorbic Acid [Vitamin C] 250 mg PO BID 10/10/16 10/10/16 History Aspirin [Aspirin EC] 81 mg PO DAILY 10/10/16 10/10/16 History Carvedilol [Coreg] 12.5 mg PO BIDCC 10/10/16 10/10/16 History Cholecalciferol (Vitamin D3) 2,000 unit PO DAILY 10/10/16 10/10/16 History [Vitamin D] Doxycycline Hyclate [Vibramycin] 100 mg PO BID 10/10/16 10/10/16 History Finasteride [Proscar] 5 mg PO DAILY 10/10/16 10/10/16 History Furosemide [Lasix] 20 mg PO BID 10/10/16 10/10/16 History Gabapentin [Neurontin] 300 mg PO QID 10/10/16 10/10/16 History HYDROmorphone HCL [Dilaudid] 2 mg PO Q6HP PRN 10/10/16 10/10/16 History Insulin Glargine, Human [Lantus] 20 unit SQ DAILY 10/10/16 10/10/16 History Magnesium Gluconate 30 mg PO DAILY 10/10/16 10/10/16 History Melatonin 6 mg PO DAILY 10/10/16 10/10/16 History Misoprostol 100 mcg PO TID 10/10/16 10/10/16 History Polyethylene Glycol 3350 17 gm PO DAILY PRN 10/10/16 10/10/16 History [Smoothlax] Ranitidine HCl [Acid Pilot Supervisor] 150 mg PO DAILY 10/10/16 10/10/16 History Spironolactone [Aldactone] 25 mg PO DAILY 10/10/16 10/10/16 History Tamsulosin [Flomax] 0.4 mg PO HS 10/10/16 10/10/16 History Timolol 0.5% Ophth Drops [Timoptic 1 gtt OD DAILY 10/10/16 10/10/16 History 0.5% Ophth Drops] Allergies Allergy/AdvReac Type Severity Reaction Status Date / Time Sulfa (Sulfonamide Allergy Intermediate UNKNOWN Verified 09/03/15 13:47 Antibiotics) [SULFA(SULFONAMIDE ANTIBIOTICS)] Exam Temp Pulse Resp BP Pulse Ox 97.6 F 100 H 13 119/73 100 10/10/16 15:23 10/10/16 18:00 10/10/16 18:00 10/10/16 18:00 10/10/16 18:00 - General physical appearance severe pain, chronically ill, other (unintentional weight loss ? amount and severe DECONDITIONING. ) - Eyes PERRL, normal ocular movement - ENT normal pinna, normal nares, normal mucosa, no congestion, other (Missing teeth / poor dentition) - Head Head exam IM: Present: atraumatic, normal inspection, normocephalic - Neck no masses, no bruits, trachea midline, no lymphadectomy, no venous distension - Cardiovascular Cardiovascular exam IM: Present: normal rate and rhythm - Respiratory normal expansion, normal respiratory effort, clear to auscultation - Abdomen Abdomen: Present: soft, non tender, bowel sounds - Genitourinary Present: normal penis with no external lesions - Integumentary Present: other (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 Foul odor, dense adherent necrotic skin patches and green, watery blood tinged oozing from skin surface. ) - Neurologic Present: normal coordination, normal sensation, other (Diabetic neuropathy both feet and lower legs. CONTINENT of urine and stools.) - Musculoskeletal Present: other (Maily whhel chair bound , but moves all extremities and WILL BENEFIT from Physical Therapy consult / treatment. ) - Psychiatric Present: oriented to time, oriented to person, oriented to place, speech is normal, memory intact, other (Underlying psycho social issues . Patient tells me that he completed school and ONE year of college before enlisting for [employer]. On further conversation and enquiry, he is NOW keen to get better and move on. ) Results - Labs 10/10/16 16:10 10/10/16 16:10 Abnormal lab results 10/10/16 10/10/16 10/10/16 Range/Units 16:10 16:10 16:10 WBC 12.1 H (4.5-11.0) K/mcL RBC 4.43 L (4.50-5.90) M/mcL Hgb 12.6 L (13.5-16.5) g/dL Hct 38.5 L (41.0-55.0) % RDW 16.9 H (11.5-14.5) % Lymph % (Auto) 13.7 L (15.5-49.0) % Gran # 9.2 H (1.8-8.0) K/mcL [place] # 1.0 H (0.1-0.9) K/mcL PT (11.9-14.5) sec INR (0.9-1.1) VBG Lactic Acid 2.3 H (0.5-2.2) mmol/L Chloride 90 L (96-108) mmol/L Anion Gap 18.0 H (8-16) BUN 62 H (8-23) mg/dl Creatinine 2.5 H (0.7-1.2) mg/dl Glucose 183 H (70-105) mg/dL Albumin 2.9 L (3.2-5.2) gm/dL Globulin 4.4 H (2.2-3.7) gm/dL Albumin/Globulin Ratio 0.7 L (1.0-2.3) 10/10/16 Range/Units 16:10 WBC (4.5-11.0) K/mcL RBC (4.50-5.90) M/mcL Hgb (13.5-16.5) g/dL Hct (41.0-55.0) % RDW (11.5-14.5) % Lymph % (Auto) (15.5-49.0) % Gran # (1.8-8.0) K/mcL [place] # (0.1-0.9) K/mcL PT 34.0 H (11.9-14.5) sec INR 3.2 H (0.9-1.1) VBG Lactic Acid (0.5-2.2) mmol/L Chloride (96-108) mmol/L Anion Gap (8-16) BUN (8-23) mg/dl Creatinine (0.7-1.2) mg/dl Glucose (70-105) mg/dL Albumin (3.2-5.2) gm/dL Globulin (2.2-3.7) gm/dL Albumin/Globulin Ratio (1.0-2.3) Diabetes panel 10/10/16 Range/Units 16:10 Sodium 134 (133-145) mmol/L Potassium 4.7 (3.3-5.1) mmol/L Chloride 90 L (96-108) mmol/L Carbon Dioxide 26 (22-30) mmol/L BUN 62 H (8-23) mg/dl Creatinine 2.5 H (0.7-1.2) mg/dl Glucose 183 H (70-105) mg/dL Calcium 9.2 (8.6-10.4) mg/dl AST 33 (0-37) U/l ALT 19 (0-40) U/l Alkaline Phosphatase 94 (39-117) U/L Total Protein 7.3 (5.9-8.4) gm/dL Albumin 2.9 L (3.2-5.2) gm/dL Calcium panel 10/10/16 Range/Units 16:10 Calcium 9.2 (8.6-10.4) mg/dl Albumin 2.9 L (3.2-5.2) gm/dL Pituitary panel 10/10/16 Range/Units 16:10 Sodium 134 (133-145) mmol/L Potassium 4.7 (3.3-5.1) mmol/L Chloride 90 L (96-108) mmol/L Carbon Dioxide 26 (22-30) mmol/L BUN 62 H (8-23) mg/dl Creatinine 2.5 H (0.7-1.2) mg/dl Glucose 183 H (70-105) mg/dL Calcium 9.2 (8.6-10.4) mg/dl Adrenal panel 10/10/16 Range/Units 16:10 Sodium 134 (133-145) mmol/L Potassium 4.7 (3.3-5.1) mmol/L Chloride 90 L (96-108) mmol/L Carbon Dioxide 26 (22-30) mmol/L BUN 62 H (8-23) mg/dl Creatinine 2.5 H (0.7-1.2) mg/dl Glucose 183 H (70-105) mg/dL Calcium 9.2 (8.6-10.4) mg/dl Total Bilirubin 0.5 (0.0-1.0) mg/dL AST 33 (0-37) U/l ALT 19 (0-40) U/l Alkaline Phosphatase 94 (39-117) U/L Total Protein 7.3 (5.9-8.4) gm/dL Albumin 2.9 L (3.2-5.2) gm/dL All other labs normal. Assessment and Plan (1) Abscess of skin or subcutaneous tissue Status: Acute Qualifiers: Site of cutaneous abscess: extremity Site of cutaneous abscess of extremity : lower extremity Laterality: unspecified laterality Qualified Code(s): L02.419 - Cutaneous abscess of limb, unspecified (2) Diabetic foot ulcer Status: Acute Priority: Medium Qualifiers: Diabetic foot ulcer location: toe Diabetes mellitus type: type 2 Laterality: unspecified laterality Non-pressure ulcer stage: with fat layer exposed Qualified Code(s): E11.621 - Type 2 diabetes mellitus with foot ulcer ; L97.502 - Non-pressure chronic ulcer of other part of unspecified foot with fat layer exposed (3) Lactic acidosis BILATERAL feet, heels , ankle and leg involvement. PLAN; NUTRITION REPLETION / DIABETES TEACHING / SMOKING CESSATION / PHYSICAL THERAPY / WOUND CARE I V Antibiotics, dressing changes twice a day MONITOR RESPONSE TO TREATMENT AND assess for OR surgical debridement in next 48-72 hours SPOKE with nursing staff and Hospitalist Dr. Frias, Hospitalist Physician at length. Following patient from Wound care point of view. Status: Acute (4) Acute on chronic renal failure Status: Acute (5) Cellulitis Status: Acute Priority: High Qualifiers: Site of cellulitis: extremity Site of cellulitis of extremity: lower extremity Laterality: unspecified laterality Qualified Code(s): L03.119 - Cellulitis of unspecified part of limb
[2016-10-10] MEDS: 0.9 % SODIUM CHLORIDE 1,000 ML IV SCH (19:45)
[2016-10-10] MEDS ORDERED: BACITRACIN 50,000 UNIT VIAL IR ONE (20:25)
[2016-10-10] MEDS ORDERED: SODIUM CHLORIDE IRRIG SOLUTION 500 ML BOTTLE IRR ONE (20:25)
[2016-10-10] MEDS ORDERED: CLINDAMYCIN 600 MG/4 ML VIAL ONE (20:33)
[2016-10-10] MEDS ORDERED: GENTAMICIN SULFATE 80 MG/2 ML VIAL ONE (20:33)
[2016-10-10] MEDS ORDERED: HYDROmorphone 2 MG TABLET ONE (20:47)
[2016-10-10] MEDS: KETOCONAZOLE 2% TOP CRM 15GM TUBE TOPICAL SCH (21:45)
[2016-10-11] MEDS ORDERED: HYDROmorphone 2 MG TABLET ONE (03:53)
[2016-10-11] MEDS: 0.9 % SODIUM CHLORIDE 1,000 ML IV SCH ×3 (03:55→07:32)
[2016-10-11] MEDS ORDERED: ACETAMINOPHEN 325 MG TABLET PO PRN (08:49)
[2016-10-11] MEDS ORDERED: IPRATROPIUM/ALBUTEROL 3 ML AMPUL.NEB NEB PRN (08:49)
[2016-10-11] MEDS ORDERED: VANCOMYCIN PER PHARMACY IV SCH (08:49)
[2016-10-11] MEDS ORDERED: POTASSIUM CHLORIDE 20 MEQ PACKET PO PRN (08:49)
[2016-10-11] MEDS ORDERED: ACETAMINOPHEN 1,000 MG/100 ML BOTTLE IV PRN (08:49)
[2016-10-11] MEDS ORDERED: MAGNESIUM SULFATE 2 GM/50 ML BAG IV PRN (08:49)
[2016-10-11] MEDS ORDERED: ONDANSETRON 4 MG/2 ML VIAL IV PRN (08:49)
[2016-10-11] MEDS ORDERED: POLYETHYLENE GLYCOL 3350 17 GM PACKET PO PRN (08:54)
[2016-10-11] MEDS ORDERED: traZODone HCL 50 MG TABLET PO PRN ×2 (08:54→21:00)
[2016-10-11] MEDS ORDERED: DEXTROSE 50% 50 ML VIAL IV PRN (08:58)
[2016-10-11] MEDS ORDERED: WARFARIN 3 MG TABLET PO SCH (09:00)
[2016-10-11] MEDS ORDERED: CLOPIDOGREL 75 MG TABLET PO ONE (09:51)
--- NOTE | 2016-10-11 10:00 | Internal Med Progress Note ---
Medical - PN: Subj Patient information: Note initiated : 10/11/16 at 9:57 am Service Date, if different from initiated Date: [] Patient: Guy Hernandez 65 y/o M admitted on 10/10/16 for Wound care. Chief Complaint: [] Interval history: 10/10- 65-year-old with history of DM type 2/PVD/nYHA class III systolic heart failure admitted with diabetic nonhealing lower extremity wound/cellulitis and sepsis. Wound care consulted. broad antibiotic coverage instituted including vancomycin/Zosyn. admitted to telemetry. Underlying atrial fibrillation on amiodarone/Coreg. Continue close monitoring 10/11- white count 12,000. Creatinine 2.5. no overnight fever or chills. Complains of left index finger proximal interphalangeal joint swelling and pain. history of gout. Started on prednisone. Start Plavix in light of recent lower extremity stenting. Continue broad antibiotic coverage. Await wound care recommendations. continue telemetry monitoring. restart home medications. - Constitutional Vitals: Vital Signs Temp Pulse Resp BP Pulse Ox 98.5 F 112 H 16 123/63 94 10/11/16 07:33 10/11/16 07:33 10/11/16 07:33 10/11/16 07:33 10/11/16 07:33 Period Temp Pulse Resp BP Sys/Zee Pulse Ox Last 24 Hr 97.6 F-99.5 F 100-112 12-16 106-135/63-72 94-100 Intake and Output 10/10/16 10/11/16 10/11/16 21:59 05:59 13:59 Intake Total 250 / 300 1050 / 1050 Output Total 550 / 550 2300 / 2300 Balance -300 / -250 -1250 / -1250 Weight 208 lb 1.6 oz Intake & Output: Intake & Output 10/10/16 10/11/16 10/11/16 21:59 05:59 13:59 Intake Total 250 / 300 1050 / 1050 Output Total 550 / 550 2300 / 2300 Balance -300 / -250 -1250 / -1250 Weight 208 lb 1.6 oz Intake: IV 250 / 250 1000 / 1000 Sodium Chloride 0.9% 1, 1000 / 1000 000 ml @ 250 mls/hr IV . Q4H [facility] Rx#:[id number] Vancomycin 1,000 mg In 250 / 250 Sodium Chloride 0.9% 250 ml @ 250 mls/hr IV ONCE ONE Rx#:[id number] Oral 50 / 50 Output: Void Amount 550 / 550 2300 / 2300 Other: # Voids 1 General appearance: cooperative, no acute distress Exam: right index finger swelling Nonlabored breathing Bilateral lower extremity stasis changes/heel ulcer nondistended abdomen Medical - PN: Obj Da - Labs CBC & Chem 7: 10/10/16 16:10 10/10/16 16:10 Meds: Medications Acetaminophen (Tylenol) 650 mg PO Q4-6HP PRN PRN Reason: PAIN/FEVER > 101 Albuterol/Ipratropium (Duoneb) 3 ml NEB Q4HP PRN PRN Reason: Shortness Of Breath Allopurinol (Zyloprim) 200 mg PO DAILY [facility] Amiodarone HCl (Cordarone) 200 mg PO QDAY [facility] Aspirin (Aspirin) 81 mg PO DAILY ALISSA Atorvastatin Calcium (Lipitor) 10 mg PO HS ALISSA Carvedilol (Coreg) 12.5 mg PO BIDCC [facility] Clopidogrel Bisulfate (Plavix) 75 mg PO ONCE ONE Stop: 10/11/16 09:52 Cyanocobalamin (Vitamin B-12) 1,000 mcg PO BID ALISSA Stop: 10/15/16 21:01 Diagnostic Test (Pha) (Accu-Chek) 1 each FS ONCE ONE Stop: 10/11/16 08:50 Docusate Sodium (Colace) 100 mg PO BID ALISSA Famotidine (Pepcid) 20 mg PO DAILY ALISSA Finasteride (Proscar) 5 mg PO DAILY ALISSA Folic Acid (Folic Acid) 1 mg PO DAILY ALISSA Furosemide (Lasix) 20 mg PO BID ALISSA Gabapentin (Neurontin) 300 mg PO QID [facility] Glipizide (Glucotrol) 5 mg PO BIDAC AL[facility]SA Heparin Sodium (Porcine) (Heparin) 5,000 unit SQ Q12 ALISSA Hydromorphone HCl (Dilaudid) 2 mg PO Q6HP PRN PRN Reason: Pain Piperacillin Sod/Tazobactam (Sod 3.375 gm/ Dextrose) 50 mls @ 100 mls/hr IV ONCE ALISSA Stop: 10/10/16 16:44 Last Infusion: 10/10/16 17:26 Dose: Infused Sodium Chloride (Sodium Chloride 0.9%) 1,000 mls @ 250 mls/hr IV .Q4H [facility] Last Admin: 10/11/16 07:32 Dose: Not Given Magnesium Sulfate (Magnesium Sulfate) 2 gm in 50 mls @ 50 mls/hr IV UD PRN PRN Reason: MG = or < 1.7 Acetaminophen (Ofirmev) 1,000 mg in 100 mls @ 200 mls/hr IV Q6HP PRN PRN Reason: PAIN/FEVER > 101 Piperacillin Sod/Tazobactam (Sod 2.25 gm/ Dextrose) 50 mls @ 100 mls/hr IV Q6H [facility] Vancomycin HCl 1,500 mg/ (Sodium Chloride) 500 mls @ 333.3 mls/hr IV DAILY@ 1000 [facility] Insulin Glargine (Lantus) 20 unit SQ DAILY [facility] Iron Carb/Multivit/[place]/Folic Acid (Multivitamin W/Minerals) 1 tab PO DAILY [facility] Ketoconazole (Nizoral 2% Top Crm) 1 dose TOPICAL BID [facility] Last Admin: 10/10/16 21:45 Dose: 1 dose Misoprostol (Cytotec) 100 mcg PO TIDCC [facility] Morphine Sulfate (Morphine) 2 - 4 mg IV Q4-6HP PRN PRN Reason: Pain Ondansetron HCl (Zofran) 4 mg IV Q4-6HP PRN PRN Reason: Nausea And Vomiting Magnesium Gluconate [Magnesium Gluconate ] 30 Mg Tablet 1 dose PO DAILY [facility] Melatonin [Melatonin (] 6 Mg Tablet) 1 dose PO HSP PRN PRN Reason: Insomnia Polyethylene Glycol (Miralax) 17 gm PO DAILY PRN PRN Reason: Constipation Potassium Chloride (Klor-Con) 40 meq PO DAILYP PRN PRN Reason: K+ < 3.5 Prednisone (Prednisone) 10 mg PO QAC [facility] Senna/Docusate Sodium (Senna Plus Tablet) 1 tab PO HS [facility] Sodium Chloride (Saline Flush) 10 ml IV Q8 [facility] Spironolactone (Aldactone) 25 mg PO DAILY [facility] Tamsulosin HCl (Flomax) 0.4 mg PO HS [facility] Timolol Maleate (Timoptic 0.5% Ophth Drops) 1 gtt OD DAILY [facility] Trazodone HCl (Desyrel) 50 mg PO HSP PRN PRN Reason: Insomnia Vancomycin HCl (Vancomycin Per Pharmacy) 1 order IV UD [facility] Warfarin Sodium (Coumadin Per Pharmacy) 1 order PO DAILY@1400 [facility] Medical - PN: A/P - Time Spent With Patient Total time spent is greater than 50% in coordination of care (as documented) at patient's floor/unit and/or counseling patient: 25 - 35 minutes (1) Diabetic foot ulcer Status: Acute Assessment and plan: * diabetic foot ulcer with necrotizing cellulitis-on Zosyn and vancomycin. Wound care consulted. * Severe sepsis secondary to above-Continue antibiotic coverage and closing right monitoring * acute gouty arthritis-Start prednisone. continue home dose allopurinol * DM type II on basal prandial insulin/sulfonylurea * Chronic kidney disease with baseline. Creatinine 2.5 * NYHA class III systolic heart failure EF 25%-avoid fluid overload. Restart home dose beta e[place]/spironolactone * glaucoma on timolol * PVD with recent stenting at [place] 10/08 on aspirin/Plavix * BPH on tamsulosin * A. fib on amiodarone/Coreg * hyperlipidemia and statin * History of CVA prophylaxis on Coumadin INR therapeutic * Chronic pain on hydromorphone at home dose * full CODE STATUS Plan * Continue broad antibiotic coverage * wound management per Dr. Rojo * steroids for acute flare * Pre-existing medical condition management as above * physical therapy * Case management to arrange SNF transfer * telemetry monitoring Current Visit: Yes Medical - PN: Qual - VTE Deep Vein Thrombosis/Pulmonary Embolism Present on Admission: No
[2016-10-11] MEDS: GABAPENTIN 300 MG CAPSULE PO SCH ×5 (10:17→21:09)
[2016-10-11] MEDS: AMIODARONE HCL 200 MG TABLET PO SCH (10:17)
[2016-10-11] MEDS: FINASTERIDE 5 MG TABLET PO SCH (10:17)
[2016-10-11] MEDS: MISOPROSTOL 100 MCG TABLET PO SCH ×2 (10:19→16:52)
[2016-10-11] MEDS: SPIRONOLACTONE 25 MG TABLET PO SCH (10:19)
[2016-10-11] MEDS: HYDROmorphone 2 MG TABLET PO PRN ×2 (10:20→21:09)
[2016-10-11] MEDS: FAMOTIDINE 20 MG TABLET PO SCH (10:22)
[2016-10-11] MEDS: FUROSEMIDE 20 MG TABLET PO SCH ×2 (10:22→21:09)
[2016-10-11] MEDS: ASPIRIN 81 MG TAB.CHEW PO SCH (10:22)
[2016-10-11] MEDS: CYANOCOBALAMIN (VITAMIN B-12) 500 MCG TABLET PO SCH ×2 (10:23→21:09)
[2016-10-11] MEDS: FOLIC ACID 1 MG TABLET PO SCH (10:24)
[2016-10-11] MEDS: DOCUSATE SODIUM 100 MG CAPSULE PO SCH ×2 (10:24→21:09)
[2016-10-11] MEDS: ALLOPURINOL 100 MG TABLET PO SCH (10:24)
[2016-10-11] MEDS: HEPARIN 5,000 UNIT/ML VIAL SQ SCH ×2 (10:27→21:10)
[2016-10-11] MEDS: KETOCONAZOLE 2% TOP CRM 15GM TUBE TOPICAL SCH ×3 (10:28→21:10)
[2016-10-11] MEDS: INSULIN GLARGINE, HUMAN 1 UNIT/0.01 ML SQ SCH (10:28)
[2016-10-11] MEDS: TIMOLOL 0.5% OPHTH DROPS BOTTLE 5ML OD SCH (10:29)
[2016-10-11] MEDS: PIPERACILLIN SODIUM/TAZOBACTAM 2.25 GM in DEXTROSE 5% IN WATER 50 ML IV SCH ×4 (10:30→23:49)
[2016-10-11] MEDS: MAGNESIUM GLUCONATE 30 MG PO SCH (10:31)
--- NOTE | 2016-10-11 11:18 | General Surgery Progress Note ---
Subjective Patient reports: other (Cheerful this mornig, BUT tearful at times about being sick . No overnite events. ) Narrative: Note initiated : 10/11/16 at 11:15 am Service Date, if different from initiated Date: [] Patient: Guy Hernandez 65 y/o M admitted on 10/10/16 for Wound care. Chief Complaint: [] Objective Temp Pulse Resp BP Pulse Ox 98.5 F 112 H 16 123/63 94 10/11/16 07:33 10/11/16 07:33 10/11/16 07:33 10/11/16 07:33 10/11/16 07:33 No fever. HD stable. No acute changes in MIAH. L/E Dressings changes. wound swab taken for culture and sensitivity Right foot and between toes. PLAN ; Continue current treatment. Reassess tomorrow AM. - Additional Data Intake & Output - Last 24 hours: Intake & Output 10/09/16 10/10/16 10/11/16 10/12/16 05:59 05:59 05:59 05:59 Intake Total 1300 / 1350 Output Total 2850 / 2850 Balance -1550 / -1500 Weight 208 lb 1.6 oz - Labs 10/10/16 16:10 10/10/16 16:10 Assessment and Plan (1) Abscess of skin or subcutaneous tissue Status: Acute Current Visit: Yes (2) Diabetic foot ulcer Status: Acute Current Visit: Yes (3) Lactic acidosis Status: Acute Current Visit: Yes (4) Acute on chronic renal failure Status: Acute Current Visit: No (5) Cellulitis Status: Acute Current Visit: No - Time Spent With Patient Total time spent is greater than 50% in coordination of care (as documented) at patient's floor/unit and/or counseling patient:
[2016-10-11] MEDS: glipiZIDE 5 MG TABLET PO SCH ×2 (11:20→16:52)
[2016-10-11] MEDS: MULTIVIT,THER IRON,CA,FA & MIN 1 TABLET PO SCH (11:21)
[2016-10-11] MEDS: VANCOMYCIN 1,500 MG in 0.9 % SODIUM CHLORIDE 500 ML IV SCH (11:21)
[2016-10-11] MEDS: INSULIN LISPRO 1 UNIT/0.01 ML UNIT SQ SCH ×3 (12:14→21:17)
[2016-10-11] MEDS: 0.9 % SODIUM CHLORIDE 10 ML SYRINGE IV SCH ×2 (14:39→21:10)
[2016-10-11] MEDS: CARVEDILOL 12.5 MG TABLET PO SCH (16:52)
[2016-10-11 18:03] LABS: Hemoglobin A1C 8.1 % HGB (4.0-6.0)
[2016-10-11] MEDS ORDERED: MELATONIN 6 MG PO PRN (21:00)
[2016-10-11] MEDS: SENNOSIDES/DOCUSATE SODIUM 1 TAB TABLET PO SCH (21:09)
[2016-10-11] MEDS: TAMSULOSIN 0.4 MG CAPSULE PO SCH (21:09)
[2016-10-11] MEDS: ATORVASTATIN 20 MG TABLET PO SCH (21:09)
[2016-10-12] MEDS: PIPERACILLIN SODIUM/TAZOBACTAM 2.25 GM in DEXTROSE 5% IN WATER 50 ML IV SCH ×3 (05:44→17:16)
[2016-10-12] MEDS: 0.9 % SODIUM CHLORIDE 10 ML SYRINGE IV SCH ×3 (05:44→22:20)
[2016-10-12 05:55] LABS: Mean Cell Volume 87.9 fL (80.0-100.0); Mean Corpuscular HGB Conc 32.6 g/dL (31.0-36.0); Mean Corpuscular Hemoglobin 28.7 pg (26.0-34.0); Platelet Count 261 K/mcL (140-440); RBC 3.86 M/mcL (4.50-5.90); Red Cell Distribution Width 16.4 % (11.5-14.5)
[2016-10-12 06:17] LABS: ALT/SGPT 14 U/l (0-40); Albumin 2.4 gm/dL (3.2-5.2); Albumin/Globulin Ratio 0.7 (1.0-2.3); Alkaline Phosphatase 72 U/L (39-117); Bilirubin,Direct < 0.2 mg/dL (0.0-0.3); Blood Urea Nitrogen 37 mg/dl (8-23); Gamma Glutamyl Transpeptidase 13 U/L (8-61); Uric Acid 7.2 mg/dL (2.5-8.0)
[2016-10-12 06:30] LABS: Anisocytosis 1+ (NONE SEEN); Eosinophils % (Manual) 8 % (0-7); Lymphocytes % 27 % (15-49); Monocytes % (Manual) 7 % (1-12); Platelet Estimate NORMAL (NORMAL); RBC Morphology ABNORM (NORMAL); Segmented Neutrophils % 58 % (38-78)
[2016-10-12] MEDS: glipiZIDE 5 MG TABLET PO SCH ×2 (06:51→17:19)
[2016-10-12] MEDS: MISOPROSTOL 100 MCG TABLET PO SCH ×3 (06:51→17:19)
[2016-10-12] MEDS: CARVEDILOL 12.5 MG TABLET PO SCH ×2 (06:52→17:19)
[2016-10-12] MEDS: HYDROmorphone 2 MG TABLET PO PRN ×2 (06:52→18:41)
[2016-10-12] MEDS: INSULIN LISPRO 1 UNIT/0.01 ML UNIT SQ SCH ×4 (07:11→20:22)
[2016-10-12] MEDS: CYANOCOBALAMIN (VITAMIN B-12) 500 MCG TABLET PO SCH ×2 (08:55→20:23)
[2016-10-12] MEDS: INSULIN GLARGINE, HUMAN 1 UNIT/0.01 ML SQ SCH (08:55)
[2016-10-12] MEDS: FOLIC ACID 1 MG TABLET PO SCH (08:55)
[2016-10-12] MEDS: FUROSEMIDE 20 MG TABLET PO SCH ×2 (08:56→20:23)
[2016-10-12] MEDS: FAMOTIDINE 20 MG TABLET PO SCH (08:56)
[2016-10-12] MEDS: MULTIVIT,THER IRON,CA,FA & MIN 1 TABLET PO SCH (08:56)
[2016-10-12] MEDS: AMIODARONE HCL 200 MG TABLET PO SCH (08:56)
[2016-10-12] MEDS: SPIRONOLACTONE 25 MG TABLET PO SCH (08:56)
[2016-10-12] MEDS: ASPIRIN 81 MG TAB.CHEW PO SCH ×2 (08:56→15:57)
[2016-10-12] MEDS: DOCUSATE SODIUM 100 MG CAPSULE PO SCH ×2 (08:56→20:23)
[2016-10-12] MEDS: ALLOPURINOL 100 MG TABLET PO SCH (08:56)
[2016-10-12] MEDS: FINASTERIDE 5 MG TABLET PO SCH (08:56)
[2016-10-12] MEDS: GABAPENTIN 300 MG CAPSULE PO SCH ×4 (08:57→20:23)
[2016-10-12] MEDS: predniSONE 10 MG TABLET PO SCH (08:57)
[2016-10-12] MEDS: CLOPIDOGREL 75 MG TABLET PO SCH (08:57)
[2016-10-12] MEDS: KETOCONAZOLE 2% TOP CRM 15GM TUBE TOPICAL SCH ×2 (08:58→21:05)
[2016-10-12] MEDS ORDERED: ASPIRIN 81 MG TAB.CHEW ONE (09:18)
[2016-10-12] MEDS: VANCOMYCIN 1,500 MG in 0.9 % SODIUM CHLORIDE 500 ML IV SCH (10:10)
--- NOTE | 2016-10-12 10:27 | Internal Med Progress Note ---
Medical - PN: Subj Patient information: Note initiated : 10/12/16 at 10:27 am Service Date, if different from initiated Date: [] Patient: Guy Hernandez 65 y/o M admitted on 10/10/16 for Wound care. Chief Complaint: [] Interval history: 10/10- 65-year-old with history of DM type 2/PVD/nYHA class III systolic heart failure admitted with diabetic nonhealing lower extremity wound/cellulitis and sepsis. Wound care consulted. broad antibiotic coverage instituted including vancomycin/Zosyn. admitted to telemetry. Underlying atrial fibrillation on amiodarone/Coreg. Continue close monitoring 10/11- white count 12,000. Creatinine 2.5. no overnight fever or chills. Complains of left index finger proximal interphalangeal joint swelling and pain. history of gout. Started on prednisone. Start Plavix in light of recent lower extremity stenting. Continue broad antibiotic coverage. Await wound care recommendations. continue telemetry monitoring. restart home medications. 10/12- ongoing wound care/antibiotics. Patient doing better. white count at 12.4. Afebrile. improved gout flare on prednisone. Rate controlled. INR therapeutic. 10/13- no overnight events. Continue antibiotics. Place PICC line. Anticipate 14 days IV antibiotics. Wound management per Dr. Rojo. - Constitutional Vitals: Vital Signs Temp Pulse Resp BP Pulse Ox 98.6 F 105 H 18 99/48 90 10/12/16 06:34 10/12/16 04:00 10/12/16 06:34 10/12/16 06:34 10/12/16 07:30 Period Temp Pulse Resp BP Sys/Zee Pulse Ox Last 24 Hr 98.1 F-98.7 F 89-109 16-20 99-117/48-72 90-97 Intake and Output 10/11/16 10/12/16 10/12/16 21:59 05:59 13:59 Intake Total 360 / 360 450 / 450 480 / 480 Output Total 901 / 901 625 / 625 Balance 360 / 360 -451 / -451 -145 / -145 Weight 207 lb Intake & Output: Intake & Output 10/11/16 10/12/16 10/12/16 21:59 05:59 13:59 Intake Total 360 / 360 450 / 450 480 / 480 Output Total 901 / 901 625 / 625 Balance 360 / 360 -451 / -451 -145 / -145 Weight 207 lb Intake: IV 100 / 100 50 / 50 Zosyn 2.25 gm In Dextrose 100 / 100 50 / 50 5% in Water 50 ml @ 100 mls/hr IV Q6H [facility] Rx#: [id number] Oral 260 / 260 400 / 400 360 / 360 GI Tube Flush 120 / 120 Output: Void Amount 900 / 900 625 / 625 # of times incontinent of urine Other: Meal Dinner Percent of Meal Consumed 50% Feeding Ability Assist with Tray Set Up # Voids 1 Medical - PN: Obj Da - Labs CBC & Chem 7: 10/13/16 05:00 10/13/16 05:00 Labs: Abnormal Lab Results 10/12/16 10/12/16 10/12/16 05:10 05:10 05:10 WBC 12.4 H RBC 3.86 L Hgb 11.1 L Hct 33.9 L RDW 16.4 H Eosinophils % (Manual) 8 H RBC Morphology Abnorm A Anisocytosis 1+ A PT 34.2 H INR 3.2 H BUN 37 H Creatinine 1.8 H Glucose 42 L Calcium 8.5 L Albumin 2.4 L Albumin/Globulin Ratio 0.7 L 10/11/16 09:25 WBC RBC Hgb Hct RDW Eosinophils % (Manual) RBC Morphology Anisocytosis PT 35.1 H INR 3.3 H BUN Creatinine Glucose Calcium Albumin Albumin/Globulin Ratio Meds: Medications Acetaminophen (Tylenol) 650 mg PO Q4-6HP PRN PRN Reason: PAIN/FEVER > 101 Albuterol/Ipratropium (Duoneb) 3 ml NEB Q4HP PRN PRN Reason: Shortness Of Breath Allopurinol (Zyloprim) 200 mg PO DAILY [facility] Last Admin: 10/12/16 08:56 Dose: 200 mg Amiodarone HCl (Cordarone) 200 mg PO QDAY [facility] Last Admin: 10/12/16 08:56 Dose: 200 mg Atorvastatin Calcium (Lipitor) 10 mg PO HS [facility] Last Admin: 10/11/16 21:09 Dose: 10 mg Carvedilol (Coreg) 12.5 mg PO BIDCC [facility] Last Admin: 10/12/16 06:52 Dose: 12.5 mg Clopidogrel Bisulfate (Plavix) 75 mg PO DAILY [facility] Last Admin: 10/12/16 08:57 Dose: 75 mg Cyanocobalamin (Vitamin B-12) 1,000 mcg PO BID [facility] Stop: 10/15/16 21:01 Last Admin: 10/12/16 08:55 Dose: 1,000 mcg Dextrose (Dextrose 50%) 0 ml IV UD PRN PRN Reason: Hypoglycemia Diagnostic Test (Pha) (Accu-Chek) 1 each FS ACHS [facility] Last Admin: 10/12/16 07:10 Dose: 1 each Docusate Sodium (Colace) 100 mg PO BID [facility] Last Admin: 10/12/16 08:56 Dose: 100 mg Famotidine (Pepcid) 20 mg PO DAILY [facility] Last Admin: 10/12/16 08:56 Dose: 20 mg Finasteride (Proscar) 5 mg PO DAILY [facility] Last Admin: 10/12/16 08:56 Dose: 5 mg Folic Acid (Folic Acid) 1 mg PO DAILY [facility] Last Admin: 10/12/16 08:55 Dose: 1 mg Furosemide (Lasix) 20 mg PO BID [facility] Last Admin: 10/12/16 08:56 Dose: 20 mg Gabapentin (Neurontin) 300 mg PO QID [facility] Last Admin: 10/12/16 08:57 Dose: 300 mg [facility]otrol) [facility] Last Admin: 10/12/16 06:51 Dose: 5 mg Hydromorphone HCl (Dilaudid) 2 mg PO Q6HP PRN PRN Reason: Pain Last Admin: 10/12/16 06:52 Dose: 2 mg Magnesium Sulfate (Magnesium Sulfate) 2 gm in 50 mls @ 50 mls/hr IV UD PRN PRN Reason: MG = or < 1.7 Acetaminophen (Ofirmev) 1,000 mg in 100 mls @ 200 mls/hr IV Q6HP PRN PRN Reason: PAIN/FEVER > 101 Piperacillin Sod/Tazobactam (Sod 2.25 gm/ Dextrose) 50 mls @ 100 mls/hr IV Q6H [facility] Last Admin: 10/12/16 05:44 Dose: 100 mls/hr Vancomycin HCl 1,500 mg/ (Sodium Chloride) 500 mls @ 333.3 mls/hr IV DAILY@ 1000 [facility] Last Admin: 10/12/16 10:10 Dose: 333 mls/hr Insulin Glargine (Lantus) 20 unit SQ DAILY [facility] Last Admin: 10/12/16 08:55 Dose: 15 unit Insulin Human Lispro (Humalog) 0 unit SQ ACHS [facility] PRN Reason: Protocol Last Admin: 10/12/16 07:11 Dose: Not Given Iron Carb/Multivit/[place]/Folic Acid (Multivitamin W/Minerals) 1 tab PO DAILY [facility] Last Admin: 10/12/16 08:56 Dose: 1 tab Ketoconazole (Nizoral 2% Top Crm) 1 dose TOPICAL BID [facility] Last Admin: 10/12/16 08:58 Dose: 1 dose Misoprostol (Cytotec) 100 mcg PO TIDCC [facility] Last Admin: 10/12/16 06:51 Dose: 100 mcg Morphine Sulfate (Morphine) 2 - 4 mg IV Q4-6HP PRN PRN Reason: Pain Last Admin: 10/11/16 10:15 Dose: 2 mg Ondansetron HCl (Zofran) 4 mg IV Q4-6HP PRN PRN Reason: Nausea And Vomiting Magnesium Gluconate [Magnesium Gluconate ] 30 Mg Tablet 1 dose PO DAILY [facility] Last Admin: 10/11/16 10:31 Dose: Not Given Melatonin [Melatonin (] 6 Mg Tablet) 1 dose PO HSP PRN PRN Reason: Insomnia Polyethylene Glycol (Miralax) 17 gm PO DAILY PRN PRN Reason: Constipation Potassium Chloride (Klor-Con) 40 meq PO DAILYP PRN PRN Reason: K+ < 3.5 [facility]) [facility] Last Admin: 10/12/16 08:57 Dose: 10 mg Senna/Docusate Sodium (Senna Plus Tablet) 1 tab PO HS [facility] Last Admin: 10/11/16 21:09 Dose: 1 tab Sodium Chloride (Saline Flush) 10 ml IV Q8 [facility] Last Admin: 10/12/16 05:44 Dose: Not Given Spironolactone (Aldactone) 25 mg PO DAILY [facility] Last Admin: 10/12/16 08:56 Dose: 25 mg Tamsulosin HCl (Flomax) 0.4 mg PO HS [facility] Last Admin: 10/11/16 21:09 Dose: 0.4 mg Timolol Maleate (Timoptic 0.5% Ophth Drops) 1 gtt OD DAILY [facility] Last Admin: 10/11/16 10:29 Dose: Not Given Trazodone HCl (Desyrel) 50 mg PO HSP PRN PRN Reason: Insomnia Vancomycin HCl (Vancomycin Per Pharmacy) 1 [place] [facility] [place] - PN: A/P - Time Spent With Patient Total time spent is greater than 50% in coordination of care (as documented) at patient's floor/unit and/or counseling patient: 15 - 24 minutes (1) Diabetic foot ulcer Status: Acute Assessment and plan: * Diabetic foot ulcer with necrotizing cellulitis-clinical improvement noted on Zosyn and vancomycin. wound care ongoing * Severe sepsis secondary to above-white count at 12,000. Clinical improvement * Acute gouty arthritis-improved on prednisone. Continue allopurinol * DM type II on basal prandial insulin/sulfonylurea * Chronic kidney disease - Creatinine 2.5->1.8 * NYHA class III systolic heart failure EF 25%-avoid fluid overload. Restart home dose beta eugene/spironolactone * glaucoma on timolol * PVD with recent stenting at [place] 10/08 on aspirin/Plavix * BPH on tamsulosin * A. fib on amiodarone/Coreg * Hyperlipidemia and statin * History of CVA prophylaxis on Coumadin INR therapeutic * Chronic pain on hydromorphone at home dose * full CODE STATUS Plan * Continue antibiotic coverage * wound management per Dr. Rojo * steroids for gout flare * Pre-existing medical condition management as above * physical therapy * Case management to arrange SNF transfer on discharge Current Visit: Yes Medical - PN: Qual - VTE Deep Vein Thrombosis/Pulmonary Embolism Present on Admission: No
[2016-10-12] MEDS: TIMOLOL 0.5% OPHTH DROPS BOTTLE 5ML OD SCH (10:40)
[2016-10-12] MEDS: MAGNESIUM GLUCONATE 30 MG PO SCH (10:40)
--- NOTE | 2016-10-12 11:47 | General Surgery Progress Note ---
Subjective Patient reports: pain is less, voiding w/o difficulty, flatus, no bowel movement , afebrile, other (EXTREME WEAKNESS. Chronic pain bothlegs and feet.) Narrative: Note initiated : 10/12/16 at 11:45 am Service Date, if different from initiated Date: [] Patient: Guy Hernandez 65 y/o M admitted on 10/10/16 for Wound care. Chief Complaint: [] Objective Temp Pulse Resp BP Pulse Ox 98.6 F 105 H 18 99/48 90 10/12/16 06:34 10/12/16 04:00 10/12/16 06:34 10/12/16 06:34 10/12/16 07:30 Patient seen and Labs reviewed. Plan of care discussed with nursing staff. - Additional Data Intake & Output - Last 24 hours: Intake & Output 10/10/16 10/11/16 10/12/16 10/13/16 05:59 05:59 05:59 05:59 Intake Total 1300 / 1350 1600 / 1600 480 / 480 Output Total 2850 / 2850 1451 / 1451 625 / 625 Balance -1550 / -1500 149 / 149 -145 / -145 Weight 208 lb 1.6 oz 207 lb - General physical appearance moderate pain, other (MALNOURISHED. HPOPROTEINEMIC, ANEMIC. Elevated CRP Await Prealbumin, CRP and TSH ) - Eyes PERRL, normal ocular movement - ENT normal pinna, normal nares, normal mucosa, no congestion, other (POOR DENTITION. CARIES) - Neck no masses, no bruits, trachea midline, no venous distension - Respiratory normal expansion, clear to auscultation - Cardiovascular Cardiovascular exam: Present: irregular rhythm - Abdomen soft, non tender, bowel sounds - Genitourinary normal penis with no external lesions, other (CIRCUMSIZED) - Neurologic other (CSSSI Chronic Dermatitis with flare up. ADHERENT patches dry black eschar left leg) - Musculoskeletal other (Bed / wheelchair confined. DECONDITIONING Stiffness feet, ankle and legs ) - Psychiatric oriented to time, oriented to person, oriented to place, memory intact, other ( PTSD . NOW NO acute symptoms . ) - Labs 10/12/16 05:10 10/12/16 05:10 Diabetes panel 10/12/16 Range/Units 05:10 Sodium 140 (133-145) mmol/L Potassium 3.8 (3.3-5.1) mmol/L Chloride 99 (96-108) mmol/L Carbon Dioxide 30 (22-30) mmol/L BUN 37 H (8-23) mg/dl Creatinine 1.8 H (0.7-1.2) mg/dl Glucose 42 L (70-105) mg/dL Calcium 8.5 L (8.6-10.4) mg/dl AST 19 (0-37) U/l ALT 14 (0-40) U/l Alkaline Phosphatase 72 (39-117) U/L Total Protein 6.0 (5.9-8.4) gm/dL Albumin 2.4 L (3.2-5.2) gm/dL Triglycerides 50 (<150) mg/dl Calcium panel 10/12/16 Range/Units 05:10 Calcium 8.5 L (8.6-10.4) mg/dl Phosphorus 3.4 (2.7-4.5) mg/dL Albumin 2.4 L (3.2-5.2) gm/dL Pituitary panel 10/12/16 Range/Units 05:10 Sodium 140 (133-145) mmol/L Potassium 3.8 (3.3-5.1) mmol/L Chloride 99 (96-108) mmol/L Carbon Dioxide 30 (22-30) mmol/L BUN 37 H (8-23) mg/dl Creatinine 1.8 H (0.7-1.2) mg/dl Glucose 42 L (70-105) mg/dL Calcium 8.5 L (8.6-10.4) mg/dl Adrenal panel 10/12/16 Range/Units 05:10 Sodium 140 (133-145) mmol/L Potassium 3.8 (3.3-5.1) mmol/L Chloride 99 (96-108) mmol/L Carbon Dioxide 30 (22-30) mmol/L BUN 37 H (8-23) mg/dl Creatinine 1.8 H (0.7-1.2) mg/dl Glucose 42 L (70-105) mg/dL Calcium 8.5 L (8.6-10.4) mg/dl Total Bilirubin 0.3 (0.0-1.0) mg/dL AST 19 (0-37) U/l ALT 14 (0-40) U/l Alkaline Phosphatase 72 (39-117) U/L Total Protein 6.0 (5.9-8.4) gm/dL Albumin 2.4 L (3.2-5.2) gm/dL Assessment and Plan (1) Abscess of skin or subcutaneous tissue Problem details: ASSESSMENT: SIRS, Mixed bacterial infection GPC / GNB thus far. DM2 / CHF/ MALNUTRITION/ ANEMIA/PAD S/P Stent placemen/BPH/GLAUCOMA /CVA/HYPERLIPEDEMIA Dehydration improving. Creatinine is 1.8 Deconditioning and PTSD social issues: LIVES BY HIMSELF, UNABLE to care for himself PLAN: Nutrition Consult, Start Oxandrin 5 mg BID MIST for both legs before dressing changes. Check labs TSH / PREA;BUMIN / CRP POSSIBLE or DEBRIDEMENT BY 07/17/2016 Status: Acute Current Visit: Yes (2) Diabetic foot ulcer Status: Acute Current Visit: Yes (3) Lactic acidosis Status: Acute Current Visit: Yes (4) Acute on chronic renal failure Status: Acute Current Visit: No (5) Cellulitis Status: Acute Current Visit: No - Time Spent With Patient Total time spent is greater than 50% in coordination of care (as documented) at patient's floor/unit and/or counseling patient: 25 - 35 minutes
[2016-10-12] MEDS: GENTAMICIN SULFATE 40 MG, CLINDAMYCIN 300 MG, BACITRACIN 25,000 UNIT in SODIUM CHLORIDE... IRR SCH (15:03)
[2016-10-12] MEDS: TAMSULOSIN 0.4 MG CAPSULE PO SCH (20:23)
[2016-10-12] MEDS: SENNOSIDES/DOCUSATE SODIUM 1 TAB TABLET PO SCH (20:23)
[2016-10-12] MEDS: ATORVASTATIN 20 MG TABLET PO SCH (20:23)
[2016-10-12] MEDS: OXANDROLONE 2.5 MG TABLET PO SCH (20:27)
[2016-10-13] MEDS: GENTAMICIN SULFATE 40 MG, CLINDAMYCIN 300 MG, BACITRACIN 25,000 UNIT in SODIUM CHLORIDE... IRR SCH ×3 (00:51→20:59)
[2016-10-13] MEDS: PIPERACILLIN SODIUM/TAZOBACTAM 2.25 GM in DEXTROSE 5% IN WATER 50 ML IV SCH ×3 (00:51→14:59)
[2016-10-13 05:43] LABS: Mean Corpuscular HGB Conc 31.4 g/dL (31.0-36.0); Platelet Count 219 K/mcL (140-440); RBC 3.86 M/mcL (4.50-5.90)
[2016-10-13] MEDS: 0.9 % SODIUM CHLORIDE 10 ML SYRINGE IV SCH ×3 (06:01→20:57)
[2016-10-13 06:22] LABS: ALT/SGPT 15 U/l (0-40); Albumin 2.3 gm/dL (3.2-5.2); Albumin/Globulin Ratio 0.6 (1.0-2.3); Alkaline Phosphatase 79 U/L (39-117); Bilirubin,Direct < 0.2 mg/dL (0.0-0.3); Blood Urea Nitrogen 31 mg/dl (8-23); Gamma Glutamyl Transpeptidase 12 U/L (8-61); Magnesium 1.8 mg/dL (1.6-2.5); Prealbumin 5.7 mg/dl (20-40); Uric Acid 5.7 mg/dL (2.5-8.0)
[2016-10-13] MEDS: HYDROmorphone 2 MG TABLET PO PRN ×2 (06:28→15:06)
[2016-10-13 06:46] LABS: CRP,High Sensitivity 177.5 mg/L (1.0-3.0)
[2016-10-13] MEDS: glipiZIDE 5 MG TABLET PO SCH ×2 (06:52→16:50)
[2016-10-13] MEDS: INSULIN LISPRO 1 UNIT/0.01 ML UNIT SQ SCH ×4 (07:00→21:05)
[2016-10-13] MEDS: MISOPROSTOL 100 MCG TABLET PO SCH ×3 (07:48→16:50)
[2016-10-13] MEDS: CARVEDILOL 12.5 MG TABLET PO SCH ×2 (07:48→16:50)
[2016-10-13] MEDS: predniSONE 10 MG TABLET PO SCH (07:48)
--- NOTE | 2016-10-13 07:56 | History and Physical Report ---
DATE OF ADMISSION: 10/10/2016 REASON FOR ADMISSION: Lower extremity ulcers, weakness, drainage, increasing concern by wound care physician. HISTORY OF CHIEF COMPLAINT: The patient is a 65-year-old with known history of peripheral vascular disease, status post stenting [address] Pramod De Luna for lower extremity nonhealing ulcers along with wounds. [facility] and today during review patient was directed to [facility] ER for further evaluation, workup and antibiotic management in light of nonhealing wound. Patient has been getting progressively weak. He is unable to bear weight on his heels due to progressive ulceration, swelling and discharge. Patient also has generalized fatigue, lethargy, and malaise; however, does not endorse to fever, shaking chills, or drenching sweats. He denies diarrhea, dysuria, headache, or photophobia. He has had overall functional decline in the last few months. Initial workup in the ER was significant for elevated lactase along with white count of 12.1. Hospitalist Service was consulted for evaluation and management. At the time of examination, patient is alert, oriented. He denies any active distress. He is able to provide answers to most of the questions. He denies recent trauma or changes in medications. REVIEW OF SYSTEMS: A 10-point review of systems was performed and negative except the ones discussed above. PAST MEDICAL HISTORY: 1. History of peripheral vascular disease. 2. Hypertension. 3. Gout. 4. Atrial fibrillation. 5. Hyperlipidemia. 6. BPH. 7. Neuropathy. 8. Chronic pain. 9. Diabetes mellitus type 2. 10. Peptic ulcer disease. 11. History of chronic kidney disease, baseline creatinine around 2.5. CURRENT MEDICATIONS: 1. Trazodone 50 mg. 2. Glipizide 5 mg b.i.d. 3. Warfarin 3 mg daily. 4. Timolol eye drops. 5. Tamsulosin 0.4 mg at bedtime. 6. Spironolactone 25 mg. 7. Ranitidine. 8. Bisoprolol 100 mg t.i.d. 9. Glargine 20 mg daily. 10. Hydromorphone 2 mg q.6h. 11. Gabapentin 300 mg q.i.d. 12. Furosemide 20 mg b.i.d. 13. Finasteride 5 mg daily. 14. Coreg 12.5 mg b.i.d. 15. Atorvastatin 10 mg. 16. Aspirin 81 mg. 17. Amiodarone 200 mg. 18. Allopurinol 200 mg. PAST SURGICAL HISTORY: History of CABG, last EF 25%. SOCIAL HISTORY: Patient quit smoking in 2014, occasional alcohol. He uses marijuana. Cecilia Durbin is POA. Patient is a FULL CODE. He sees primary care providers, EBER Muir and Chong Rojo MD. FAMILY HISTORY: Non-contributory to physical exam. PHYSICAL EXAMINATION: GENERAL: Patient is alert, oriented, slightly fatigued but non-distressed. BMI 28, height 6'. VITAL SIGNS: Blood pressure 106/65, respirations 12, temperature 99.5, pulse 102, sats 95% on room air. HEENT: Pupils are symmetric. Oral cavity dry. No ear or nose discharge. Head is normocephalic, atraumatic. NECK: No lymphadenopathy. HEART: S1, S2 irregular rhythm. ESM grade 1. Diminished breath sounds, late inspiratory crackles. ABDOMEN: Soft, nontender. EXTREMITIES: Lower extremities: Bilateral lymphedema along with venous stasis and excoriated wound involving the moreira and the heel. Pictures were taken and documented in chart. SKIN: Otherwise no suspicious lesions. PSYCH: Alert, cooperative, mild anxiety. No agitation. NEURO: Nonfocal, moving all four extremities. LABS AND IMAGING: White count 12.1, hemoglobin 12.6, INR 3.2, lactic acid 2.3, sodium 130, potassium 4.7, creatinine 2.5, BUN 62, LFTs unremarkable. ASSESSMENT AND PLAN: A 65-year-old with known history of coronary artery disease, EF 25%; chronic kidney disease; and diabetic lower extremity nonhealing wounds, admitted with severe sepsis, infected bilateral wounds. 1. Lower extremity diabetic necrotizing cellulitis, will be managed [facility] while we continue antibiotics and deescalate based on cultures. At this time we will empirically cover gram negative anaerobes and MRSA with vancomycin, Zosyn, and await further wound care recommendations. 2. Severe sepsis, will be managed per guidelines; crystalloids; culture; broad antibiotics. 3. History of class III systolic heart failure, last EF 25%. After initial crystalloid, maintenance will be discontinued and if required patient will be started on pressors to avoid volume overload. 4. History of diabetes mellitus. Continue basal prandial insulin. 5. History of gout. Continue allopurinol. 6. History of atrial fibrillation. Continue amiodarone, Coreg, anticoagulation will be Coumadin. 7. History of glaucoma. Continue eyedrops. 8. BPH. Continue tamsulosin/finasteride. 9. Neuropathy. Continue gabapentin. 10. History of GERD. Continue ranitidine/bisoprolol. Patient is overall a high complexity admit with a multitude of comorbidities including chronic kidney disease and class III systolic heart failure, nonhealing diabetic wounds and severe sepsis mandating inpatient hospitalization. [facility] score on admission 16. AA:regi Job ID: [id number] Doc ID: [id number] Ariel Faria DISC JOCKEY Chong Rojo MD [facility]
[2016-10-13 08:00] LABS: Anisocytosis 1+ (NONE SEEN); Band Neutrophils % 2 % (0-10); Eosinophils % (Manual) 6 % (0-7); Lymphocytes % 17 % (15-49); Monocytes % (Manual) 5 % (1-12); Platelet Estimate NORMAL (NORMAL); RBC Morphology ABNORM (NORMAL); Segmented Neutrophils % 70 % (38-78)
[2016-10-13] MEDS ORDERED: FUROSEMIDE 20 MG TABLET PO SCH (08:00)
[2016-10-13] MEDS: INSULIN GLARGINE, HUMAN 1 UNIT/0.01 ML SQ SCH (09:21)
[2016-10-13] MEDS: GABAPENTIN 300 MG CAPSULE PO SCH ×5 (09:22→20:56)
[2016-10-13] MEDS: ALLOPURINOL 100 MG TABLET PO SCH (09:22)
[2016-10-13] MEDS: MULTIVIT,THER IRON,CA,FA & MIN 1 TABLET PO SCH (09:22)
[2016-10-13] MEDS: AMIODARONE HCL 200 MG TABLET PO SCH (09:22)
[2016-10-13] MEDS: FINASTERIDE 5 MG TABLET PO SCH (09:22)
[2016-10-13] MEDS: CYANOCOBALAMIN (VITAMIN B-12) 500 MCG TABLET PO SCH ×2 (09:22→20:56)
[2016-10-13] MEDS: FAMOTIDINE 20 MG TABLET PO SCH (09:22)
[2016-10-13] MEDS: CLOPIDOGREL 75 MG TABLET PO SCH (09:22)
[2016-10-13] MEDS: SPIRONOLACTONE 25 MG TABLET PO SCH (09:23)
[2016-10-13] MEDS: FOLIC ACID 1 MG TABLET PO SCH (09:23)
[2016-10-13] MEDS: DOCUSATE SODIUM 100 MG CAPSULE PO SCH ×2 (09:23→20:56)
[2016-10-13] MEDS: OXANDROLONE 2.5 MG TABLET PO SCH ×2 (09:23→21:06)
[2016-10-13] MEDS: TIMOLOL 0.5% OPHTH DROPS BOTTLE 5ML OD SCH (09:26)
[2016-10-13] MEDS: MAGNESIUM GLUCONATE 30 MG PO SCH (09:26)
[2016-10-13] MEDS: KETOCONAZOLE 2% TOP CRM 15GM TUBE TOPICAL SCH ×2 (09:57→20:59)
[2016-10-13] MEDS ORDERED: 0.9 % SODIUM CHLORIDE 10 ML SYRINGE IV PRN ×2 (10:55→12:34)
[2016-10-13] MEDS ORDERED: VANCOMYCIN 1,000 MG in 0.9 % SODIUM CHLORIDE 250 ML IV SCH (12:00)
--- NOTE | 2016-10-13 12:25 | Internal Med Progress Note ---
Medical - PN: Subj Patient information: Note initiated : 10/13/16 at 12:25 pm Service Date, if different from initiated Date: [] Patient: Guy Hernandez 65 y/o M admitted on 10/10/16 for Severe Sepsis, Bilateral Wounds Lower Extremity. Chief Complaint: [] Interval history: 10/10- 65-year-old with history of DM type 2/PVD/nYHA class III systolic heart failure admitted with diabetic nonhealing lower extremity wound/cellulitis and sepsis. Wound care consulted. broad antibiotic coverage instituted including vancomycin/Zosyn. admitted to telemetry. Underlying atrial fibrillation on amiodarone/Coreg. Continue close monitoring 10/11- white count 12,000. Creatinine 2.5. no overnight fever or chills. Complains of left index finger proximal interphalangeal joint swelling and pain. history of gout. Started on prednisone. Start Plavix in light of recent lower extremity stenting. Continue broad antibiotic coverage. Await wound care recommendations. continue telemetry monitoring. restart home medications. 10/12- ongoing wound care/antibiotics. Patient doing better. white count at 12.4. Afebrile. creatinine 1.8.improved gout flare on prednisone. Rate controlled. INR therapeutic. continue Plavix. 10/13- no overnight events. Continue antibiotics. Place PICC line. Anticipate 14 days IV antibiotics. Wound management per Dr. Rojo. creatinine 1.6. Improving end organ dysfunction. WBC 10.6. Hemoglobin 10.4. de-escalate antibiotics based on cultures. one out of 4 organism procidentia sensitive to Zosyn. await culture sensitivities on remaining. diuresing well with over 3300 net negative fluid balance. blood sugars at goal. INR therapeutic. - Constitutional Vitals: Vital Signs Temp Pulse Resp BP Pulse Ox 97.6 F 85 18 137/75 93 10/13/16 11:53 10/13/16 11:53 10/13/16 11:53 10/13/16 11:53 10/13/16 11:53 Period Temp Pulse Resp BP Sys/Zee Pulse Ox Last 24 Hr 96.8 F-98.9 F 84-103 16-18 100-137/63-78 90-97 Intake and Output 10/12/16 10/13/16 10/13/16 21:59 05:59 13:59 Intake Total 50 / 50 170 / 170 760 / 760 Output Total 925 / 925 500 / 500 1650 / 1650 Balance -875 / -875 -330 / -330 -890 / -890 Weight 206 lb 11.2 oz Intake & Output: Intake & Output 10/12/16 10/13/16 10/13/16 21:59 05:59 13:59 Intake Total 50 / 50 170 / 170 760 / 760 Output Total 925 / 925 500 / 500 1650 / 1650 Balance -875 / -875 -330 / -330 -890 / -890 Weight 206 lb 11.2 oz Intake: IV 50 / 50 50 / 50 Zosyn 2.25 gm In Dextrose 50 / 50 50 / 50 5% in Water 50 ml @ 100 mls/hr IV Q6H [facility] Rx#: [id number] Oral 120 / 120 760 / 760 Output: Void Amount 925 / 925 500 / 500 1650 / 1650 Other: Meal Lunch Breakfast Percent of Meal Consumed 100% 100% # Voids 1 # Bowel Movements 1 General appearance: cooperative, no acute distress Exam: no overnight events nondistressed No anxiety Medical - PN: Obj Da - Labs CBC & Chem 7: 10/13/16 05:00 10/13/16 05:00 Labs: Abnormal Lab Results 10/13/16 10/13/16 10/13/16 09:17 05:00 05:00 WBC RBC Hgb Hct RDW Eosinophils % (Manual) RBC Morphology Anisocytosis PT 29.9 H INR 2.7 H BUN 31 H Creatinine 1.6 H Glucose 134 H Calcium 8.5 L C-React Prot High Sens 177.5 H Albumin 2.3 L Globulin 3.9 H Albumin/Globulin Ratio 0.6 L Prealbumin 5.7 L Vancomycin Trough 16.8 H 10/13/16 10/12/16 10/12/16 05:00 05:10 05:10 WBC RBC 3.86 L Hgb 10.4 L Hct 33.2 L RDW 16.0 H Eosinophils % (Manual) RBC Morphology Abnorm A Anisocytosis 1+ A PT 34.2 H INR 3.2 H BUN 37 H Creatinine 1.8 H Glucose 42 L Calcium 8.5 L C-React Prot High Sens Albumin 2.4 L Globulin Albumin/Globulin Ratio 0.7 L Prealbumin Vancomycin Trough 10/12/16 10/11/16 05:10 09:25 WBC 12.4 H RBC 3.86 L Hgb 11.1 L Hct 33.9 L RDW 16.4 H Eosinophils % (Manual) 8 H RBC Morphology Abnorm A Anisocytosis 1+ A PT 35.1 H INR 3.3 H BUN Creatinine Glucose Calcium C-React Prot High Sens Albumin Globulin Albumin/Globulin Ratio Prealbumin Vancomycin Trough Meds: Medications Acetaminophen (Tylenol) 650 mg PO Q4-6HP PRN PRN Reason: PAIN/FEVER > 101 Albuterol/Ipratropium (Duoneb) 3 ml NEB Q4HP PRN PRN Reason: Shortness Of Breath Allopurinol (Zyloprim) 200 mg PO DAILY [facility] Last Admin: 10/13/16 09:22 Dose: 200 mg Amiodarone HCl (Cordarone) 200 mg PO QDAY [facility] Last Admin: 10/13/16 09:22 Dose: 200 mg Atorvastatin Calcium (Lipitor) 10 mg PO HS [facility] Last Admin: 10/12/16 20:23 Dose: 10 mg [facility] Last Admin: 10/13/16 07:48 Dose: 12.5 mg Clopidogrel Bisulfate (Plavix) 75 mg PO DAILY [facility] Last Admin: 10/13/16 09:22 Dose: 75 mg Cyanocobalamin (Vitamin B-12) 1,000 mcg PO BID [facility] Stop: 10/15/16 21:01 Last Admin: 10/13/16 09:22 Dose: 1,000 mcg Dextrose (Dextrose 50%) 0 ml IV UD PRN PRN Reason: Hypoglycemia Diagnostic Test (Pha) (Accu-Chek) 1 each FS ACHS [facility] Last Admin: 10/13/16 11:51 Dose: 1 each Docusate Sodium (Colace) 100 mg PO BID [facility] Last Admin: 10/13/16 09:23 Dose: 100 mg Famotidine (Pepcid) 20 mg PO DAILY [facility] Last Admin: 10/13/16 09:22 Dose: 20 mg Finasteride (Proscar) 5 mg PO DAILY [facility] Last Admin: 10/13/16 09:22 Dose: 5 mg Folic Acid (Folic Acid) 1 mg PO DAILY [facility] Last Admin: 10/13/16 09:23 Dose: 1 mg Furosemide (Lasix) 20 mg PO BIDD [facility] Last Admin: 10/13/16 07:48 Dose: 20 mg Gabapentin (Neurontin) 300 mg PO QID [facility] Last Admin: 10/13/16 12:15 Dose: 300 mg Glipizide (Glucotrol) 5 mg PO BIDAC [facility] Last Admin: 10/13/16 06:52 Dose: 5 mg Heparin Sodium (Porcine) (Heparin Flush) 2 ml IV Q12 [facility] Hydromorphone HCl (Dilaudid) 2 mg PO Q6HP PRN PRN Reason: Pain Last Admin: 10/13/16 06:28 Dose: 2 mg Magnesium Sulfate (Magnesium Sulfate) 2 gm in 50 mls @ 50 mls/hr IV UD PRN PRN Reason: MG = or < 1.7 Acetaminophen (Ofirmev) 1,000 mg in 100 mls @ 200 mls/hr IV Q6HP PRN PRN Reason: PAIN/FEVER > 101 Piperacillin Sod/Tazobactam (Sod 2.25 gm/ Dextrose) 50 mls @ 100 mls/hr IV Q6H [facility] Last Admin: 10/13/16 06:00 Dose: 100 mls/hr Gentamicin Sulfate 40 mg/Clindamycin Phosphate 300 mg/Bacitracin 25,000 unit/ Sodium Chloride 503 mls @ 0 mls/hr IRR Q12H [facility] PRN Reason: As Directed Last Admin: 10/13/16 11:22 Dose: 1 mls/hr Vancomycin HCl 1,000 mg/ (Sodium Chloride) 250 mls @ 250 mls/hr IV Q24H [facility] Last Admin: 10/13/16 12:11 Dose: 250 mls/hr Insulin Glargine (Lantus) 20 unit SQ DAILY [facility] Last Admin: 10/13/16 09:21 Dose: 20 unit Insulin Human Lispro (Humalog) 0 unit SQ ACHS [facility] PRN Reason: Protocol Last Admin: 10/13/16 11:51 Dose: Not Given Iron Carb/Multivit/Room Designer/Folic Acid (Multivitamin W/Minerals) 1 tab PO DAILY [facility] Last Admin: 10/13/16 09:22 Dose: 1 tab Ketoconazole (Nizoral 2% Top Crm) 1 dose TOPICAL BID [facility] Last Admin: 10/13/16 09:57 Dose: 1 dose Misoprostol (Cytotec) 100 mcg PO TIDCC [facility] Last Admin: 10/13/16 12:15 Dose: 100 mcg Morphine Sulfate (Morphine) 2 - 4 mg IV Q4-6HP PRN PRN Reason: Pain Last Admin: 10/13/16 09:56 Dose: 4 mg Ondansetron HCl (Zofran) 4 mg IV Q4-6HP PRN PRN Reason: Nausea And Vomiting Oxandrolone (Oxandrin) 5 mg PO BID [facility] Last Admin: 10/13/16 09:23 Dose: 5 mg Magnesium Gluconate [Magnesium Gluconate ] 30 Mg Tablet 1 dose PO DAILY [facility] Last Admin: 10/13/16 09:26 Dose: Not Given Melatonin [Melatonin (] 6 Mg Tablet) 1 dose PO HSP PRN PRN Reason: Insomnia Polyethylene Glycol (Miralax) 17 gm PO DAILY PRN PRN Reason: Constipation Potassium Chloride (Klor-Con) 40 meq PO DAILYP PRN PRN Reason: K+ < 3.5 Prednisone (Prednisone) 10 mg PO [facility] Last Admin: 10/13/16 07:48 Dose: 10 mg Senna/Docusate Sodium (Senna Plus Tablet) 1 tab PO [facility] Last Admin: 10/12/16 20:23 Dose: 1 tab Sodium Chloride (Saline Flush) 10 ml IV Q8 [facility] Last Admin: 10/13/16 06:01 Dose: Not Given Sodium Chloride (Saline Flush) 10 ml IV UD PRN PRN Reason: FLUSH Spironolactone (Aldactone) 25 mg PO DAILY [facility] Last Admin: 10/13/16 09:23 Dose: 25 mg Tamsulosin HCl (Flomax) 0.4 mg PO [facility] Last Admin: 10/12/16 20:23 Dose: 0.4 mg Timolol Maleate (Timoptic 0.5% Ophth Drops) 1 gtt OD DAILY [facility] Last Admin: 10/13/16 09:26 Dose: Not Given Trazodone HCl (Desyrel) 50 mg PO HSP PRN PRN Reason: Insomnia Vancomycin HCl (Vancomycin Per Pharmacy) 1 order IV UD [facility] Warfarin Sodium (Coumadin) 3 mg PO DAILY@1400 [facility] Medical - PN: A/P - Time Spent With Patient Total time spent is greater than 50% in coordination of care (as documented) at patient's floor/unit and/or counseling patient: 25 - 35 minutes (1) Diabetic foot ulcer Status: Acute Assessment and plan: * Diabetic foot ulcer with necrotizing cellulitis-Continue Zosyn and vancomycin. Providencia/strep agalactiae on wound culture. * Severe sepsis secondary to above-white count 10,000. Clinically resolved. Improving end organ dysfunction * Acute renal failure-creatinine down to 1.6 from 2.5. * Acute gouty arthritis-responding well to oral steroids. Continue allopurinol * DM type II on basal prandial insulin/sulfonylurea. blood sugars at goal * NYHA class III systolic heart failure EF 25%-avoid fluid overload. continue home dose beta eugene/spironolactone * Glaucoma on timolol * PVD with recent stenting at [place] 10/08 on Pl[address]ix as per Dr. De Luna. * BPH on tamsulosin * A. fib on amiodarone/Coreg. Rate controlled * hyperlipidemia -continue statin * History of CVA prophylaxis on Coumadin INR therapeutic * Chronic pain on hydromorphone at home dose * full CODE STATUS Plan * de-escalate antibiotics based on sensitivities * transfer to medical floor * continue oral prednisone for gout flare * Pre-existing medical condition management as above * continue daily wound care/ physical therapy * Case management to arrange SNF transfer Current Visit: Yes Medical - PN: Qual - VTE Deep Vein Thrombosis/Pulmonary Embolism Present on Admission: No
[2016-10-13] MEDS ORDERED: DEXTROSE 50% 50 ML VIAL IV PRN (12:34)
[2016-10-13] MEDS ORDERED: IPRATROPIUM/ALBUTEROL 3 ML AMPUL.NEB NEB PRN (12:34)
[2016-10-13] MEDS ORDERED: POTASSIUM CHLORIDE 20 MEQ PACKET PO PRN (12:34)
[2016-10-13] MEDS ORDERED: POLYETHYLENE GLYCOL 3350 17 GM PACKET PO PRN (12:34)
[2016-10-13] MEDS ORDERED: MELATONIN 6 MG PO PRN (12:34)
[2016-10-13] MEDS ORDERED: ACETAMINOPHEN 325 MG TABLET PO PRN (12:34)
[2016-10-13] MEDS ORDERED: ACETAMINOPHEN 1,000 MG/100 ML BOTTLE IV PRN (12:34)
[2016-10-13] MEDS ORDERED: VANCOMYCIN PER PHARMACY IV SCH (12:34)
[2016-10-13] MEDS ORDERED: MAGNESIUM SULFATE 2 GM/50 ML BAG IV PRN (12:34)
[2016-10-13] MEDS ORDERED: ONDANSETRON 4 MG/2 ML VIAL IV PRN (12:34)
[2016-10-13] MEDS ORDERED: PIPERACILLIN SODIUM/TAZOBACTAM 2.25 GM in DEXTROSE 5% IN WATER 50 ML IV ONE (13:00)
[2016-10-13] MEDS ORDERED: WARFARIN 3 MG TABLET PO SCH (14:00)
[2016-10-13] MEDS: VANCOMYCIN 1,500 MG in 0.9 % SODIUM CHLORIDE 500 ML IV SCH (14:59)
[2016-10-13] MEDS: FUROSEMIDE 20 MG TABLET PO SCH (15:07)
[2016-10-13] MEDS: WARFARIN 3 MG TABLET PO SCH (15:08)
--- NOTE | 2016-10-13 15:26 | General Surgery Progress Note ---
Subjective Patient reports: feels better, pain is less, tolerating a regular diet, voiding w/o difficulty, bowel movement, afebrile (Feels better. Improving range of motion of both LE feet, ankle and knees) Narrative: Note initiated : 10/13/16 at 3:22 pm Service Date, if different from initiated Date: [] Patient: Guy Hernandez 65 y/o M admitted on 10/10/16 for Severe Sepsis, Bilateral Wounds Lower Extremity. Chief Complaint: [] Objective Temp Pulse Resp BP Pulse Ox 97.6 F 85 18 137/75 93 10/13/16 11:53 10/13/16 11:53 10/13/16 11:53 10/13/16 11:53 10/13/16 11:53 AVSS. Chest CTA. Soft abdomen BS ++. Had BM . L/E Wounds of both lags / feet are mandrel cleaner. Still has ADHERENT ESCHAR that will need OR debridement. MIST therapy and local wound care is helping patient. LABS. PRE ALBUMIN 5, BUN / CREATININE is trending down. TSH is normal K+, is normal - Additional Data Intake & Output - Last 24 hours: Intake & Output 10/11/16 10/12/16 10/13/16 10/14/16 05:59 05:59 05:59 05:59 Intake Total 1300 / 1350 1600 / 1600 1160 / 1160 760 / 760 Output Total 2850 / 2850 1451 / 1451 2049 / 2049 1650 / 1650 Balance -1550 / -1500 149 / 149 -890 / -890 -890 / -890 Weight 208 lb 1.6 oz 207 lb 206 lb 11.2 oz 206 lb 11.2 oz - Labs 10/13/16 05:00 10/13/16 05:00 Diabetes panel 10/13/16 Range/Units 05:00 Sodium 137 (133-145) mmol/L Potassium 3.9 (3.3-5.1) mmol/L Chloride 96 (96-108) mmol/L Carbon Dioxide 28 (22-30) mmol/L BUN 31 H (8-23) mg/dl Creatinine 1.6 H (0.7-1.2) mg/dl Glucose 134 H (70-105) mg/dL Calcium 8.5 L (8.6-10.4) mg/dl AST 19 (0-37) U/l ALT 15 (0-40) U/l Alkaline Phosphatase 79 (39-117) U/L Total Protein 6.2 (5.9-8.4) gm/dL Albumin 2.3 L (3.2-5.2) gm/dL Triglycerides 81 (<150) mg/dl Thyroid panel 10/13/16 Range/Units 05:00 TSH 2.99 (0.27-5.01) uIU/ml Calcium panel 10/13/16 Range/Units 05:00 Calcium 8.5 L (8.6-10.4) mg/dl Phosphorus 2.8 (2.7-4.5) mg/dL Albumin 2.3 L (3.2-5.2) gm/dL Pituitary panel 10/13/16 Range/Units 05:00 Sodium 137 (133-145) mmol/L Potassium 3.9 (3.3-5.1) mmol/L Chloride 96 (96-108) mmol/L Carbon Dioxide 28 (22-30) mmol/L BUN 31 H (8-23) mg/dl Creatinine 1.6 H (0.7-1.2) mg/dl Glucose 134 H (70-105) mg/dL Calcium 8.5 L (8.6-10.4) mg/dl TSH 2.99 (0.27-5.01) uIU/ml Adrenal panel 10/13/16 Range/Units 05:00 Sodium 137 (133-145) mmol/L Potassium 3.9 (3.3-5.1) mmol/L Chloride 96 (96-108) mmol/L Carbon Dioxide 28 (22-30) mmol/L BUN 31 H (8-23) mg/dl Creatinine 1.6 H (0.7-1.2) mg/dl Glucose 134 H (70-105) mg/dL Calcium 8.5 L (8.6-10.4) mg/dl Total Bilirubin 0.3 (0.0-1.0) mg/dL AST 19 (0-37) U/l ALT 15 (0-40) U/l Alkaline Phosphatase 79 (39-117) U/L Total Protein 6.2 (5.9-8.4) gm/dL Albumin 2.3 L (3.2-5.2) gm/dL Assessment and Plan (1) Abscess of skin or subcutaneous tissue Problem details: ASSESSMENT: SIRS, Mixed bacterial infection GPC / GNB thus far. DM2 / CHF/ MALNUTRITION/ ANEMIA/PAD S/P Stent placemen/BPH/GLAUCOMA /CVA/HYPERLIPEDEMIA Dehydration improving. Creatinine is 1.8 Deconditioning and PTSD social issues: LIVES BY HIMSELF, UNABLE to care for himself PLAN: Nutrition Consult, Start Oxandrin 5 mg BID MIST for both legs before dressing changes. Check labs TSH / PREA;BUMIN / CRP POSSIBLE or DEBRIDEMENT BY 07/17/2016 Status: Acute Current Visit: Yes (2) Diabetic foot ulcer Status: Acute Current Visit: Yes (3) Lactic acidosis Status: Acute Current Visit: Yes (4) Acute on chronic renal failure Status: Acute Current Visit: No (5) Cellulitis Status: Acute Current Visit: No - Time Spent With Patient Total time spent is greater than 50% in coordination of care (as documented) at patient's floor/unit and/or counseling patient: ASSESSMENT: Slow but steady improvement with RESOLVING SIRS. Still HAS significant stiffness of feet, ankles and left knee. PLAN; Continue MIST and local wound care. Physical Therapy Consult, for ROM exercises, getting OOB and standing on level ground. OK to walk under supervision with fww . WBAT. OR debridement on 10/15/2017 at 07:30 morning for US AMNA debridement of both feet, ankles and legs [employer]NAGER to assist with finding a REHAB locally ( Patient's Choice to stay here ) . ANTICIPATE OK to discharge by 10/16/2016 15 - 24 minutes
[2016-10-13] MEDS: PIPERACILLIN SODIUM/TAZOBACTAM 3.375 GM in DEXTROSE 5% IN WATER 50 ML IV SCH (18:02)
[2016-10-13] MEDS: TAMSULOSIN 0.4 MG CAPSULE PO SCH (20:56)
[2016-10-13] MEDS: SENNOSIDES/DOCUSATE SODIUM 1 TAB TABLET PO SCH (20:57)
[2016-10-13] MEDS: ATORVASTATIN 20 MG TABLET PO SCH (20:57)
[2016-10-13] MEDS ORDERED: traZODone HCL 50 MG TABLET PO PRN (21:00)
[2016-10-14] MEDS: PIPERACILLIN SODIUM/TAZOBACTAM 3.375 GM in DEXTROSE 5% IN WATER 50 ML IV SCH ×5 (00:05→23:58)
[2016-10-14] MEDS: 0.9 % SODIUM CHLORIDE 10 ML SYRINGE IV SCH ×3 (05:41→21:00)
[2016-10-14 06:10] LABS: Mean Cell Volume 88.2 fL (80.0-100.0); Mean Corpuscular HGB Conc 31.9 g/dL (31.0-36.0); Mean Corpuscular Hemoglobin 28.2 pg (26.0-34.0); Platelet Count 251 K/mcL (140-440); RBC 4.02 M/mcL (4.50-5.90); Red Cell Distribution Width 16.7 % (11.5-14.5)
[2016-10-14 07:22] LABS: ALT/SGPT 17 U/l (0-40); Albumin 2.6 gm/dL (3.2-5.2); Albumin/Globulin Ratio 0.7 (1.0-2.3); Alkaline Phosphatase 81 U/L (39-117); Bilirubin,Direct < 0.2 mg/dL (0.0-0.3); Blood Urea Nitrogen 28 mg/dl (8-23); Gamma Glutamyl Transpeptidase 15 U/L (8-61); Magnesium 1.9 mg/dL (1.6-2.5); Uric Acid 4.5 mg/dL (2.5-8.0)
[2016-10-14 07:55] LABS: Anisocytosis 1+ (NONE SEEN); Band Neutrophils % 1 % (0-10); Eosinophils % (Manual) 1 % (0-7); Lymphocytes % 23 % (15-49); Monocytes % (Manual) 2 % (1-12); Platelet Estimate NORMAL (NORMAL); RBC Morphology ABNORM (NORMAL); Segmented Neutrophils % 73 % (38-78)
[2016-10-14] MEDS: HYDROmorphone 2 MG TABLET PO PRN (07:59)
[2016-10-14] MEDS: CARVEDILOL 12.5 MG TABLET PO SCH ×2 (08:00→17:50)
[2016-10-14] MEDS: FUROSEMIDE 20 MG TABLET PO SCH ×2 (08:00→17:51)
[2016-10-14] MEDS: predniSONE 10 MG TABLET PO SCH (08:00)
[2016-10-14] MEDS: glipiZIDE 5 MG TABLET PO SCH ×2 (08:00→17:49)
[2016-10-14] MEDS: INSULIN LISPRO 1 UNIT/0.01 ML UNIT SQ SCH ×4 (08:01→20:57)
[2016-10-14] MEDS: MISOPROSTOL 100 MCG TABLET PO SCH ×3 (08:01→17:50)
[2016-10-14] MEDS: CYANOCOBALAMIN (VITAMIN B-12) 500 MCG TABLET PO SCH ×2 (09:11→20:59)
[2016-10-14] MEDS: ALLOPURINOL 100 MG TABLET PO SCH (09:12)
[2016-10-14] MEDS: DOCUSATE SODIUM 100 MG CAPSULE PO SCH ×2 (09:12→21:00)
[2016-10-14] MEDS: GABAPENTIN 300 MG CAPSULE PO SCH ×4 (09:12→20:59)
[2016-10-14] MEDS: CLOPIDOGREL 75 MG TABLET PO SCH (09:12)
[2016-10-14] MEDS: FAMOTIDINE 20 MG TABLET PO SCH (09:13)
[2016-10-14] MEDS: FINASTERIDE 5 MG TABLET PO SCH (09:13)
[2016-10-14] MEDS: FOLIC ACID 1 MG TABLET PO SCH (09:13)
[2016-10-14] MEDS: MULTIVIT,THER IRON,CA,FA & MIN 1 TABLET PO SCH (09:13)
[2016-10-14] MEDS: INSULIN GLARGINE, HUMAN 1 UNIT/0.01 ML SQ SCH (09:14)
[2016-10-14] MEDS: SPIRONOLACTONE 25 MG TABLET PO SCH (09:16)
[2016-10-14] MEDS: AMIODARONE HCL 200 MG TABLET PO SCH (09:18)
--- NOTE | 2016-10-14 10:17 | Internal Med Progress Note ---
Medical - PN: Subj Patient information: Note initiated : 10/14/16 at 10:15 am Service Date, if different from initiated Date: [] Patient: Guy Hernandez 65 y/o M admitted on 10/10/16 for Severe Sepsis, Bilateral Wounds Lower Extremity. Chief Complaint: [] Interval history: 10/10- 65-year-old with history of DM type 2/PVD/nYHA class III systolic heart failure admitted with diabetic nonhealing lower extremity wound/cellulitis and sepsis. Wound care consulted. broad antibiotic coverage instituted including vancomycin/Zosyn. admitted to telemetry. Underlying atrial fibrillation on amiodarone/Coreg. Continue close monitoring 10/11- white count 12,000. Creatinine 2.5. no overnight fever or chills. Complains of left index finger proximal interphalangeal joint swelling and pain. history of gout. Started on prednisone. Start Plavix in light of recent lower extremity stenting. Continue broad antibiotic coverage. Await wound care recommendations. continue telemetry monitoring. restart home medications. 10/12- ongoing wound care/antibiotics. Patient doing better. white count at 12.4. Afebrile. creatinine 1.8.improved gout flare on prednisone. Rate controlled. INR therapeutic. continue Plavix. 10/13- no overnight events. Continue antibiotics. Place PICC line. Anticipate 14 days IV antibiotics. Wound management per Dr. Rojo. creatinine 1.6. Improving end organ dysfunction. WBC 10.6. Hemoglobin 10.4. de-escalate antibiotics based on cultures. one out of 4 organism procidentia sensitive to Zosyn. await culture sensitivities on remaining. diuresing well with over 3300 net negative fluid balance. blood sugars at goal. INR therapeutic. 10/14- Patient doing well. No overnight events. No concerns per staff. Case discussed with Dr. Rojo wound care physician. patient will undergo further debridement. Continue antibiotics.PICC line. Resisting medical condition management as below. No overnight fever chills nausea vomiting. white count from 10.6-14.3. INR 2.1. creatinine 1.6. - Constitutional Vitals: Vital Signs Temp Pulse Resp BP Pulse Ox 97.7 F 90 16 133/82 96 10/14/16 07:43 10/14/16 07:43 10/14/16 07:43 10/14/16 07:43 10/14/16 07:43 Period Temp Pulse Resp BP Sys/Zee Pulse Ox Last 24 Hr 97.6 F-98.4 F 80-105 14-18 131-139/70-82 93-97 Intake and Output 10/13/16 10/14/16 10/14/16 21:59 05:59 13:59 Intake Total 50 / 50 610 / 610 Output Total 900 / 900 1325 / 1325 500 / 500 Balance -850 / -850 -715 / -715 -500 / -500 Weight 206 lb 4.8 oz Intake & Output: Intake & Output 10/13/16 10/14/16 10/14/16 21:59 05:59 13:59 Intake Total 50 / 50 610 / 610 Output Total 900 / 900 1325 / 1325 500 / 500 Balance -850 / -850 -715 / -715 -500 / -500 Weight 206 lb 4.8 oz Intake: IV 50 / 50 50 / 50 Zosyn 3.375 gm In 50 / 50 50 / 50 Dextrose 5% in Water 50 ml @ 100 mls/hr IV Q6H [facility] Rx#:[id number] Oral 560 / 560 Output: Urine Catheter Amount 700 / 700 Void Amount 200 / 200 1325 / 1325 500 / 500 Other: Meal Dinner Percent of Meal Consumed 100% General appearance: cooperative, no acute distress Exam: nonlabored breathing Intermittently confused Anxiety nondistended abdomen No pallor Medical - PN: Obj Da - Labs CBC & Chem 7: 10/14/16 04:40 10/14/16 04:40 Labs: Abnormal Lab Results 10/14/16 10/14/16 10/14/16 04:40 04:40 04:40 WBC 14.3 H RBC 4.02 L Hgb 11.3 L Hct 35.4 L RDW 16.7 H Eosinophils % (Manual) RBC Morphology Abnorm A Anisocytosis 1+ A PT 23.9 H INR 2.1 H Chloride 94 L BUN 28 H Creatinine 1.6 H Glucose 148 H Calcium Phosphorus 2.4 L C-React Prot High Sens Albumin 2.6 L Globulin 3.8 H Albumin/Globulin Ratio 0.7 L Prealbumin Vancomycin Trough 10/13/16 10/13/16 10/13/16 09:17 05:00 05:00 WBC RBC Hgb Hct RDW Eosinophils % (Manual) RBC Morphology Anisocytosis PT 29.9 H INR 2.7 H Chloride BUN 31 H Creatinine 1.6 H Glucose 134 H Calcium 8.5 L Phosphorus C-React Prot High Sens 177.5 H Albumin 2.3 L Globulin 3.9 H Albumin/Globulin Ratio 0.6 L Prealbumin 5.7 L Vancomycin Trough 16.8 H 10/13/16 10/12/16 10/12/16 05:00 05:10 05:10 WBC RBC 3.86 L Hgb 10.4 L Hct 33.2 L RDW 16.0 H Eosinophils % (Manual) RBC Morphology Abnorm A Anisocytosis 1+ A PT 34.2 H INR 3.2 H Chloride BUN 37 H Creatinine 1.8 H Glucose 42 L Calcium 8.5 L Phosphorus C-React Prot High Sens Albumin 2.4 L Globulin Albumin/Globulin Ratio 0.7 L Prealbumin Vancomycin Trough 10/12/16 10/11/16 05:10 09:25 WBC 12.4 H RBC 3.86 L Hgb 11.1 L Hct 33.9 L RDW 16.4 H Eosinophils % (Manual) 8 H RBC Morphology Abnorm A Anisocytosis 1+ A PT 35.1 H INR 3.3 H Chloride BUN Creatinine Glucose Calcium Phosphorus C-React Prot High Sens Albumin Globulin Albumin/Globulin Ratio Prealbumin Vancomycin Trough Meds: Medications Acetaminophen (Tylenol) 650 mg PO Q4-6HP PRN PRN Reason: PAIN/FEVER > 101 Albuterol/Ipratropium (Duoneb) 3 ml NEB Q4HP PRN PRN Reason: Shortness Of Breath Allopurinol (Zyloprim) 200 mg PO DAILY [facility] Last Admin: 10/14/16 09:12 Dose: 200 mg Amiodarone HCl (Cordarone) 200 mg PO QDAY [facility] Last Admin: 10/14/16 09:18 Dose: 200 mg Atorvastatin Calcium (Lipitor) 10 mg PO HS [facility] Last Admin: 10/13/16 20:57 Dose: 10 mg [facility] Last Admin: 10/14/16 08:00 Dose: 12.5 mg Clopidogrel Bisulfate (Plavix) 75 mg PO DAILY [facility] Last Admin: 10/14/16 09:12 Dose: 75 mg Cyanocobalamin (Vitamin B-12) 1,000 mcg PO BID [facility] Stop: 10/15/16 21:01 Last Admin: 10/14/16 09:11 Dose: 1,000 mcg Dextrose (Dextrose 50%) 0 ml IV UD PRN PRN Reason: Hypoglycemia Diagnostic Test (Pha) (Accu-Chek) 1 each FS ACHS [facility] Last Admin: 10/14/16 08:00 Dose: 1 each Docusate Sodium (Colace) 100 mg PO BID [facility] Last Admin: 10/14/16 09:12 Dose: 100 mg Famotidine (Pepcid) 20 mg PO DAILY [facility] Last Admin: 10/14/16 09:13 Dose: 20 mg Finasteride (Proscar) 5 mg PO DAILY [facility] Last Admin: 10/14/16 09:13 Dose: 5 mg Folic Acid (Folic Acid) 1 mg PO DAILY [facility] Last Admin: 10/14/16 09:13 Dose: 1 mg Furosemide (Lasix) 20 mg PO BIDD [facility] Last Admin: 10/14/16 08:00 Dose: 20 mg Gabapentin (Neurontin) 300 mg PO QID [facility] Last Admin: 10/14/16 09:12 Dose: 300 mg Glipizide (Glucotrol) 5 mg PO BIDAC [facility] Last Admin: 10/14/16 08:00 Dose: 5 mg Heparin Sodium (Porcine) (Heparin Flush) 2 ml IV Q12 [facility] Last Admin: 10/13/16 20:57 Dose: Not Given Hydromorphone HCl (Dilaudid) 2 mg PO Q6HP PRN PRN Reason: Pain Last Admin: 10/14/16 07:59 Dose: 2 mg Gentamicin Sulfate 40 mg/Clindamycin Phosphate 300 mg/Bacitracin 25,000 unit/ Sodium Chloride 503 mls @ 0 mls/hr IRR Q12H [facility] PRN Reason: As Directed Last Admin: 10/13/16 20:59 Dose: 1 mls/hr Magnesium Sulfate (Magnesium Sulfate) 2 gm in 50 mls @ 50 mls/hr IV UD PRN PRN Reason: MG = or < 1.7 Acetaminophen (Ofirmev) 1,000 mg in 100 mls @ 200 mls/hr IV Q6HP PRN PRN Reason: PAIN/FEVER > 101 Vancomycin HCl 1,000 mg/ (Sodium Chloride) 250 mls @ 250 mls/hr IV Q24H [facility] Piperacillin Sod/Tazobactam (Sod 3.375 gm/ Dextrose) 50 mls @ 100 mls/hr IV Q6H [facility] Last Admin: 10/14/16 05:41 Dose: 100 mls/hr Insulin Glargine (Lantus) 20 unit SQ DAILY [facility] Last Admin: 10/14/16 09:14 Dose: 20 unit Insulin Human Lispro (Humalog) 0 unit SQ ACHS [facility] PRN Reason: Protocol Last Admin: 10/14/16 08:01 Dose: Not Given Iron Carb/Multivit/Liberty/Folic Acid (Multivitamin W/Minerals) 1 tab PO DAILY [facility] Last Admin: 10/14/16 09:13 Dose: 1 tab Ketoconazole (Nizoral 2% Top Crm) 1 dose TOPICAL BID [facility] Last Admin: 10/13/16 20:59 Dose: 1 dose Misoprostol (Cytotec) 100 mcg PO TIDCC [facility] Last Admin: 10/14/16 08:01 Dose: 100 mcg Morphine Sulfate (Morphine) 2 - 4 mg IV Q4-6HP PRN PRN Reason: Pain Last Admin: 10/13/16 20:54 Dose: 4 mg Ondansetron HCl (Zofran) 4 mg IV Q4-6HP PRN PRN Reason: Nausea And Vomiting Oxandrolone (Oxandrin) 5 mg PO BID [facility] Last Admin: 10/13/16 21:06 Dose: 5 mg Melatonin [Melatonin (] 6 Mg Tablet) 1 dose PO HSP PRN PRN Reason: Insomnia Magnesium Gluconate (30 Mg Tablet) 1 dose PO DAILY [facility] Polyethylene Glycol (Miralax) 17 gm PO DAILY PRN PRN Reason: Constipation Potassium Chloride (Klor-Con) 40 meq PO DAILYP PRN PRN Reason: K+ < 3.5 Prednisone (Prednisone) 10 mg PO QAMCC [facility] Last Admin: 10/14/16 08:00 Dose: 10 mg Senna/Docusate Sodium (Senna Plus Tablet) 1 tab PO HS [facility] Last Admin: 10/13/16 20:57 Dose: 1 tab Sodium Chloride (Saline Flush) 10 ml IV UD PRN PRN Reason: FLUSH Sodium Chloride (Saline Flush) 10 ml IV Q8 [facility] Last Admin: 10/14/16 05:41 Dose: Not Given Spironolactone (Aldactone) 25 mg PO DAILY [facility] Last Admin: 10/14/16 09:16 Dose: 25 mg Tamsulosin HCl (Flomax) 0.4 mg PO HS [facility] Last Admin: 10/13/16 20:56 Dose: 0.4 mg Timolol Maleate (Timoptic 0.5% Ophth Drops) 1 gtt OD DAILY [facility] Trazodone HCl (Desyrel) 50 mg PO HSP PRN PRN Reason: Insomnia Vancomycin HCl (Vancomycin Per Pharmacy) 1 order IV UD [facility] Warfarin Sodium (Coumadin) 3 mg PO DAILY@1400 [facility] Last Admin: 10/13/16 15:08 Dose: 3 mg Medical - PN: A/P - Time Spent With Patient Total time spent is greater than 50% in coordination of care (as documented) at patient's floor/unit and/or counseling patient: 15 - 24 minutes (1) Diabetic foot ulcer Status: Acute Assessment and plan: * Diabetic foot ulcer with necrotizing cellulitis-clinical improvement noted on Zosyn and vancomycin. patient will undergo further debridements. Providencia/ Pseudomonas/strep agalactiae on wound culture. white count at 14,000 * Severe sepsis secondary to above-uptrending white count 40,000. however improving end organ dysfunction * Acute renal failure-creatinine down to 1.6 from 2.5. appears at baseline * Acute gouty arthritis- responded well to oral steroids. Continue allopurinol * DM type II on basal prandial insulin/sulfonylurea. blood sugars at goal <150 * NYHA class III systolic heart failure EF 25%-avoid fluid overload. continue home dose beta eugene/spironolactone * Glaucoma on timolol * PVD with recent stenting at [place] 10/08 - on Plavix as per Dr. De Luna. * BPH on tamsulosin * A. fib on amiodarone/Coreg. Rate controlled * hyperlipidemia -continue statin * History of CVA prophylaxis on Coumadin INR therapeutic. 2.1 * Chronic pain on hydromorphone at home dose * full CODE STATUS Plan * de-escalate antibiotics based on sensitivities * dC steroids in 24 hours * Pre-existing medical condition management as above * continue daily wound care/ physical therapy * Case management to arrange SNF transfer Current Visit: Yes Medical - PN: Qual - VTE Deep Vein Thrombosis/Pulmonary Embolism Present on Admission: No
[2016-10-14] MEDS ORDERED: VANCOMYCIN 1,000 MG in 0.9 % SODIUM CHLORIDE 250 ML IV SCH (12:00)
[2016-10-14] MEDS: OXANDROLONE 2.5 MG TABLET PO SCH ×2 (12:26→20:59)
[2016-10-14] MEDS: MAGNESIUM GLUCONATE 30 MG PO SCH (12:35)
[2016-10-14] MEDS: TIMOLOL 0.5% OPHTH DROPS BOTTLE 5ML OD SCH (12:35)
[2016-10-14] MEDS: GENTAMICIN SULFATE 40 MG, CLINDAMYCIN 300 MG, BACITRACIN 25,000 UNIT in SODIUM CHLORIDE... IRR SCH ×2 (13:30→21:00)
[2016-10-14] MEDS: KETOCONAZOLE 2% TOP CRM 15GM TUBE TOPICAL SCH ×2 (13:39→21:00)
[2016-10-14] MEDS: WARFARIN 3 MG TABLET PO SCH ×2 (15:28→17:56)
--- NOTE | 2016-10-14 17:19 | General Surgery Progress Note ---
Subjective Patient reports: no new complaints, feels better, pain is less, tolerating a regular diet, bowel movement, afebrile, other (PICC line inserted. NEEDS O R VERSAJET ( Ultrasound ) surgical debridement. Later transfer to [facility]) Narrative: Note initiated : 10/14/16 at 5:16 pm Service Date, if different from initiated Date: [] Patient: Guy Hernandez 65 y/o M admitted on 10/10/16 for Severe Sepsis, Bilateral Wounds Lower Extremity. Chief Complaint: [] Objective Temp Pulse Resp BP Pulse Ox 98.0 F 97 H 16 121/75 94 10/14/16 12:00 10/14/16 12:00 10/14/16 12:00 10/14/16 12:00 10/14/16 12:00 AVSS. No acute changes in clinical examination. PICC line inserted. Dressings changed. CDI. Wound C/S multiple organisms. On Broad IV anti biotic coverage. - Additional Data Intake & Output - Last 24 hours: Intake & Output 10/12/16 10/13/16 10/14/16 10/15/16 05:59 05:59 05:59 05:59 Intake Total 1600 / 1600 1160 / 1160 1420 / 1420 300 / 300 Output Total 1451 / 1451 0 / 2050 4175 / 4175 800 / 800 Balance 149 / 149 -890 / -890 -2755 / -2755 -500 / -500 Weight 207 lb 206 lb 11.2 oz 206 lb 4.8 oz - Labs 10/14/16 04:40 10/14/16 04:40 Diabetes panel 10/14/16 Range/Units 04:40 Sodium 137 (133-145) mmol/L Potassium 4.1 (3.3-5.1) mmol/L Chloride 94 L (96-108) mmol/L Carbon Dioxide 30 (22-30) mmol/L BUN 28 H (8-23) mg/dl Creatinine 1.6 H (0.7-1.2) mg/dl Glucose 148 H (70-105) mg/dL Calcium 8.7 (8.6-10.4) mg/dl AST 22 (0-37) U/l ALT 17 (0-40) U/l Alkaline Phosphatase 81 (39-117) U/L Total Protein 6.4 (5.9-8.4) gm/dL Albumin 2.6 L (3.2-5.2) gm/dL Triglycerides 66 (<150) mg/dl Calcium panel 10/14/16 Range/Units 04:40 Calcium 8.7 (8.6-10.4) mg/dl Phosphorus 2.4 L (2.7-4.5) mg/dL Albumin 2.6 L (3.2-5.2) gm/dL Pituitary panel 10/14/16 Range/Units 04:40 Sodium 137 (133-145) mmol/L Potassium 4.1 (3.3-5.1) mmol/L Chloride 94 L (96-108) mmol/L Carbon Dioxide 30 (22-30) mmol/L BUN 28 H (8-23) mg/dl Creatinine 1.6 H (0.7-1.2) mg/dl Glucose 148 H (70-105) mg/dL Calcium 8.7 (8.6-10.4) mg/dl Adrenal panel 10/14/16 Range/Units 04:40 Sodium 137 (133-145) mmol/L Potassium 4.1 (3.3-5.1) mmol/L Chloride 94 L (96-108) mmol/L Carbon Dioxide 30 (22-30) mmol/L BUN 28 H (8-23) mg/dl Creatinine 1.6 H (0.7-1.2) mg/dl Glucose 148 H (70-105) mg/dL Calcium 8.7 (8.6-10.4) mg/dl Total Bilirubin 0.3 (0.0-1.0) mg/dL AST 22 (0-37) U/l ALT 17 (0-40) U/l Alkaline Phosphatase 81 (39-117) U/L Total Protein 6.4 (5.9-8.4) gm/dL Albumin 2.6 L (3.2-5.2) gm/dL Assessment and Plan (1) Abscess of skin or subcutaneous tissue Problem details: ASSESSMENT: SIRS, Mixed bacterial infection GPC / GNB thus far. DM2 / CHF/ MALNUTRITION/ ANEMIA/PAD S/P Stent placemen/BPH/GLAUCOMA /CVA/HYPERLIPEDEMIA Dehydration improving. Creatinine is 1.8 Deconditioning and PTSD social issues: LIVES BY HIMSELF, UNABLE to care for himself PLAN: Nutrition Consult, Start Oxandrin 5 mg BID MIST for both legs before dressing changes. Check labs TSH / PREA;BUMIN / CRP POSSIBLE or DEBRIDEMENT BY 07/17/2016 Status: Acute Current Visit: Yes (2) Diabetic foot ulcer Status: Acute Current Visit: Yes (3) Lactic acidosis Status: Acute Current Visit: Yes (4) Acute on chronic renal failure Status: Acute Current Visit: No (5) Cellulitis Status: Acute Current Visit: No - Time Spent With Patient Total time spent is greater than 50% in coordination of care (as documented) at patient's floor/unit and/or counseling patient: Spoke with nursing staff and with patient at length. REVIEWED Case Management note. FOR OR surgical Versajet / Ultrasound Debridement tomorrow afternoon. OK to transfer to [facility] after OR debridement. 25 - 35 minutes
[2016-10-14] MEDS: SENNOSIDES/DOCUSATE SODIUM 1 TAB TABLET PO SCH (20:59)
[2016-10-14] MEDS: ATORVASTATIN 20 MG TABLET PO SCH (20:59)
[2016-10-14] MEDS: TAMSULOSIN 0.4 MG CAPSULE PO SCH (20:59)
[2016-10-15 05:26] LABS: Mean Cell Volume 87.7 fL (80.0-100.0); Mean Corpuscular HGB Conc 32.3 g/dL (31.0-36.0); Mean Corpuscular Hemoglobin 28.4 pg (26.0-34.0); Platelet Count 273 K/mcL (140-440); RBC 4.14 M/mcL (4.50-5.90); Red Cell Distribution Width 17.1 % (11.5-14.5)
[2016-10-15] MEDS: PIPERACILLIN SODIUM/TAZOBACTAM 3.375 GM in DEXTROSE 5% IN WATER 50 ML IV SCH ×4 (05:58→23:45)
[2016-10-15] MEDS: 0.9 % SODIUM CHLORIDE 10 ML SYRINGE IV SCH ×3 (06:02→21:55)
[2016-10-15 06:11] LABS: ALT/SGPT 16 U/l (0-40); Albumin 2.5 gm/dL (3.2-5.2); Albumin/Globulin Ratio 0.6 (1.0-2.3); Alkaline Phosphatase 69 U/L (39-117); Bilirubin,Direct < 0.2 mg/dL (0.0-0.3); Blood Urea Nitrogen 23 mg/dl (8-23); Gamma Glutamyl Transpeptidase 16 U/L (8-61); Uric Acid 4.2 mg/dL (2.5-8.0)
[2016-10-15 08:17] LABS: Anisocytosis 1+ (NONE SEEN); Eosinophils % (Manual) 5 % (0-7); Lymphocytes % 9 % (15-49); Monocytes % (Manual) 7 % (1-12); Platelet Estimate NORMAL (NORMAL); RBC Morphology ABNORM (NORMAL); Segmented Neutrophils % 79 % (38-78)
[2016-10-15] MEDS: CARVEDILOL 12.5 MG TABLET PO SCH ×2 (08:37→17:13)
[2016-10-15] MEDS: FUROSEMIDE 20 MG TABLET PO SCH (08:37)
[2016-10-15] MEDS: AMIODARONE HCL 200 MG TABLET PO SCH (08:37)
[2016-10-15] MEDS: INSULIN LISPRO 1 UNIT/0.01 ML UNIT SQ SCH ×4 (08:39→21:57)
[2016-10-15] MEDS: glipiZIDE 5 MG TABLET PO SCH ×2 (08:39→17:13)
[2016-10-15] MEDS: MISOPROSTOL 100 MCG TABLET PO SCH ×3 (08:39→17:13)
[2016-10-15] MEDS: GABAPENTIN 300 MG CAPSULE PO SCH ×4 (08:40→21:54)
[2016-10-15] MEDS: MULTIVIT,THER IRON,CA,FA & MIN 1 TABLET PO SCH (08:40)
[2016-10-15] MEDS: KETOCONAZOLE 2% TOP CRM 15GM TUBE TOPICAL SCH (08:40)
[2016-10-15] MEDS: FOLIC ACID 1 MG TABLET PO SCH (08:40)
[2016-10-15] MEDS: SPIRONOLACTONE 25 MG TABLET PO SCH (08:40)
[2016-10-15] MEDS: OXANDROLONE 2.5 MG TABLET PO SCH (08:40)
[2016-10-15] MEDS: DOCUSATE SODIUM 100 MG CAPSULE PO SCH (08:40)
[2016-10-15] MEDS: predniSONE 10 MG TABLET PO SCH (08:40)
[2016-10-15] MEDS: FINASTERIDE 5 MG TABLET PO SCH (08:41)
[2016-10-15] MEDS: FAMOTIDINE 20 MG TABLET PO SCH (08:41)
[2016-10-15] MEDS: CYANOCOBALAMIN (VITAMIN B-12) 500 MCG TABLET PO SCH (08:41)
[2016-10-15] MEDS: TIMOLOL 0.5% OPHTH DROPS BOTTLE 5ML OD SCH (08:41)
[2016-10-15] MEDS: ALLOPURINOL 100 MG TABLET PO SCH (08:41)
[2016-10-15] MEDS: CLOPIDOGREL 75 MG TABLET PO SCH (08:41)
[2016-10-15] MEDS: MAGNESIUM GLUCONATE 30 MG PO SCH (08:41)
[2016-10-15] MEDS: GENTAMICIN SULFATE 40 MG, CLINDAMYCIN 300 MG, BACITRACIN 25,000 UNIT in SODIUM CHLORIDE... IRR SCH (09:45)
--- NOTE | 2016-10-15 10:09 | Internal Med Progress Note ---
Medical - PN: Subj Patient information: Note initiated : 10/15/16 at 10:07 am Service Date, if different from initiated Date: [] Patient: Guy Hernandez 65 y/o M admitted on 10/10/16 for Severe Sepsis, Bilateral Wounds Lower Extremity. Chief Complaint: [] Interval history: 10/10- 65-year-old with history of DM type 2/PVD/nYHA class III systolic heart failure admitted with diabetic nonhealing lower extremity wound/cellulitis and sepsis. Wound care consulted. broad antibiotic coverage instituted including vancomycin/Zosyn. admitted to telemetry. Underlying atrial fibrillation on amiodarone/Coreg. Continue close monitoring 10/11- white count 12,000. Creatinine 2.5. no overnight fever or chills. Complains of left index finger proximal interphalangeal joint swelling and pain. history of gout. Started on prednisone. Start Plavix in light of recent lower extremity stenting. Continue broad antibiotic coverage. Await wound care recommendations. continue telemetry monitoring. restart home medications. 10/12- ongoing wound care/antibiotics. Patient doing better. white count at 12.4. Afebrile. creatinine 1.8.improved gout flare on prednisone. Rate controlled. INR therapeutic. continue Plavix. 10/13- no overnight events. Continue antibiotics. Place PICC line. Anticipate 14 days IV antibiotics. Wound management per Dr. Rojo. creatinine 1.6. Improving end organ dysfunction. WBC 10.6. Hemoglobin 10.4. de-escalate antibiotics based on cultures. one out of 4 organism procidentia sensitive to Zosyn. await culture sensitivities on remaining. diuresing well with over 3300 net negative fluid balance. blood sugars at goal. INR therapeutic. 10/14- Patient doing well. No overnight events. No concerns per staff. Case discussed with Dr. Rojo wound care physician. patient will undergo further debridement. Continue antibiotics.PICC line. Resisting medical condition management as below. No overnight fever chills nausea vomiting. white count from 10.6-14.3. INR 2.1. creatinine 1.6. 10/15- worsening leukocytosis at 15.4. wound debridement today by Dr. Rjoo. Polymicrobial on cultures. sensitive to Zosyn. Continue antibiotic coverage. Anticipate antibiotic coverage for at least 7 days outpatient. PICC line placed. continue home medications - Constitutional Vitals: Vital Signs Temp Pulse Resp BP Pulse Ox 97.5 F L 86 20 112/70 95 10/15/16 06:55 10/15/16 06:55 10/15/16 06:55 10/15/16 06:55 10/15/16 07:21 Period Temp Pulse Resp BP Sys/Zee Pulse Ox Last 24 Hr 97.5 F-98.3 F 85-103 16-20 112-127/70-81 92-97 Intake and Output 10/14/16 10/15/16 10/15/16 21:59 05:59 13:59 Intake Total 410 / 410 250 / 250 Output Total 950 / 950 1201 / 1201 Balance -540 / -540 -951 / -951 Weight 206 lb Intake & Output: Intake & Output 10/14/16 10/15/16 10/15/16 21:59 05:59 13:59 Intake Total 410 / 410 250 / 250 Output Total 950 / 950 1201 / 1201 Balance -540 / -540 -951 / -951 Weight 206 lb Intake: IV 50 / 50 50 / 50 Zosyn 3.375 gm In 50 / 50 50 / 50 Dextrose 5% in Water 50 ml @ 100 mls/hr IV Q6H [facility] Rx#:[id number] Oral 360 / 360 200 / 200 Output: Void Amount 950 / 950 1200 / 1200 # of times incontinent of 1 / 1 urine Other: Meal Dinner Percent of Meal Consumed 100% General appearance: cooperative, no acute distress Exam: no pallor nonlabored breathing Lower extremity wounds managed by wound care wrapped in sterile dressing Patient feels fatigued and lethargic but no anxiety Medical - PN: Obj Da - Labs CBC & Chem 7: 10/15/16 04:00 10/15/16 04:00 Labs: Abnormal Lab Results 10/15/16 10/15/16 10/15/16 04:00 04:00 04:00 WBC 15.4 H RBC 4.14 L Hgb 11.8 L Hct 36.3 L RDW 17.1 H Seg Neutrophils % 79 H Lymphocytes % 9 L RBC Morphology Abnorm A Anisocytosis 1+ A PT 28.3 H INR 2.5 H Chloride Carbon Dioxide 37 H Anion Gap 7.0 L BUN Creatinine 1.5 H Glucose 117 H Calcium Phosphorus C-React Prot High Sens Albumin 2.5 L Globulin 4.0 H Albumin/Globulin Ratio 0.6 L Prealbumin Vancomycin Trough 10/14/16 10/14/16 10/14/16 04:40 04:40 04:40 WBC 14.3 H RBC 4.02 L Hgb 11.3 L Hct 35.4 L RDW 16.7 H Seg Neutrophils % Lymphocytes % RBC Morphology Abnorm A Anisocytosis 1+ A PT 23.9 H INR 2.1 H Chloride 94 L Carbon Dioxide Anion Gap BUN 28 H Creatinine 1.6 H Glucose 148 H Calcium Phosphorus 2.4 L C-React Prot High Sens Albumin 2.6 L Globulin 3.8 H Albumin/Globulin Ratio 0.7 L Prealbumin Vancomycin Trough 10/13/16 10/13/16 10/13/16 09:17 05:00 05:00 WBC RBC Hgb Hct RDW Seg Neutrophils % Lymphocytes % RBC Morphology Anisocytosis PT 29.9 H INR 2.7 H Chloride Carbon Dioxide Anion Gap BUN 31 H Creatinine 1.6 H Glucose 134 H Calcium 8.5 L Phosphorus C-React Prot High Sens 177.5 H Albumin 2.3 L Globulin 3.9 H Albumin/Globulin Ratio 0.6 L Prealbumin 5.7 L Vancomycin Trough 16.8 H 10/13/16 05:00 WBC RBC 3.86 L Hgb 10.4 L Hct 33.2 L RDW 16.0 H Seg Neutrophils % Lymphocytes % RBC Morphology Abnorm A Anisocytosis 1+ A PT INR Chloride Carbon Dioxide Anion Gap BUN Creatinine Glucose Calcium Phosphorus C-React Prot High Sens Albumin Globulin Albumin/Globulin Ratio Prealbumin Vancomycin Trough Meds: Medications Acetaminophen (Tylenol) 650 mg PO Q4-6HP PRN PRN Reason: PAIN/FEVER > 101 Albuterol/Ipratropium (Duoneb) 3 ml NEB Q4HP PRN PRN Reason: Shortness Of Breath Allopurinol (Zyloprim) 200 mg PO DAILY [facility] Last Admin: 10/15/16 08:41 Dose: Not Given Amiodarone HCl (Cordarone) 200 mg PO QDAY [facility] Last Admin: 10/15/16 08:37 Dose: 200 mg Atorvastatin Calcium (Lipitor) 10 mg PO HS [facility] Last Admin: 10/14/16 20:59 Dose: 10 mg Carvedilol (Coreg) 12.5 mg PO BIDCC [facility] Last Admin: 10/15/16 08:37 Dose: 12.5 mg Clopidogrel Bisulfate (Plavix) 75 mg PO DAILY [facility] Last Admin: 10/15/16 08:41 Dose: Not Given Cyanocobalamin (Vitamin B-12) 1,000 mcg PO BID [facility] Stop: 10/15/16 21:01 Last Admin: 10/15/16 08:41 Dose: Not Given Dextrose (Dextrose 50%) 0 ml IV UD PRN PRN Reason: Hypoglycemia Diagnostic Test (Pha) (Accu-Chek) 1 each FS ACHS [facility] Last Admin: 10/15/16 06:40 Dose: 1 each Docusate Sodium (Colace) 100 mg PO BID [facility] Last Admin: 10/15/16 08:40 Dose: Not Given Famotidine (Pepcid) 20 mg PO DAILY [facility] Last Admin: 10/15/16 08:41 Dose: Not Given Finasteride (Proscar) 5 mg PO DAILY [facility] Last Admin: 10/15/16 08:41 Dose: Not Given Folic Acid (Folic Acid) 1 mg PO DAILY [facility] Last Admin: 10/15/16 08:40 Dose: Not Given Furosemide (Lasix) 20 mg PO BIDD [facility] Last Admin: 10/15/16 08:37 Dose: 20 mg Gabapentin (Neurontin) 300 mg PO QID [facility] Last Admin: 10/15/16 08:40 Dose: Not Given Glipizide (Glucotrol) 5 mg PO BIDAC [facility] Last Admin: 10/15/16 08:39 Dose: Not Given Heparin Sodium (Porcine) (Heparin Flush) 2 ml IV Q12 [facility] Last Admin: 10/14/16 21:00 Dose: 2 ml Hydromorphone HCl (Dilaudid) 2 mg PO Q6HP PRN PRN Reason: Pain Last Admin: 10/14/16 07:59 Dose: 2 mg Gentamicin Sulfate 40 mg/Clindamycin Phosphate 300 mg/Bacitracin 25,000 unit/ Sodium Chloride 503 mls @ 0 mls/hr IRR Q12H [facility] PRN Reason: As Directed Last Admin: 10/15/16 09:45 Dose: Not Given Magnesium Sulfate (Magnesium Sulfate) 2 gm in 50 mls @ 50 mls/hr IV UD PRN PRN Reason: MG = or < 1.7 Acetaminophen (Ofirmev) 1,000 mg in 100 mls @ 200 mls/hr IV Q6HP PRN PRN Reason: PAIN/FEVER > 101 Piperacillin Sod/Tazobactam (Sod 3.375 gm/ Dextrose) 50 mls @ 100 mls/hr IV Q6H [facility] Last Admin: 10/15/16 05:58 Dose: 100 mls/hr Insulin Glargine (Lantus) 20 unit SQ DAILY [facility] Last Admin: 10/14/16 09:14 Dose: 20 unit Insulin Human Lispro (Humalog) 0 unit SQ ACHS [facility] PRN Reason: Protocol Last Admin: 10/15/16 08:39 Dose: Not Given Iron Carb/Multivit/Grimes/Folic Acid (Multivitamin W/Minerals) 1 tab PO DAILY [facility] Last Admin: 10/15/16 08:40 Dose: Not Given Ketoconazole (Nizoral 2% Top Crm) 1 dose TOPICAL BID [facility] Last Admin: 10/15/16 08:40 Dose: 1 dose Misoprostol (Cytotec) 100 mcg PO TIDCC [facility] Last Admin: 10/15/16 08:39 Dose: Not Given Morphine Sulfate (Morphine) 2 - 4 mg IV Q4-6HP PRN PRN Reason: Pain Last Admin: 10/15/16 04:29 Dose: 4 mg Ondansetron HCl (Zofran) 4 mg IV Q4-6HP PRN PRN Reason: Nausea And Vomiting Oxandrolone (Oxandrin) 5 mg PO BID [facility] Last Admin: 10/15/16 08:40 Dose: Not Given Melatonin [Melatonin (] 6 Mg Tablet) 1 dose PO HSP PRN PRN Reason: Insomnia Magnesium Gluconate (30 Mg Tablet) 1 dose PO DAILY [facility] Last Admin: 10/15/16 08:41 Dose: Not Given Polyethylene Glycol (Miralax) 17 gm PO DAILY PRN PRN Reason: Constipation Potassium Chloride (Klor-Con) 40 meq PO DAILYP PRN PRN Reason: K+ < 3.5 Prednisone (Prednisone) 10 mg PO QAMCC [facility] Last Admin: 10/15/16 08:40 Dose: Not Given Senna/Docusate Sodium (Senna Plus Tablet) 1 tab PO HS [facility] Last Admin: 10/14/16 20:59 Dose: 1 tab Sodium Chloride (Saline Flush) 10 ml IV UD PRN PRN Reason: FLUSH Sodium Chloride (Saline Flush) 10 ml IV Q8 [facility] Last Admin: 10/15/16 06:02 Dose: 10 ml Spironolactone (Aldactone) 25 mg PO DAILY [facility] Last Admin: 10/15/16 08:40 Dose: Not Given Tamsulosin HCl (Flomax) 0.4 mg PO HS [facility] Last Admin: 10/14/16 20:59 Dose: 0.4 mg Timolol Maleate (Timoptic 0.5% Ophth Drops) 1 gtt OD DAILY [facility] Last Admin: 10/15/16 08:41 Dose: Not Given Trazodone HCl (Desyrel) 50 mg PO HSP PRN PRN Reason: Insomnia Warfarin Sodium (Coumadin) 3 mg PO DAILY@1400 [facility] Last Admin: 10/14/16 17:56 Dose: 3 mg Medical - PN: A/P - Time Spent With Patient Total time spent is greater than 50% in coordination of care (as documented) at patient's floor/unit and/or counseling patient: 25 - 35 minutes (1) Diabetic foot ulcer Status: Acute Assessment and plan: * Diabetic foot ulcer with necrotizing cellulitis-clinical improvement noted on Zosyn. DC vancomycin. patient will undergo further debridements. Providencia/ Pseudomonas/strep agalactiae on wound culture. white count at at 15.5. * Severe sepsis secondary to above-uptrending white count 40,000. however improving end organ dysfunction * Acute renal failure-creatinine down to 1.6 from 2.5. appears at baseline * Acute gouty arthritis- responded well to oral steroids. Continue allopurinol * DM type II on basal prandial insulin/sulfonylurea. blood sugars at goal * NYHA class III systolic heart failure EF 25%-well compensated. continue beta euegne/spironolactone * Glaucoma on timolol * PVD with recent stenting at [place] 10/08 - continue Plavix as per Dr. De Luna. * BPH on tamsulosin * A. fib on amiodarone/Coreg. Rate controlled * Anticoagulation for CVA prophylaxis-On Coumadin. INR therapeutic * hyperlipidemia -continue statin * Chronic pain on hydromorphone at home dose * full CODE STATUS Plan * discontinue vancomycin * dC steroids * Pre-existing medical condition management as above * continue daily wound care/ physical therapy * Coumadin dosing based on INR * transfer to [facility] acute care unit likely in 24 hours Current Visit: Yes Medical - PN: Qual - VTE Deep Vein Thrombosis/Pulmonary Embolism Present on Admission: No
[2016-10-15] MEDS: INSULIN GLARGINE, HUMAN 1 UNIT/0.01 ML SQ SCH (11:01)
[2016-10-15] MEDS ORDERED: fentaNYL 100 MCG/2 ML VIAL IV ONE (13:30)
[2016-10-15] MEDS ORDERED: ETOMIDATE 20 MG/10 ML VIAL IV ONE (13:30)
[2016-10-15] MEDS ORDERED: KETAMINE 100 MG/ML ML IV ONE (13:30)
[2016-10-15] MEDS ORDERED: fentaNYL 100 MCG/2 ML VIAL IV PRN (13:59)
[2016-10-15] MEDS ORDERED: IPRATROPIUM/ALBUTEROL 3 ML AMPUL.NEB NEB PRN ×2 (13:59→15:32)
[2016-10-15] MEDS ORDERED: METHOCARBAMOL 1,000 MG/10 ML VIAL IV PRN (13:59)
[2016-10-15] MEDS ORDERED: HYDROmorphone 2 MG/ML SYRINGE IV PRN (13:59)
[2016-10-15] MEDS ORDERED: MEPERIDINE 25 MG/ML SYRINGE IV PRN (13:59)
[2016-10-15] MEDS ORDERED: ONDANSETRON 4 MG/2 ML VIAL IV PRN ×2 (13:59→15:32)
[2016-10-15] MEDS ORDERED: PROMETHAZINE 25 MG/ML VIAL IV PRN (13:59)
[2016-10-15] MEDS ORDERED: LACTATED RINGERS 1,000 ML IV SCH (14:00)
[2016-10-15] MEDS ORDERED: BACITRACIN 50,000 UNIT VIAL IR ONE (14:03)
[2016-10-15] MEDS ORDERED: GENTAMICIN SULFATE 800 MG/20 ML VIAL IR ONE (14:03)
[2016-10-15] MEDS ORDERED: CLINDAMYCIN 600 MG/4 ML VIAL IR ONE (14:03)
[2016-10-15] MEDS: WARFARIN 3 MG TABLET PO SCH (14:49)
--- NOTE | 2016-10-15 15:05 | General Surgery Procedure Note ---
Date of procedure: Note initiated : 10/15/16 at 3:03 pm Service Date, if different from initiated Date: [] Pre-op diagnosis: Sepsis syndrome Infected wounds both legs,ankle and feet Post-op diagnosis: same Procedure: OR surgical debridement, tissue cultures and tissue pathology Findings: MEASUREMENTS; LEFT foot dorsal surface 5 x 4 x0.1 CM Toes # 1; 3x1 CM # 2; 3x1 CM Toe # 3 2x1 CM Toe # 41x1 CM Toe # 5 1.5x1 CM Posterior heel 3 x 3.5 x o.5 CM Lateral Lower leg 5 x 3 x 0.5 CM RIGHT posterior heel 3x3.5 x 0.5. CM Anesthesia: GLMA Surgeon: Chong Rojo Estimated blood loss: 10 Pathology: other Description of procedure: Surgical debridement / Versajet debridement and lavage / tissue biopsies and cultures Condition: stable Disposition: PACU (Procedure well tolerated)
--- NOTE | 2016-10-15 15:15 | General Surgery Progress Note ---
Subjective Narrative: Note initiated : 10/15/16 at 3:12 pm Service Date, if different from initiated Date: [] Patient: Guy Hernandez 65 y/o M admitted on 10/10/16 for Severe Sepsis, Bilateral Wounds Lower Extremity. Chief Complaint: []POST OPERATIVE note. Surgery well tolerated. Intra operative findings reviewed with Dr. Frias, Hospitalist Physician, Micelle RN and Spoke with patient's daughter at length. Objective Temp Pulse Resp BP Pulse Ox 97.7 F 104 H 13 135/89 99 10/15/16 14:40 10/15/16 14:55 10/15/16 14:55 10/15/16 14:55 10/15/16 14:55 AVSS. Comfortable . Resting . Dressings CDI - Additional Data Intake & Output - Last 24 hours: Intake & Output 10/13/16 10/14/16 10/15/16 10/16/16 05:59 05:59 05:59 05:59 Intake Total 1160 / 1160 1420 / 1420 1010 / 1010 450 / 450 Output Total 2049 / 2049 4175 / 4175 2651 / 2651 25 / 25 Balance -890 / -890 -2755 / -2755 -1641 / -1641 425 / 425 Weight 206 lb 11.2 oz 206 lb 4.8 oz 206 lb - Labs 10/15/16 04:00 10/15/16 04:00 Diabetes panel 10/15/16 Range/Units 04:00 Sodium 140 (133-145) mmol/L Potassium 4.0 (3.3-5.1) mmol/L Chloride 96 (96-108) mmol/L Carbon Dioxide 37 H (22-30) mmol/L BUN 23 (8-23) mg/dl Creatinine 1.5 H (0.7-1.2) mg/dl Glucose 117 H (70-105) mg/dL Calcium 9.0 (8.6-10.4) mg/dl AST 19 (0-37) U/l ALT 16 (0-40) U/l Alkaline Phosphatase 69 (39-117) U/L Total Protein 6.5 (5.9-8.4) gm/dL Albumin 2.5 L (3.2-5.2) gm/dL Triglycerides 84 (<150) mg/dl Calcium panel 10/15/16 Range/Units 04:00 Calcium 9.0 (8.6-10.4) mg/dl Phosphorus 2.7 (2.7-4.5) mg/dL Albumin 2.5 L (3.2-5.2) gm/dL Pituitary panel 10/15/16 Range/Units 04:00 Sodium 140 (133-145) mmol/L Potassium 4.0 (3.3-5.1) mmol/L Chloride 96 (96-108) mmol/L Carbon Dioxide 37 H (22-30) mmol/L BUN 23 (8-23) mg/dl Creatinine 1.5 H (0.7-1.2) mg/dl Glucose 117 H (70-105) mg/dL Calcium 9.0 (8.6-10.4) mg/dl Adrenal panel 10/15/16 Range/Units 04:00 Sodium 140 (133-145) mmol/L Potassium 4.0 (3.3-5.1) mmol/L Chloride 96 (96-108) mmol/L Carbon Dioxide 37 H (22-30) mmol/L BUN 23 (8-23) mg/dl Creatinine 1.5 H (0.7-1.2) mg/dl Glucose 117 H (70-105) mg/dL Calcium 9.0 (8.6-10.4) mg/dl Total Bilirubin 0.3 (0.0-1.0) mg/dL AST 19 (0-37) U/l ALT 16 (0-40) U/l Alkaline Phosphatase 69 (39-117) U/L Total Protein 6.5 (5.9-8.4) gm/dL Albumin 2.5 L (3.2-5.2) gm/dL Assessment and Plan (1) Abscess of skin or subcutaneous tissue Problem details: ASSESSMENT: SIRS, Mixed bacterial infection GPC / GNB thus far. DM2 / CHF/ MALNUTRITION/ ANEMIA/PAD S/P Stent placemen/BPH/GLAUCOMA /CVA/HYPERLIPEDEMIA Dehydration improving. Creatinine is 1.8 Deconditioning and PTSD social issues: LIVES BY HIMSELF, UNABLE to care for himself PLAN: Nutrition Consult, Start Oxandrin 5 mg BID MIST for both legs before dressing changes. Check labs TSH / PREA;BUMIN / CRP POSSIBLE or DEBRIDEMENT BY 07/17/2016 Status: Acute Current Visit: Yes (2) Diabetic foot ulcer Status: Acute Current Visit: Yes (3) Lactic acidosis Status: Acute Current Visit: Yes (4) Acute on chronic renal failure Status: Acute Current Visit: No (5) Cellulitis Status: Acute Current Visit: No - Time Spent With Patient Total time spent is greater than 50% in coordination of care (as documented) at patient's floor/unit and/or counseling patient: From Wound care point of view patient can be discharged tomorrow 11/16/2016 IF he meets discharge criteria. 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 Wound Care: Elevation of both feet on 2 to 3 pillows and FREE OFF LOAFING of BOTH heels. Reinforce dressing as needed for strike through bleeding or staining of dressings. Dressings CAN remain in site UNTIL seen by the doctor or wound care physician / surgeon at the receiving hospital. Change dressing by 10/17 or 10/18/2016 As per the instructions of physician or Surgeon or health support specialist at the receiving hospital. IF THE RECEIVING INSTITUTION Doctor or Nurse have any questions about wound care or dressing, I can be reached on my cell phone THANKS; Chong Rojo MD FACS Greater than 35 minutes
--- NOTE | 2016-10-15 15:24 | Discharge Summary ---
Medical - DS: Prov Patient information: Note initiated : 10/15/16 at 3:23 pm Service Date, if different from initiated Date: [] Patient: Guy Hernandez 65 y/o M admitted on 10/10/16 for Severe Sepsis, Bilateral Wounds Lower Extremity. Chief Complaint: [] Date of admission: 10/10/16 18:46 Discharge date: 10/16/16 Primary care physician: [f_Reg Prim Care Provider] Medical - DS: Meds - Discharge Medications Prescriptions: Clopidogrel Bisulfate [Plavix] 75 mg PO DAILY #7 tablet Active and Home Medications: Home Medications amiodarone 200 mg tablet 200 mg PO QDAY 04/23/15 [History Confirmed 10/10/16 Last Taken Unknown] atorvastatin 10 mg tablet 10 mg PO QHS tab 06/11/15 [History Confirmed Last Taken 07/01/16 21:00] glipizide 5 mg tablet 5 mg PO BID #90 tab 09/03/15 [Rx Confirmed 10/10/16 Last Taken 07/01/16 21:00] Multivit,Ther Iron,Ca,FA & Min [Multivitamin W/Minerals] 1 tab PO DAILY tablet 07/08/16 [Rx Confirmed 10/10/16 Last Taken Unknown] Warfarin [Coumadin] 3 mg PO DAILY #1 tablet 07/08/16 [Rx Confirmed 10/10/16 Last Taken Unknown] traZODone HCL [Desyrel] 50 mg PO HSP PRN #0 tablet 07/08/16 [Rx Confirmed Last Taken Unknown] Allopurinol [Zyloprim] 200 mg PO DAILY 10/10/16 [History Confirmed 10/10/16 Last Taken Unknown] Ascorbic Acid [Vitamin C] 250 mg PO BID 10/10/16 [History Confirmed 10/10/16 Last Taken Unknown] Carvedilol [Coreg] 12.5 mg PO BIDCC 10/10/16 [History Confirmed 10/10/16 Last Taken Unknown] Cholecalciferol (Vitamin D3) [Vitamin D3] 2,000 unit PO DAILY 10/10/16 [History Confirmed 10/10/16 Last Taken Unknown] Doxycycline Hyclate [Vibramycin] 100 mg PO BID 10/10/16 [History Confirmed 10/10 Last Taken Unknown] Finasteride [Proscar] 5 mg PO DAILY 10/10/16 [History Confirmed 10/10/16 Last Taken Unknown] Furosemide [Lasix] 20 mg PO BID 10/10/16 [History Confirmed 10/10/16 Last Taken Unknown] Gabapentin [Neurontin] 300 mg PO QID 10/10/16 [History Confirmed 10/10/16 Last Taken Unknown] HYDROmorphone HCL [Dilaudid] 2 mg PO Q6HP PRN 10/10/16 [History Confirmed Last Taken Unknown] Insulin Glargine, Human [Lantus] 20 unit SQ DAILY 10/10/16 [History Confirmed Last Taken Unknown] Magnesium Gluconate 30 mg PO DAILY 10/10/16 [History Confirmed 10/10/16 Last Taken Unknown] Melatonin 6 mg PO DAILY 10/10/16 [History Confirmed 10/10/16 Last Taken Unknown] Misoprostol 100 mcg PO TID 10/10/16 [History Confirmed 10/10/16 Last Taken Unknown] Polyethylene Glycol 3350 [Smoothlax] 17 gm PO DAILY PRN 10/10/16 [History Confirmed 10/10/16 Last Taken Unknown] Ranitidine HCl [Acid Pm Head Cook] 150 mg PO DAILY 10/10/16 [History Confirmed Last Taken Unknown] Spironolactone [Aldactone] 25 mg PO DAILY 10/10/16 [History Confirmed 10/10/16 Last Taken Unknown] Tamsulosin [Flomax] 0.4 mg PO HS 10/10/16 [History Confirmed 10/10/16 Last Taken Unknown] Timolol 0.5% Ophth Drops [Timoptic 0.5% Ophth Drops] 1 gtt OD DAILY 10/10/16 [ History Confirmed 10/10/16 Last Taken Unknown] Clopidogrel Bisulfate [Plavix] 75 mg PO DAILY #7 tablet 10/15/16 [Rx Last Taken Unknown] Piperacillin Sodium/Tazobactam [Zosyn] 3.375 gm IV Q6H vial 10/15/16 [Rx Last Taken Unknown] Medical - DS: Hosp Hospital course: DISCHARGE DIAGNOSIS * Diabetic foot ulcer with necrotizing cellulitis-clinical improvement noted on Zosyn. Wound debridments per Dr Kirby. On Abx for Providentia/Pseudomonas/ strep agalactiae * Severe sepsis secondary to above- Continue ABx. Clinical improvement noted * Acute renal failure-creatinine down to 1.6 from 2.5. appears at baseline * Acute gouty arthritis- responded well to oral steroids. Continue allopurinol * DM type II on basal prandial insulin/sulfonylurea. blood sugars at goal * NYHA class III systolic heart failure EF 25%-well compensated. continue beta eugene/spironolactone * Glaucoma on timolol * PVD with recent stenting at [place] 10/08 - continue Plavix as per Dr. Murillo. * BPH on tamsulosin * A. fib on amiodarone/Coreg. Rate controlled * Anticoagulation for CVA prophylaxis-On Coumadin. INR therapeutic * hyperlipidemia -continue statin * Chronic pain on hydromorphone at home dose [facility] 10/10- 65-year-old with history of DM type 2/PVD/nYHA class III systolic heart failure admitted with diabetic nonhealing lower extremity wound/cellulitis and sepsis. Wound care consulted. broad antibiotic coverage instituted including vancomycin/Zosyn. admitted to telemetry. Underlying atrial fibrillation on amiodarone/Coreg. Continue close monitoring 10/11- white count 12,000. Creatinine 2.5. no overnight fever or chills. Complains of left index finger proximal interphalangeal joint swelling and pain. history of gout. Started on prednisone. Start Plavix in light of recent lower extremity stenting. Continue broad antibiotic coverage. Await wound care recommendations. continue telemetry monitoring. restart home medications. 10/12- ongoing wound care/antibiotics. Patient doing better. white count at 12.4. Afebrile. creatinine 1.8.improved gout flare on prednisone. Rate controlled. INR therapeutic. continue Plavix. 10/13- no overnight events. Continue antibiotics. Place PICC line. Anticipate 14 days IV antibiotics. Wound management per Dr. Rojo. creatinine 1.6. Improving end organ dysfunction. WBC 10.6. Hemoglobin 10.4. de-escalate antibiotics based on cultures. one out of 4 organism procidentia sensitive to Zosyn. await culture sensitivities on remaining. diuresing well with over 3300 net negative fluid balance. blood sugars at goal. INR therapeutic. 10/14- Patient doing well. No overnight events. No concerns per staff. Case discussed with Dr. Rojo wound care physician. patient will undergo further debridement. Continue antibiotics.PICC line. Resisting medical condition management as below. No overnight fever chills nausea vomiting. white count from 10.6-14.3. INR 2.1. creatinine 1.6. 10/15- worsening leukocytosis at 15.4. wound debridement today by Dr. Rojo. Polymicrobial on cultures. sensitive to Zosyn. Continue antibiotic coverage. Anticipate antibiotic coverage for at least 7 days outpatient. PICC line placed. continue home medications 10/16- Pt transferring to [facility] in stable state for continued wound management and Abx. Discharge diagnosis: . - Time Spent with Patient Total time spent providing and/or coordinating discharge services: Greater than 30 minutes Medical - DS: Exam - Constitutional Vitals: Vital Signs Temp Pulse Resp BP Pulse Ox 10/15/16 15:15 98.0 F 102 H 15 130/88 98 10/15/16 14:55 104 H 13 135/89 99 10/15/16 14:40 97.7 F 102 H 12 121/79 99 10/15/16 11:46 97.5 F L 87 20 112/65 95 10/15/16 07:21 95 10/15/16 06:55 97.5 F L 86 20 112/70 92 10/15/16 03:08 98.2 F 85 20 127/79 97 10/15/16 00:00 97.9 F 95 H 20 122/78 95 10/14/16 19:31 98.3 F 103 H 20 124/81 96 10/14/16 16:00 98.0 F 97 H 117/73 96 Intake and Output 10/15/16 10/15/16 10/15/16 05:59 13:59 21:59 Intake Total 250 / 250 50 / 50 400 / 400 Output Total 1201 / 1201 Balance -951 / -951 50 / 50 375 / 375 Intake: IV 50 / 50 50 / 50 400 / 400 Zosyn 3.375 gm In 50 / 50 50 / 50 Dextrose 5% in Water 50 ml @ 100 mls/hr IV Q6H [facility] Rx#:[id number] Oral 200 / 200 Output: Void Amount 1200 / 1200 # of times incontinent of 1 / 1 urine Estimated Blood Loss Medical - DS: Data Labs on day of discharge: Labs from last 24 hours 10/15/16 10/15/16 10/15/16 10:19 04:00 04:00 WBC RBC Hgb Hct MCV MCH MCHC RDW Plt Count MPV Total Counted Seg Neutrophils % Band Neutrophils % Lymphocytes % Monocytes % (Manual) Eosinophils % (Manual) Platelet Estimate RBC Morphology Anisocytosis PT 28.3 H INR 2.5 H Sodium 140 Potassium 4.0 Chloride 96 Carbon Dioxide 37 H Anion Gap 7.0 L BUN 23 Creatinine 1.5 H GFR Calculation 48 Glucose 117 H Uric Acid 4.2 Calcium 9.0 Phosphorus 2.7 Magnesium 2.0 Total Bilirubin 0.3 Direct Bilirubin < 0.2 GGT 16 AST 19 ALT 16 Alkaline Phosphatase 69 Lactate Dehydrogenase 197 Total Protein 6.5 Albumin 2.5 L Globulin 4.0 H Albumin/Globulin Ratio 0.6 L Triglycerides 84 Vancomycin Trough 15.4 H 10/15/16 04:00 WBC 15.4 H RBC 4.14 L Hgb 11.8 L Hct 36.3 L MCV 87.7 MCH 28.4 MCHC 32.3 RDW 17.1 H Plt Count 273 MPV 8.4 Total Counted 100 Seg Neutrophils % 79 H Band Neutrophils % Not Reportable Lymphocytes % 9 L Monocytes % (Manual) 7 Eosinophils % (Manual) 5 Platelet Estimate Normal RBC Morphology Abnorm A Anisocytosis 1+ A PT INR Sodium Potassium Chloride Carbon Dioxide Anion Gap BUN Creatinine GFR Calculation Glucose Uric Acid Calcium Phosphorus Magnesium Total Bilirubin Direct Bilirubin GGT AST ALT Alkaline Phosphatase Lactate Dehydrogenase Total Protein Albumin Globulin Albumin/Globulin Ratio Triglycerides Vancomycin Trough Medical - DS: A/P - Patient/Caregiver Discharge Instructions Activity: as per physical therapy Diet: Consistent Carbohydrate Additional Instructions: Zosyn for Pseudomonas/providentia and sterp coverage Plavix per Dr MURILLO- recent LE stent Wound care per Dr Rojo-See discharge plan note Activity per Physical Therapy May transfer via ambulance to [facility] Prescriptions: Clopidogrel Bisulfate [Plavix] 75 mg PO DAILY #7 tablet - Problem Maintenance (1) Diabetic foot ulcer Status: Acute Qualifiers: Diabetic foot ulcer location: toe Diabetes mellitus type: type 2 Laterality: unspecified laterality Non-pressure ulcer stage: with fat layer exposed Qualified Code(s): E11.621 - Type 2 diabetes mellitus with foot ulcer ; L97.502 - Non-pressure chronic ulcer of other part of unspecified foot with fat layer exposed - Follow up Plan Follow up with: Bandar Faria [Primary Care Provider] - Disposition: [facility] Prognosis: Fair Rehab Potential: Fair I certify that the patient requires SNF services: No Overall status at discharge: patient is progressing back to baseline Medical - DS: Qual - VTE Deep Vein Thrombosis/Pulmonary Embolism Present on Admission: No
[2016-10-15] MEDS ORDERED: MAGNESIUM SULFATE 2 GM/50 ML BAG IV PRN (15:32)
[2016-10-15] MEDS ORDERED: DEXTROSE 50% 50 ML VIAL IV PRN (15:32)
[2016-10-15] MEDS ORDERED: POTASSIUM CHLORIDE 20 MEQ PACKET PO PRN (15:32)
[2016-10-15] MEDS ORDERED: traZODone HCL 50 MG TABLET PO PRN (15:32)
[2016-10-15] MEDS ORDERED: ACETAMINOPHEN 1,000 MG/100 ML BOTTLE IV PRN (15:32)
[2016-10-15] MEDS ORDERED: POLYETHYLENE GLYCOL 3350 17 GM PACKET PO PRN (15:32)
[2016-10-15] MEDS ORDERED: ACETAMINOPHEN 325 MG TABLET PO PRN (15:32)
[2016-10-15] MEDS ORDERED: MELATONIN 6 MG PO PRN (15:32)
[2016-10-15] MEDS ORDERED: FUROSEMIDE 20 MG TABLET PO SCH (16:00)
[2016-10-15] MEDS: HYDROmorphone 2 MG TABLET PO PRN ×2 (16:10→21:54)
--- NOTE | 2016-10-15 17:24 | Operative Note ---
DATE OF OPERATION: 10/15/2016 PREOPERATIVE DIAGNOSIS: Resolving sepsis syndrome, infected wounds both legs, ankle, heels and feet. POSTOPERATIVE DIAGNOSIS: Resolving sepsis syndrome, infected wounds both legs, ankle, heels and feet. OPERATION: Surgical excision, debridement. Versajet debridement with irrigation. Tissue cultures and tissue pathology. WOUND MEASUREMENTS: Left foot dorsal surface: 5 x 4 x 0.1 cm. Left first toe: 3 x 1 cm. Left second toe: 3 x 1 cm. Left third toe: 2 x 1 cm. Left fourth toe: 1 x 1 cm. Left fifth toe: 1.5 x 1 cm. Left posterior heel: 3 x 3.5 x 0.5 cm. Left lower lateral le x 3 x 0.5 cm. Right posterior heel: 3 x 3.5 x 0.5 cm. ANESTHESIA: General laryngeal mask airway. SURGEON: Chong Rojo MD. ANESTHESIOLOGIST: Dr. Mckeon. ESTIMATED BLOOD LOSS: About 10 mL. SPECIMEN: Sent for pathology and cultures and sensitivities. PROCEDURE NOTE: After obtaining informed consent, patient was taken to the operating room and anesthetized uneventfully in supine position using laryngeal mask airway. Timeout was called. Intravenous antibiotics were already on board. The lower extremities were widely cleaned, prepped and draped in the standard fashion from the knees up to the toes. First a thorough scrubbing of the wound was carried out with soft scrub using normal saline and chlorhexidine solution. Later the demarcated, deepithelialized tissue was carefully removed from the wounds. The main wounds were now exposed. They were debrided initially with #6 and #7 curets. The worst wounds were on the left leg dorsal surface, all five toes, heel and lateral surface. After the curettage, the wounds were thoroughly irrigated and debrided using ultrasound, Harmonic, Versajet debrider and printer apprentice. Upon completion, the tissues were bright red and pink. Deep tissue biopsies were taken for cultures and pathology. Completion photograph was taken. This extremity was covered with moist sponges. Our attention was now turned to the right lower extremity. The main wound was involving the posterior heel ulcer site. This was debrided with the curet and later with Versajet printer apprentice and debrider. The wound dressings at all sites consisted of Xeroform gauze with a secondary dressing of 4 x 4 AMD gauze, reinforced with ABD pad, Kerlix bandage from the toes up to the upper calf and secured with Te bandages. Similar dressing was carried out for the right leg. Estimated blood loss was 10 mL. Count of all swabs, instruments and needles was reported to be correct. Operation was well tolerated. VD:shelley Job ID: [id number] Doc ID: [id number] Chong Rojo MD
[2016-10-15] MEDS ORDERED: TAMSULOSIN 0.4 MG CAPSULE PO SCH (21:00)
[2016-10-15] MEDS ORDERED: CYANOCOBALAMIN (VITAMIN B-12) 500 MCG TABLET PO SCH (21:00)
[2016-10-15] MEDS ORDERED: KETOCONAZOLE 2% TOP CRM 15GM TUBE TOPICAL SCH (21:00)
[2016-10-15] MEDS ORDERED: ATORVASTATIN 20 MG TABLET PO SCH (21:00)
[2016-10-15] MEDS ORDERED: SENNOSIDES/DOCUSATE SODIUM 1 TAB TABLET PO SCH (21:00)
[2016-10-15] MEDS ORDERED: OXANDROLONE 2.5 MG TABLET PO SCH (21:00)
[2016-10-15] MEDS ORDERED: DOCUSATE SODIUM 100 MG CAPSULE PO SCH (21:00)
[2016-10-16] MEDS: HYDROmorphone 2 MG TABLET PO PRN (04:07)
[2016-10-16] MEDS: 0.9 % SODIUM CHLORIDE 10 ML SYRINGE IV SCH (04:08)
[2016-10-16] MEDS: PIPERACILLIN SODIUM/TAZOBACTAM 3.375 GM in DEXTROSE 5% IN WATER 50 ML IV SCH (05:15)
[2016-10-16 06:10] LABS: Mean Cell Volume 86.9 fL (80.0-100.0); Mean Corpuscular Hemoglobin 27.8 pg (26.0-34.0); Platelet Count 281 K/mcL (140-440); RBC 4.04 M/mcL (4.50-5.90); Red Cell Distribution Width 16.7 % (11.5-14.5)
[2016-10-16 06:18] LABS: ALT/SGPT 13 U/l (0-40); Albumin 2.6 gm/dL (3.2-5.2); Albumin/Globulin Ratio 0.7 (1.0-2.3); Alkaline Phosphatase 64 U/L (39-117); Bilirubin,Direct < 0.2 mg/dL (0.0-0.3); Blood Urea Nitrogen 23 mg/dl (8-23); Gamma Glutamyl Transpeptidase 15 U/L (8-61); Magnesium 1.8 mg/dL (1.6-2.5); Uric Acid 5.6 mg/dL (2.5-8.0)
[2016-10-16] MEDS: INSULIN LISPRO 1 UNIT/0.01 ML UNIT SQ SCH (06:48)
[2016-10-16] MEDS: CARVEDILOL 12.5 MG TABLET PO SCH (06:52)
[2016-10-16] MEDS: glipiZIDE 5 MG TABLET PO SCH (06:52)
[2016-10-16] MEDS: MISOPROSTOL 100 MCG TABLET PO SCH (06:52)
[2016-10-16 08:29] LABS: Anisocytosis 1+ (NONE SEEN); Band Neutrophils % 1 % (0-10); Eosinophils % (Manual) 5 % (0-7); Lymphocytes % 6 % (15-49); Monocytes % (Manual) 4 % (1-12); Myelocytes % 1 % (0-0); Platelet Estimate NORMAL (NORMAL); RBC Morphology ABNORM (NORMAL); Segmented Neutrophils % 83 % (38-78)
[2016-10-16] MEDS ORDERED: MULTIVIT,THER IRON,CA,FA & MIN 1 TABLET PO SCH (09:00)
[2016-10-16] MEDS ORDERED: FAMOTIDINE 20 MG TABLET PO SCH (09:00)
[2016-10-16] MEDS ORDERED: FINASTERIDE 5 MG TABLET PO SCH (09:00)
[2016-10-16] MEDS ORDERED: ALLOPURINOL 100 MG TABLET PO SCH (09:00)
[2016-10-16] MEDS ORDERED: MAGNESIUM GLUCONATE 30 MG PO SCH (09:00)
[2016-10-16] MEDS ORDERED: INSULIN GLARGINE, HUMAN 1 UNIT/0.01 ML SQ SCH (09:00)
[2016-10-16] MEDS ORDERED: TIMOLOL 0.5% OPHTH DROPS BOTTLE 5ML OD SCH (09:00)
[2016-10-16] MEDS ORDERED: FOLIC ACID 1 MG TABLET PO SCH (09:00)
[2016-10-16] MEDS ORDERED: SPIRONOLACTONE 25 MG TABLET PO SCH (09:00)
[2016-10-16] MEDS ORDERED: CLOPIDOGREL 75 MG TABLET PO SCH (09:00)
[2016-10-16] MEDS ORDERED: AMIODARONE HCL 200 MG TABLET PO SCH (09:00)
--- NOTE | 2016-10-16 10:04 | Discharge Plan ---
Discharge Plan - Patient/Caregiver Discharge Instructions Discharge Summary: please refer to discharge summary for detailed course of events Activity: as per physical therapy Diet: Consistent Carbohydrate Additional Instructions: Zosyn for Pseudomonas/providentia and sterp coverage Plavix per Dr MURILLO- recent LE stent Wound care per Dr Rojo-See discharge plan note Activity per Physical Therapy May transfer via ambulance to [facility] Prescriptions: Clopidogrel Bisulfate [Plavix] 75 mg PO DAILY #7 tablet - Follow up Plan Follow up with: Bandar Faria [Primary Care Provider] - Disposition: er [facility] Prognosis: Fair Rehab Potential: Fair I certify that the patient requires SNF services.: No Overall status at discharge: patient is not back to baseline
[2016-10-16] MEDS ORDERED: WARFARIN 3 MG TABLET PO SCH (14:00)
--- NOTE | 2016-10-17 08:25 | Surgical Pathology Report ---
HISTOLOGY SPECIMEN MICROSCOPIC DIAGNOSIS SOFT TISSUE, LEFT FIRST AND SECOND TOES, DEBRIDEMENT: -- SKIN AND SOFT TISSUE WITH SUPPURATIVE AND ISCHEMIC NECROSIS. -- NO EVIDENCE OF MALIGNANCY. (SEH:adj) GROSS DESCRIPTION Received in formalin labeled left first and second toe, are multiple irregular red-paul soft tissue fragments which in aggregate measure 0.3 x 0.5 x 1.0 cm. Totally submitted - one cassette. (RAD:sln) Electronically Signed by: Sharri Ortiz D.O.
== END 2016-10-16 07:20 | DRG 854 ==
LOC: ED 15:22 → MEDSUR 18:46
PROVIDERS: ADMIT Internal Medicine; ATTEND Internal Medicine